=== PATIENT | female | born 1955 | race Caucasian/White ===

== ENCOUNTER 2019-10-29 10:30 | Outpatient (CLI) | payer MEDICARE, BC, OTHER, SELFPAY ==
--- NOTE | ~2019-10-29 | MM_ITS ---
EXAMINATION: MM screening ermias BI w kasandra HISTORY: Screening mammogram TECHNIQUE: Craniocaudal and mediolateral oblique 3-D tomosynthesis images were obtained and synthetic 2-D images were generated. CAD analysis was submitted and interpreted. COMPARISON: Comparison to multiple prior studies sequentially, with oldest reviewed study dated 06/01. BREAST PARENCHYMAL COMPOSITION: There are scattered areas of fibroglandular density. FINDINGS: There is no evidence of suspicious mass, calcification, or architectural distortion to sugg est malignancy in either breast. There has been no suspicious interval change. IMPRESSION: 1. No mammographic evidence of malignancy. 2. Recommend routine screening mammography in one year. BI-RADS Category 1: Negative Reviewed, dictated and finalized at location A. RY KILN OPERATOR
== END 2019-10-29 10:31 | disposition home or self-care (01) ==
LOC: ANHIMG 10:38
PROVIDERS: Visit Provider Student in an Organized Health Care Education/Training Program
DX: Z12.31 Encounter for screening mammogram for malignant neoplasm of breast (principal)
CPT/HCPCS: 77063; 77067

== ENCOUNTER 2021-01-25 08:46 | Outpatient (CLI) | payer MEDICARE, BC, OTHER, SELFPAY ==
--- NOTE | ~2021-01-25 | DEXA_ITS ---
Bone Density Report Name: Sally Blount Age: 65 Sex: Female Ethnicity: White Date of : 1955 Indication: monitoring treatment; height loss; hysterectomy; rheumatoid arthritis; Referring Provider: Karina Yoder Study: Bone densitometry was performed. Exam Date: January 25, 2021 Accession number: [id number] Bone Density: Region BMD T-score Z-score Classification AP Spine (L1, L2, L3) 1.085 0.6 2.5 Normal Femoral Neck (Left) 0.688 -1.5 0.2 Osteopenia Total Hip (Left) 0.863 -0.7 0.7 Normal Total Hip Bilateral Avg 0.855 -0.8 0.7 Normal Femoral Neck (Right) 0.689 -1.4 0.2 Osteopenia Total Hip (Right) 0.846 -0.8 0.6 Normal World Health Organization criteria for BMD impression classify patients as: Normal (T-score at or above -1.0), Osteopenia (T-score between -1.0 and -2.5), or Osteoporosis (T-score at or below -2.5). 10-year Fracture Risk: FRAX not reported because: Treated for osteoporosis Previous Exams: Region Exam Age BMD T-score BMD Change BMD Change Date g/cm2 vs Baseline vs Previous AP Spine(L1, L2, L3) 01/25/2021 65 1.085 0.6 0.043(4.1%)# 0.024(2.3%)* 10/21/2018 63 1.061 0.4 0.019(1.8%)# -0.076(-6.7%)* 09/12/2016 61 1.136 1.1 0.095(9.1%)# 0.062(5.7%)# 07/13/2013 58 1.075 0.5 0.033(3.2%)# -0.013(-1.2%)# 02/13/2011 55 1.088 0.6 0.046(4.4%)* -0.070(-6.0%)* 07/07/2008 53 1.158 1.3 0.116(11.1%)* 0.088(8.3%)* 05/27/2006 51 1.069 0.5 0.027(2.6%)* 0.027(2.6%)* 05/21/2003 48 1.042 0.2 Total Hip(Left) 01/25/2021 65 0.863 -0.7 -0.043(-4.8%)# -0.053(-5.8%)* 10/21/2018 63 0.916 -0.2 0.010(1.1%)# 0.025(2.8%) 09/12/2016 61 0.891 -0.4 -0.015(-1.7%)# 0.013(1.5%)# 07/13/2013 58 0.878 -0.5 -0.028(-3.1%)# -0.009(-1.0%)# 02/13/2011 55 0.886 -0.5 -0.019(-2.1%) 0.004(0.4%) 07/07/2008 53 0.883 -0.5 -0.023(-2.6%) 0.026(3.1%) 05/27/2006 51 0.856 -0.7 -0.049(-5.4%)* -0.049(-5.4%)* 05/21/2003 48 0.906 -0.3 Total Hip(Right) 01/25/2021 65 0.846 -0.8 -0.020(-2.3%)# -0.043(-4.9%)* 10/21/2018 63 0.889 -0.4 0.023(2.7%)# 0.028(3.2%)* 09/12/2016 61 0.861 -0.7 -0.005(-0.6%)# -0.008(-1.0%)# 07/13/2013 58 0.870 -0.6 0.003(0.4%)# 0.035(4.2%)# 02/13/2011 55 0.835 -0.9 -0.031(-3.6%)* -0.028(-3.3%)* 07/07/2008 53 0.863 -0.6 -0.003(-0.4%) 0.019(2.3%) 05/27/2006 51 0.844 -0.8 -0.023(-2.6%) -0.023(-2.6%) 05/21/2003 48 0.866 -0.6 *Denotes significance at 95% confidence level, LSC for AP Spine = 0
--- NOTE | ~2021-01-25 | MM_ITS ---
EXAMINATION: MM screening ermias BI w kasandra HISTORY: Screening mammogram TECHNIQUE: Craniocaudal and mediolateral oblique 3-D tomosynthesis images were obtained and synthetic 2-D images were generated. CAD analysis was submitted and interpreted. COMPARISON: 10/29/2019, 10/21/2018, 10/03/2017 bilateral digital screening mammogram examinations BREAST PARENCHYMAL COMPOSITION: There are scattered areas of fibroglandular density. FINDINGS: There is no evidence of suspicious mass, calcification, or architectural distortion to sugg est malignancy in either breast. There has been no suspicious interval change. IMPRESSION: 1. No mammographic evidence of malignancy. 2. Recommend routine screening mammography in one year. BI-RADS Category 1: Negative Reviewed, dictated and finalized at location A.
== END 2021-01-25 08:47 | disposition home or self-care (01) ==
LOC: ANHIMG 08:48
PROVIDERS: Visit Provider Student in an Organized Health Care Education/Training Program
DX: Z12.31 Encounter for screening mammogram for malignant neoplasm of breast (principal); Z78.0 Asymptomatic menopausal state; M85.852 Other specified disorders of bone density and structure, left thigh; M85.851 Other specified disorders of bone density and structure, right thigh
CPT/HCPCS: 77063; 77067; 77080

== ENCOUNTER 2022-01-29 10:20 | Outpatient (CLI) | payer MEDICARE, BC, OTHER, SELFPAY ==
--- NOTE | ~2022-01-29 | MM_ITS ---
EXAMINATION: MM screening ermias BI w kasandra HISTORY: Screening mammogram TECHNIQUE: Craniocaudal and mediolateral oblique 3-D tomosynthesis images were obtained and synthetic 2-D images were generated. CAD analysis was submitted and interpreted. COMPARISON: 01/25/2021, 10/29/2019, 10/21/2018 bilateral screening mammogram examinations BREAST PARENCHYMAL COMPOSITION: There are scattered areas of fibroglandular density. FINDINGS: There is no evidence of suspicious mass, calcification, or architectural distortion to sugg est malignancy in either breast. There has been no suspicious interval change. IMPRESSION: 1. No mammographic evidence of malignancy. 2. Recommend routine screening mammography in one year. BI-RADS Category 1: Negative Reviewed, dictated and finalized at location A.
== END 2022-01-29 10:21 | disposition home or self-care (01) ==
PROVIDERS: Visit Provider Student in an Organized Health Care Education/Training Program
DX: Z12.31 Encounter for screening mammogram for malignant neoplasm of breast (principal)
CPT/HCPCS: 77063; 77067

== ENCOUNTER 2022-09-30 14:40 | Emergency (ER) | payer MEDICARE, BC, OTHER, SELFPAY ==
--- NOTE | ~2022-09-30 | XR_ITS ---
EXAM: XR finger 3rd RT min 2V DATE: 09/30/2022 15:29 HISTORY: trauma, LACERATION TO POSTERIOR SIDE OF 3RD DIGIT @ DIP . COMPARISON: None available. FINDINGS: Normal mineralization. No fracture or dislocation. No lytic or blastic lesion. Severe join t space narrowing, osteophytosis or erosive deformity in the visualized PIP and DIP joints, likely re presenting erosive osteoarthritis or other arthropathy. No erosion or periosteal change. Posterior fi nger laceration, roughly at the level of the distal third proximal phalange of. IMPRESSION: No acute osseous finding in the right third finger. Reviewed, dictated and finalized at location K. ICIAN PRACTICE ADMINISTRATOR
[2022-09-30 14:42] VITALS: BP 136/78; PULSE 73; RESP 16; TEMP 36.6; O2SAT 100
[2022-09-30] MEDS: TETANUS,DIPHTHERIA,AC PERTUSSIS ADULT (0.5 ML) BOOSTRIX IM (15:22)
--- NOTE | 2022-09-30 16:22 | ED.WOUNDLAC ---
HPI - Wound/Laceration General Chief Complaint: Wound/Laceration Stated Complaint: laceration Time Seen by Provider: 09/30/22 14:52 History of Present Illness HPI narrative: Patient is a 67-year-old female who presents ER with a laceration to the right third digit. Middle phalanx dorsal aspect. No numbness or tingling. Normal strength and range of motion. 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 Unknown last tetanus shot. Related Data Home Medications Medication Instructions Recorded Confirmed bupropion HCl 150 mg 24 hr tablet, 150 mg PO QAM 11/02/19 08/13/22 extended release (Wellbutrin XL) irbesartan 150 mg tablet (Avapro) 150 mg PO DAILY 11/02/19 08/13/22 omeprazole 40 mg capsule,delayed 40 mg PO DAILY 11/02/19 08/13/22 release cholecalciferol (vitamin D3) 125 5,000 unit PO DAILY 04/20/20 08/13/22 mcg (5,000 unit) capsule aspirin 81 mg tablet,delayed 81 mg PO DAILY 07/17/21 08/13/22 release atorvastatin 20 mg tablet 20 mg PO DAILY 01/23/22 08/13/22 fenofibrate 54 mg tablet 54 mg PO DAILY 01/23/22 08/13/22 icosapent ethyl 1 gram capsule 2 g PO BID 01/23/22 08/13/22 (Vascepa) Allergies Allergy/AdvReac Type Severity Reaction Status Date / Time Penicillins Allergy Unknown Unknown Verified 08/13/22 10:54 promethazine Allergy Unknown Unknown Verified 08/13/22 10:54 Sulfa (Sulfonamide Allergy Unknown Unknown Verified 08/13/22 10:54 Antibiotics) sulfamethizole Allergy Unknown Unknown Verified 08/13/22 10:54 trimethoprim Allergy Unknown Unknown Verified 08/13/22 10:54 Review of Systems Musculoskeletal: Musculoskeletal: Denies arthralgias and Denies joint swelling Integumentary/Breasts: Skin/Breast: Denies erythema and Denies rash Comments: Finger laceration Neurologic: Denies focal weakness and Denies numbness PMFSH Past Medical History Medical History Acid reflux Epiretinal membrane, right eye FSGS (focal segmental glomerulosclerosis) Heart disease History of vaginal delivery Hypothyroid Kidney disease Liver disease Liver disease Macular hole of right eye Migraines Osteopenia Prediabetes Skin cancer Vitreous membranes and strands of right eye 10/28/2020 - macular peel Surgical History Surgical History H/O vitrectomy Mac repair with epiretinal membrane peel History of cholecystectomy History of hysterectomy [place] teeth removed Family History Family History Mother Hypertension Other Family history of hearing loss Social History Social History Smoking status: Never smoker Second hand tobacco smoke exposure: No Alcohol intake: never Exam Narrative: GENERAL: Well-appearing, well-nourished, and in no acute distress. HEAD: Normocephalic, atraumatic. HEART: Regular rate and rhythm. Normal peripheral pulses. EXTREMITIES: Right third digit with laceration over the middle phalanx on the dorsal aspect. Well approximated. No tendon involvement. Normal strength with flexion extension at the PIP and DIP. Neurovascular intact. SKIN: Warm, dry, no rash. NEURO: Alert and oriented x3. PSYCH: Normal mood and affect. Course Course Emergency Course: I repaired the finger. No bony injury on x-ray as interpreted by me and the radiologist. Tetanus shot updated. Discharge home. Vital Signs Vital signs: Vital Signs Temperature 98 F 09/30/22 14:42 Pulse Rate 73 09/30/22 14:42 Respiratory Rate 16 09/30/22 14:42 Blood Pressure 136/78 09/30/22 14:42 Pulse Oximetry 100 09/30/22 14:42 Temperature 98 F 09/30/22 14:42 Pulse Rate 73 09/30/22 14:42 Respiratory Rate 16 09/30/22 14:42 Blood Pressure 136/78 09/30/22 14:42 Pulse Oximetry 100 09/30/22 14:42 Procedures Laceration Laceratio
[2022-09-30 16:39] VITALS: BP 127/83; PULSE 77; RESP 15; O2SAT 99
== END 2022-09-30 16:40 | disposition home or self-care (01) ==
PROVIDERS: Emergency Provider Emergency Medicine
DX: S61.212A Laceration without foreign body of right middle finger without damage to nail, initial encounter (principal); Z23 Encounter for immunization; I51.9 Heart disease, unspecified; N28.9 Disorder of kidney and ureter, unspecified; K76.9 Liver disease, unspecified; E03.9 Hypothyroidism, unspecified; M85.80 Other specified disorders of bone density and structure, unspecified site; K21.9 Gastro-esophageal reflux disease without esophagitis; R73.03 Prediabetes; Z85.828 Personal history of other malignant neoplasm of skin; Z79.82 Long term (current) use of aspirin; Z90.710 Acquired absence of both cervix and uterus; W26.0XXA Contact with knife, initial encounter
CPT/HCPCS: 12001; 73140; 90471; 90715; 99283

== ENCOUNTER 2023-03-12 09:36 | Outpatient (CLI) | payer MEDICARE, BC, OTHER, SELFPAY ==
--- NOTE | ~2023-03-12 | MM_ITS ---
EXAMINATION: MM screening ermias BI w kasandra HISTORY: Screening mammogram TECHNIQUE: Craniocaudal and mediolateral oblique 3-D tomosynthesis images were obtained and synthetic 2-D images were generated. CAD analysis was submitted and interpreted. COMPARISON: No prior mammogram is available for comparison at this institution. BREAST PARENCHYMAL COMPOSITION: There are scattered areas of fibroglandular density. FINDINGS: There is no evidence of suspicious mass, calcification, or architectural distortion to sugg est malignancy in either breast. There has been no suspicious interval change. IMPRESSION: 1. No mammographic evidence of malignancy. 2. Recommend routine screening mammography in one year. BI-RADS Category 1: Negative Reviewed, dictated and finalized at location A.
--- NOTE | ~2023-03-12 | DEXA_ITS ---
Bone Density Report Name: LORENZA CONWAY Age: 68 Sex: Female Ethnicity: White Date of : 1955 Indication: postmenopausal; screening for osteoporosis; height loss; hysterectomy; rheumatoid arthritis; Referring Provider: LORIN CAPELLAN Study: Bone densitometry was performed. Exam Date: March 12, 2023 Accession number: [id number] Bone Density: Region BMD T-score Z-score Classification AP Spine(L1, L2, L3) 1.075 0.5 2.6 Normal Femoral Neck (Left) 0.711 -1.2 0.5 Osteopenia Total Hip (Left) 0.870 -0.6 0.9 Normal Femoral Neck (Right) 0.644 -1.9 -0.1 Osteopenia Total Hip (Right) 0.831 -0.9 0.6 Normal Total Hip Mean 0.850 -0.8 0.8 Normal World Health Organization criteria for BMD impression classify patients as: Normal (T-score at or above -1.0), Osteopenia (T-score between -1.0 and -2.5), or Osteoporosis (T-score at or below -2.5). 10-year Fracture Risk(1): Major Osteoporotic Fracture 14% Hip Fracture 2.7% Reported Risk Factors: [place] (), Neck BMD=0.644, BMI=27.4, rheumatoid arthritis (1) FRAX(R) Version 3.08. Fracture probability calculated for an untreated patient. Fracture probability may be lower if the patient has received treatment. Previous Exams: Region Exam Age BMD T-score BMD Change BMD Change Date g/cm2 vs Baseline vs Previous AP Spine (L1-L3) 03/12/2023 68 1.075 0.5 0.000 (0.0%)# -0.010 (-0.9%) 01/25/2021 65 1.085 0.6 0.010 (1.0%)# 0.024 (2.3%)* 10/21/2018 63 1.061 0.4 -0.014 (-1.3%) -0.076 (-6.7%) 09/12/2016 61 1.136 1.1 0.062 (5.7%)# 0.062 (5.7%)# 07/13/2013 58 1.075 0.5 Total Hip(Left) 03/12/2023 68 0.870 -0.6 -0.008 (-0.9%) 0.007 (0.9%) 01/25/2021 65 0.863 -0.7 -0.015 (-1.7%) -0.053 (-5.8%) 10/21/2018 63 0.916 -0.2 0.038 (4.3%)# 0.025 (2.8%) 09/12/2016 61 0.891 -0.4 0.013 (1.5%)# 0.013 (1.5%)# 07/13/2013 58 0.878 -0.5 Total Hip(Right) 03/12/2023 68 0.831 -0.9 -0.039 (-4.5%) -0.015 (-1.8%) 01/25/2021 65 0.846 -0.8 -0.024 (-2.7%) -0.043 (-4.9%) 10/21/2018 63 0.889 -0.4 0.020 (2.3%)# 0.028 (3.2%)* 09/12/2016 61 0.861 -0.7 -0.008 (-1.0%) -0.008 (-1.0%) 07/13/2013 58 0.870 -0.6 *Denotes significance at 95% confidence level, LSC for AP Spine = 0.022 g/cm2, LSC for Total Hip = 0.027 g/cm2 # Denotes dissimilar scan types or analysis methods Clinical Information Provided by Patient: Has rheumatoid arthritis Has used the following medications: Vitamin D
== END 2023-03-12 09:37 | disposition home or self-care (01) ==
LOC: ANHIMG 09:38
PROVIDERS: Visit Provider Registered Nurse
DX: Z12.31 Encounter for screening mammogram for malignant neoplasm of breast (principal); Z78.0 Asymptomatic menopausal state; M85.852 Other specified disorders of bone density and structure, left thigh; M85.851 Other specified disorders of bone density and structure, right thigh
CPT/HCPCS: 77063; 77067; 77080

== ENCOUNTER 2023-06-30 11:15 | Emergency (ER) | payer MEDICARE, BC, OTHER, SELFPAY ==
--- NOTE | ~2023-06-30 | XR_ITS ---
EXAMINATION: XR foot LT min 3V DATE: 06/30/2023 13:30 INDICATION: TECHNIQUE: Dorsoplantar, two oblique and lateral views of the left foot were obtained. COMPARISON: None. FINDINGS: 35 degrees hallux valgus. Suggestion of prior bunionectomy/osteotomy at the medial head of the left f irst metatarsal. No fracture. Polyarticular osteoarthritis, moderate severity at the first metatarsop halangeal, second and third tarsal metatarsal, the naviculocuneiform and multiple interphalangeal sruthi nts with mild osteoarthritis at many of the remaining joints throughout the left foot. Small Achilles and plantar calcaneal spurs. IMPRESSION: 1. Moderate polyarticular osteoarthritis at the left mid and forefoot. No acute osseous abnormality. 2. Hallux valgus with likely prior bunionectomy at the medial head of the first metatarsal. Reviewed, dictated and finalized at location A.
[2023-06-30 11:24] VITALS: BP 97/55; PULSE 84; RESP 16; TEMP 36.8; O2SAT 100
--- NOTE | 2023-06-30 13:03 | ED.GENADULT ---
HPI - General Adult General Chief complaint: Extremity Problem,Nontraumatic Stated complaint: L foot pain Time Seen by Provider: 06/30/23 15:31 History of Present Illness HPI narrative: Sally Blount is a 68 y/o female with reports of having pain/ feverish feeling to her left second and third toes that started 4 days ago. She denies any trauma or injury to her toes. Related Data Home Medications Medication Instructions Recorded Confirmed bupropion HCl 150 mg 24 hr tablet, 150 mg PO QAM 11/02/19 01/15/23 extended release (Wellbutrin XL) irbesartan 150 mg tablet (Avapro) 150 mg PO DAILY 11/02/19 01/15/23 omeprazole 40 mg capsule,delayed 40 mg PO DAILY 11/02/19 01/15/23 release cholecalciferol (vitamin D3) 125 5,000 unit PO DAILY 04/20/20 01/15/23 mcg (5,000 unit) capsule aspirin 81 mg tablet,delayed 81 mg PO DAILY 07/17/21 01/15/23 release atorvastatin 20 mg tablet 20 mg PO DAILY 01/23/22 01/15/23 fenofibrate 54 mg tablet 54 mg PO DAILY 01/23/22 01/15/23 omega 1-mje-tvb-fish oil 60 mg-90 1 cap PO DAILY 01/01/23 01/15/23 mg-500 mg capsule (Fish Oil) Allergies Allergy/AdvReac Type Severity Reaction Status Date / Time Penicillins Allergy Unknown Anaphylaxis Verified 06/30/23 15:24 promethazine Allergy Unknown Anaphylaxis Verified 06/30/23 15:24 Sulfa (Sulfonamide Allergy Unknown SHORTNESS Verified 06/30/23 15:24 Antibiotics) OF BREATH sulfamethizole Allergy Unknown SHORTNESS Verified 06/30/23 15:24 OF BREATH trimethoprim Allergy Unknown SHORTNESS Verified 06/30/23 15:24 OF BREATH PMFSH Past Medical History Medical History Acid reflux Epiretinal membrane, right eye FSGS (focal segmental glomerulosclerosis) Heart disease History of vaginal delivery Hypothyroid Kidney disease Liver disease Liver disease Macular hole of right eye Migraines Osteoarthritis (arthritis due to wear and tear of joints) Osteopenia Prediabetes Rheumatoid arteritis Skin cancer Vitreous membranes and strands of right eye 10/28/2020 - macular peel Surgical History Surgical History H/O vitrectomy Mac repair with epiretinal membrane peel History of cholecystectomy History of hysterectomy [place] teeth removed Family History Family History Mother Hypertension Other Family history of hearing loss Social History Social History Smoking status: Never smoker Second hand tobacco smoke exposure: No Alcohol intake: never Substance use: never Lack of Transportation: No Lack of Food: Never True Current Housing: I Have Housing Concerned About Future Housing: No Difficulty Paying Gas/Electric Bills: No Difficulty Paying for Meds: No Currently Unemployed: No Difficulty w/ Childcare or Family Care: Decline to Answer Living arrangements: with family Additional living arrangements comments: Occupation/Education: retired Gender identity (if verbalized by the patient): Female Sexual Orientation (if Verbalized by the Patient): Straight or Heterosexual Spiritual care concerns: No Course Vital Signs Vital signs: Vital Signs Temperature 36.8 C 06/30/23 11:24 Pulse Rate 84 06/30/23 11:24 Respiratory Rate 16 06/30/23 11:24 Blood Pressure 97/55 L 06/30/23 11:24 Pulse Oximetry 100 06/30/23 11:24 Oxygen Delivery Room Air 06/30/23 11:24 Temperature 36.8 C 06/30/23 15:00 Pulse Rate 71 06/30/23 16:51 Respiratory Rate 16 06/30/23 16:51 Blood Pressure 114/68 06/30/23 16:51 Pulse Oximetry 98 06/30/23 16:51 Oxygen Delivery Room Air 06/30/23 15:17 Medical Decision Making Vital Signs Vital Signs: Vital Signs Temperature 36.8 C 06/30/23 11:24 Pulse Rate 84 06/30/23 11:24 Respiratory Rate 16
[2023-06-30 13:16] LABS: Basophils Absolute Auto 0.1 K/mm3 (0.0-0.1); Basophils Percent Auto 0.5 % (0.2-1.2); Eosinophils Absolute Auto 0.2 K/mm3 (0-0.3); Eosinophils Percent Auto 2.3 % (0-4.4); Hematocrit 39.3 % (37.0-47.0); Hemoglobin 12.1 g/dL (12.0-15.0); Immature Granulocyte Absolute 0.02 K/mm3 (0.00-0.031); Immature Granulocyte Percent A 0.2 % (0-0.5); Lymphocytes Absolute Auto 1.82 K/mm3 (0.9-3.2); Lymphocytes Percent Auto 17.9 % (18.3-44.2); Mean Corpuscular HGB Conc 30.8 g/dl (32-36); Mean Corpuscular Hemoglobin 32.2 pg (26-34); Mean Corpuscular Volume 104.5 fl (80-100); Mean Platelet Volume 11.2 fl (7.4-10.4); Monocytes Absolute Auto 0.7 K/mm3 (0.1-0.6); Monocytes Percent Auto 6.7 % (2.6-8.5); Neutrophils Absolute Auto 7.4 K/mm3 (1.3-6.7); Neutrophils Percent Auto 72.4 % (45.5-73.1); Platelet Count Result 208 k/mm3 (150-375); Red Blood Count 3.76 M/mm3 (4.2-5.4); Red Cell Distribution Width 12.6 % (11.5-14.5); White Blood Count 10.2 K/mm3 (4.5-10.0)
[2023-06-30 13:42] LABS: Alanine Aminotransferase 25 U/L (6-35); Albumin Level 4.3 g/dL (3.5-5.1); Alkaline Phosphatase 33 U/L (38-126); Anion Gap 9 mmol/L (8-16); Aspartate Amino Transferase 27 U/L (14-36); Bilirubin,Total 0.5 mg/dL (0.2-1.3); Blood Urea Nitrogen 31 mg/dL (7-17); Calcium 9.8 mg/dL (8.4-10.2); Carbon Dioxide 24 mmol/L (22-30); Chloride 108 mmol/L (98-107); Estimated CRCL calculation 26 ml/min; Estimated Glomerular Filt Rate 30; Glucose 164 mg/dL (65-110); Potassium 4.3 mmol/L (3.4-5.0); Sodium 141 mmol/L (137-145)
[2023-06-30 15:00] VITALS: BP 113/62; PULSE 67; RESP 16; TEMP 36.8; O2SAT 100
[2023-06-30 15:17] VITALS: BP 120/69; PULSE 67; RESP 16; O2SAT 98
[2023-06-30 15:22] VITALS: BP 120/69; PULSE 72; RESP 16; O2SAT 98
--- NOTE | 2023-06-30 16:14 | ED.EXTPRO ---
HPI - Extremity Problem General Chief complaint: Extremity Problem,Nontraumatic Stated complaint: L foot pain Time Seen by Provider: 06/30/23 15:31 History of Present Illness HPI Narrative: This is a 68F with history of HTN, hepatitis and chronic kidney disease who presents to the ED complaining of left foot pain for the past 5 days. She describes it as sore and sharp rated 8-10/10, first present in the 2nd toe, then moving to the 3rd toe. It is associated with spreading redness. She denies recent injury, illness or change in diet. Related Data Home Medications Medication Instructions Recorded Confirmed bupropion HCl 150 mg 24 hr tablet, 150 mg PO QAM 11/02/19 01/15/23 extended release (Wellbutrin XL) irbesartan 150 mg tablet (Avapro) 150 mg PO DAILY 11/02/19 01/15/23 omeprazole 40 mg capsule,delayed 40 mg PO DAILY 11/02/19 01/15/23 release cholecalciferol (vitamin D3) 125 5,000 unit PO DAILY 04/20/20 01/15/23 mcg (5,000 unit) capsule aspirin 81 mg tablet,delayed 81 mg PO DAILY 07/17/21 01/15/23 release atorvastatin 20 mg tablet 20 mg PO DAILY 01/23/22 01/15/23 fenofibrate 54 mg tablet 54 mg PO DAILY 01/23/22 01/15/23 omega 0-dum-qpa-fish oil 60 mg-90 1 cap PO DAILY 01/01/23 01/15/23 mg-500 mg capsule (Fish Oil) Allergies Allergy/AdvReac Type Severity Reaction Status Date / Time Penicillins Allergy Unknown Anaphylaxis Verified 06/30/23 15:24 promethazine Allergy Unknown Anaphylaxis Verified 06/30/23 15:24 Sulfa (Sulfonamide Allergy Unknown SHORTNESS Verified 06/30/23 15:24 Antibiotics) OF BREATH sulfamethizole Allergy Unknown SHORTNESS Verified 06/30/23 15:24 OF BREATH trimethoprim Allergy Unknown SHORTNESS Verified 06/30/23 15:24 OF BREATH Review of Systems Review of Systems: CONSTITUTIONAL: Denies fever, chills, or sweats. CARDIOVASCULAR: Denies chest pain, palpitations, or edema. RESPIRATORY: Denies cough or dyspnea. GASTROINTESTINAL: Denies abdominal pain, nausea, vomiting, or diarrhea. GENITOURINARY: Denies dysuria or hematuria. SKIN: Redness and swelling of the toes of the left foot. Denies itching. MUSCULOSKELETAL: 2nd and 3rd toe pain of the left foot Denies back pain, or myalgia. NEUROLOGIC: Denies headache, numbness, dizziness, or weakness. PSYCHIATRIC: Denies anxiety or depression. [facility] Past Medical History Medical History Acid reflux Epiretinal membrane, right eye FSGS (focal segmental glomerulosclerosis) Heart disease History of vaginal delivery Hypothyroid Kidney disease Liver disease Liver disease Macular hole of right eye Migraines Osteoarthritis (arthritis due to wear and tear of joints) Osteopenia Prediabetes Rheumatoid arteritis Skin cancer Vitreous membranes and strands of right eye 10/28/2020 - macular peel Surgical History Surgical History H/O vitrectomy Mac repair with epiretinal membrane peel History of cholecystectomy History of hysterectomy [place] teeth removed Family History Family History Mother Hypertension Other Family history of hearing loss Social History Social History Smoking status: Never smoker Second hand tobacco smoke exposure: No Alcohol intake: never Substance use: never Lack of Transportation: No Lack of Food: Never True Current Housing: I Have Housing Concerned About Future Housing: No Difficulty Paying Gas/Electric Bills: No Difficulty Paying for Meds: No Currently Unemployed: No Difficulty w/ Childcare or Family Care: Decline to Answer Living arrangements: with family Additional living arrangements comments: Occupation/Education: retired Gender identity (if verbalized by the patient): Female Sexual Orientation (if Verbalized by the Patient): Straight or H
[2023-06-30 16:51] VITALS: BP 114/68; PULSE 71; RESP 16; O2SAT 98
== END 2023-06-30 16:59 | disposition home or self-care (01) ==
PROVIDERS: Nurse Practitioner Family; Emergency Provider Preventive Medicine Aerospace Medicine
DX: L03.116 Cellulitis of left lower limb (principal); E03.9 Hypothyroidism, unspecified; K76.9 Liver disease, unspecified; K21.9 Gastro-esophageal reflux disease without esophagitis; M19.90 Unspecified osteoarthritis, unspecified site; M85.80 Other specified disorders of bone density and structure, unspecified site; Z85.828 Personal history of other malignant neoplasm of skin; Z90.49 Acquired absence of other specified parts of digestive tract; Z90.710 Acquired absence of both cervix and uterus; Z79.82 Long term (current) use of aspirin
CPT/HCPCS: 36415; 73630; 80053; 85025; 99283

== ENCOUNTER 2024-03-09 14:09 | Outpatient (CLI) | payer MEDICARE, BC, OTHER, SELFPAY ==
--- NOTE | ~2024-03-09 | MM_ITS ---
EXAMINATION: MM screening ermias BI w kasandra HISTORY: Screening TECHNIQUE: Craniocaudal and mediolateral oblique 3-D tomosynthesis images were obtained and synthetic 2-D images were generated. CAD analysis was submitted and interpreted. COMPARISON: Comparison to multiple prior studies sequentially, with oldest reviewed study dated 10/2017. BREAST PARENCHYMAL COMPOSITION: Not dense: There are scattered areas of fibroglandular density. FINDINGS: There is no evidence of suspicious mass, calcification, or architectural distortion to sugg est malignancy in either breast. There has been no suspicious interval change. IMPRESSION: 1. No mammographic evidence of malignancy. 2. Recommend routine screening mammography in one year. BI-RADS Category 1: Negative Reviewed, dictated and finalized at location B.
== END 2024-03-09 14:10 | disposition home or self-care (01) ==
LOC: ANHIMG 14:10
PROVIDERS: Visit Provider Registered Nurse
DX: Z12.31 Encounter for screening mammogram for malignant neoplasm of breast (principal)
CPT/HCPCS: 77063; 77067

== ENCOUNTER 2025-02-21 14:14 | Outpatient (CLI) | payer MEDICARE, BC, OTHER, SELFPAY ==
--- NOTE | ~2025-02-21 | DEXA_ITS ---
Bone Density Report Name: LORENZA CONWAY Age: 69 Sex: Female Ethnicity: White Date of : 1955 Indication: postmenopausal; screening for osteoporosis; height loss; hysterectomy; rheumatoid arthritis; Referring Provider: TANJA GUZMAN Study: Bone densitometry was performed. Exam Date: February 21, 2025 Accession number: [id number] Bone Density: Region BMD T-score Z-score Classification AP Spine(L1-L4) 1.145 0.9 3.1 Normal Femoral Neck (Left) 0.710 -1.3 0.7 Osteopenia Total Hip (Left) 0.929 -0.1 1.5 Normal Femoral Neck (Right) 0.677 -1.6 0.4 Osteopenia Total Hip (Right) 0.860 -0.7 0.9 Normal Total Hip Mean 0.894 -0.4 1.2 Normal World Health Organization criteria for BMD impression classify patients as: Normal (T-score at or above -1.0), Osteopenia (T-score between -1.0 and -2.5), or Osteoporosis (T-score at or below -2.5). 10-year Fracture Risk(1): Major Osteoporotic Fracture 13% Hip Fracture 2.4% Reported Risk Factors: [place] (), Neck BMD=0.677, BMI=27.8, rheumatoid arthritis (1) FRAX(R) Version 3.08. Fracture probability calculated for an untreated patient. Fracture probability may be lower if the patient has received treatment. Previous Exams: Region Exam Age BMD T-score BMD Change BMD Change Date g/cm2 vs Baseline vs Previous AP Spine (L1-L4) 02/21/2025 69 1.145 0.9 0.052 (4.8%)# 0.034 (3.0%)* 10/21/2018 63 1.111 0.6 0.018 (1.7%)# -0.035 (-3.0%) 09/12/2016 61 1.146 0.9 0.053 (4.8%)# 0.053 (4.8%)# 07/13/2013 58 1.093 0.4 Total Hip(Left) 02/21/2025 69 0.929 -0.1 0.051 (5.9%)# 0.059 (6.8%)* 03/12/2023 68 0.870 -0.6 -0.008 (-0.9%) 0.007 (0.9%) 01/25/2021 65 0.863 -0.7 -0.015 (-1.7%) -0.053 (-5.8%) 10/21/2018 63 0.916 -0.2 0.038 (4.3%)# 0.025 (2.8%) 09/12/2016 61 0.891 -0.4 0.013 (1.5%)# 0.013 (1.5%)# 07/13/2013 58 0.878 -0.5 Total Hip(Right) 02/21/2025 69 0.860 -0.7 -0.010 (-1.1%) 0.029 (3.5%)* 03/12/2023 68 0.831 -0.9 -0.039 (-4.5%) -0.015 (-1.8%) 01/25/2021 65 0.846 -0.8 -0.024 (-2.7%) -0.043 (-4.9%) 10/21/2018 63 0.889 -0.4 0.020 (2.3%)# 0.028 (3.2%)* 09/12/2016 61 0.861 -0.7 -0.008 (-1.0%) -0.008 (-1.0%) 07/13/2013 58 0.870 -0.6 *Denotes significance at 95% confidence level, LSC for AP Spine = 0.022 g/cm2, LSC for Total Hip = 0.027 g/cm2 # Denotes dissimilar scan types or analysis methods Clinical Information Provided by Patient: Has rheumatoid arthritis Has used the following medications: Vitamin D Has the following medical conditions: Hysterectomy, FSGS/KIDNEY DISEASE Patient maximum height was 63 Menopause Age: 36 Onset of menses at age 12 Number of children 1 Impression: The patient has low bone mass, based on the Right Femoral Neck T-score. The patient has an estimated ten-year risk of hip fracture of 2.4% and an estimated ten-year risk of major fracture of 13%, based on the WHO FRAX algorithm. No significant bone loss was observed. Discussion: BONE DENSITY IS LOW AT ONE OR MORE SKELETAL SITES. This patient's lowest T-score is low at one or more skeletal sites. It meets the World Health Organization's (WHO) criteria for ?low bone mass? (T-score between -1.0 and -2.5). The patient's 10-year risk of fracture as calculated by FRAX is less than the threshold where pharmacological therapy is recommended by the National Osteoporosis Foundation (NOF). However, all treatment decisions require clinical judgment and consideration of individual patient factors, including patient preferences, comorbidities, previous drug use, risk factors not captured in the FRAX model (e.g., frailty, falls, vitamin D deficiency, increased bone turnover, interval significant decline in bone density) and possible under or overestimation of fracture risk by FRAX. The patient should follow a healthful lifestyle (good nutrition with adequate calcium and vitamin D, and appropriate weight-bearing exercise). Follow-Up: Consider repeating this study in 2 to 3 years to reassess this patient's status, or sooner if there is some new clinical indication. Reported by: SEVERO on 02/21/2025 2:55:00 PM. Reviewed, dictated and finalized at location A.
== END 2025-02-21 14:15 | disposition home or self-care (01) ==
PROVIDERS: Visit Provider Nurse Practitioner Family
DX: M85.89 Other specified disorders of bone density and structure, multiple sites (principal); M85.852 Other specified disorders of bone density and structure, left thigh; M85.851 Other specified disorders of bone density and structure, right thigh; R79.89 Other specified abnormal findings of blood chemistry; Z13.820 Encounter for screening for osteoporosis
CPT/HCPCS: 77080

== ENCOUNTER 2025-05-11 08:59 | Outpatient (CLI) | payer MEDICARE, BC, OTHER, SELFPAY ==
--- NOTE | ~2025-05-11 | MM_ITS ---
EXAMINATION: screening [facility] BI w kasandra INDICATION: Asymptomatic, referred for screening mammogram COMPARISON: 03/09/2024 through 10/21/2018 TECHNIQUE: Digital Breast Tomosynthesis CC, MLO views of Both breasts were obtained with computer-aided detection to assist in interpretation of the study. FINDINGS: There are scattered areas of fibroglandular density. There is a mass in the inferior central right breast at middle third. Elsewhere, there are no mammographic features of malignancy. IMPRESSION: 1. Right breast Mass. 2. No evidence of malignancy in the Left breast. RECOMMENDATION: Right breast Diagnostic mammogram with true lateral, appropriate spot compression views and an ultrasound. BI-RADS Category 0: Incomplete: Needs additional imaging evaluation. Reviewed, dictated and finalized at location B. IMPRESSION: 1. Right breast Mass. 2. No evidence of malignancy in the Left breast. RECOMMENDATION: Right breast Diagnostic mammogram with true lateral, appropriate spot compressi on views and an ultrasound. BI-RADS Category 0: Incomplete: Needs additional imaging evaluation.
--- OUTSIDE RECORDS SUMMARY | 2025-05-11 09:44 | XMS_ITS | Encounter Summary ---
Author Organization [facility] Address [address] [place] [address] Phone Care Team Providers Care Heel Sprayer First Name Role Phone Chas Osuna MD Unavailable [phone] Frank Alvarado MD Unavailabl e Margaret Brewster MD Unavailable [phone] Alisha Moe DO Primary Care Provider [phone] Garrett Pierre MD Primary Care Provi sherie Reggie Perry MD Primary Care Provider + Encounter Details Date Type Department Care Team (Late st Contact Info) Description 08/18/2024 Telephone [facility] Medicine Gastroenterology [address] [facility] 12th [place] [address] [place] [address] Cassie Atkins LPN Social History Tobacco Use Types Packs/Day Years Used Date Smoking Tobacco: Never Smokeless Tobacco: Never Alcohol Use Standard Drinks/Week Comments Never 0 (1 standard drink = 0.6 oz pur e alcohol) AUDIT-C Answer Date Recorded Q1: How often do you have a drink containing alcohol? Never 08/09/2024 Q2: How many drinks containi ng alcohol do you have on a typical day when you are drinking? Patient does not drink Q3: How often do you have si x or more drinks on one occasion? 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 Gender Identity Female 06/19/2020 1:01 PM CDT Sexual Orientation Straight 04/20/2019 8: 05 PM CDT documented as of this encounter Plan of Treatment Not on file documented as of this encounter Visit Diagnoses Not on filedocumented in this encounter Care Teams Heel Sprayer First Relationship Specialty Start Date End Date Alisha Moe DO [address] [address] PCP - General Family Medicine 08/09/24 10/11/24 Garrett Pierre MD [address] [facility] [address] [place] [address] PCP - General Internal Medicine 10/12/24 03/08/25 Reggie Perry MD [address] [place] [address] PCP - General Internal Medicine 03/09/25 Chas Osuna MD [address] [facility] [address] [place] [address] Consulting Physician Cardiology 08/09/24 Frank Alvarado MD [address] [place] [address] Consulting Physician Nephrology 08/09/24 Margaret Brewster MD [address] [place] [address] Referring Physician Gastroenterology 08/09/24 documented as of this encounter
--- OUTSIDE RECORDS SUMMARY | 2025-05-11 09:44 | XMS_ITS | Encounter Summary ---
Author Organization [facility] Address [address] [place] [address] Phone Care Team Providers Care Camouflage Specialist Name Role Phone Melvi Coffey MD Primary Care Provider Richardson Navarro Trejo DO Primary Care Provider [phone] Unknown, Notinfile Primary Care Provider Unavail able Dylan Navarro Trejo DO Primary Care Provider [phone] Miscellaneous, Not In File Primary Care Provider Unavailable Miscellaneous, Not In File Primary Care Provider Unavailable [facility] Primary Care Provider [phone] Reggie Padilla MD Primary Care Provider +- [phone] [facility] Primary Care Provider +- [phone] Chas Osuna MD Unavailable [phone] Frank Alvarado MD Unavailabl e Margaret Brewster MD Unavailable + [phone] Alisha Moe DO Primary Care Provider + [phone] Garrett Pierre MD Primary Care Provi sherie Reggie Perry MD Primary Care Provider + Encounter Details Date Type Department Care Team (Late st Contact Info) Description 02/05/2019 Orders Only [facility] Scanning, Provider Social History Tobacco Use Types Packs/Day Years Used Date Smoking Tobacco: Never Smokeless Tobacco: Never Comments Unknown Sex and Gender Information Value Date Recorded Sex Assigned at Not on file Legal Sex Female 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 Gender Identity Female 06/19/2020 1:01 PM CDT Sexual Orientation Straight 04/20/2019 8: 05 PM CDT documented as of this encounter Plan of Treatment Not on file documented as of this encounter Procedures Procedure Name Priority Date/Time Associated Diagnosis Comments SCAN - LABS 02/05/2019 documented in this encounter Results * SCAN - LABS (02/05/2019) us Provider Scanning Final Result documented in this encounter Visit Diagnoses Not on filedocumented in this encounter Care Teams Camouflage Specialist Relationship Specialty Start Date End Date Melvi Coffey MD [address] [place] [address] PCP - General 11/25/17 03/11/21 Navarro Richardson DO [address] [place] [address] PCP - General Family Medicine 03/12/21 03/14/21 Unknown, Notinfile PCP - General 03/15/21 05/27/21 Navarro Richardson DO [address] [place], [place] [address] PCP - General Family Medicine 05/28/21 10/09/21 Miscellaneous, Not In File PCP - General 10/10/21 2 Miscellaneous, Not In File PCP - General 10/11/21 [facility] [address] [place] [address] PCP - General 01/22/22 05/01/22 Reggie Padilla MD [address] [place] [address] PCP - General Internal Medicine 05/02/22 05/05/23 [facility] [address] [place] [address] PCP - General 05/06/23 08/08/24 Alisha Moe DO [address] [address] PCP - General Family Medicine 08/09/24 10/11/24 Garrett Pierre MD [address] [facility] [address] [place] [address] PCP - General Internal Medicine 10/12/24 03/08/25 Reggie Perry MD [address] [place] [address] PCP - General Internal Medicine 03/09/25 Chas Osuna MD [address] [facility] [address] [place] [address] Consulting Physician Cardiology 08/09/24 Frank Alvarado MD [address] [place] [address] Consulting Physician Nephrology 08/09/24 Margaret Brewster MD [address] [place] [address] Referring Physician Gastroenterology 08/09/24 documented as of this encounter
--- OUTSIDE RECORDS SUMMARY | 2025-05-11 09:44 | XMS_ITS | Encounter Summary ---
Author Organization [facility] Address [address] [place] [address] Phone Care Team Providers Care Marketing Support Coordinator Name Role Phone Reggie Padilla MD Primary Care Provider [phone] [facility] Primary Care Provider Chas Osuna MD Unavailable [phone] Frank Alvarado MD Unavailabl e Margaret Brewster MD Unavailable [phone] Alisha Moe DO Primary Care Provider [phone] Garrett Pierre MD Primary Care Provi sherie Reggie Perry MD Primary Care Provider + Encounter Details Date Type Department Care Team (Latest Contact Info) Description 03/14/2023 Orders Only [facility] Scanning, Provider Social History Tobacco Use Types Packs/Day Years Used Date Smoking Tobacco: Never Smokeless Tobacco: Never Alcohol Use Standard Drinks/Week Comments Never 0 (1 standard drink = 0.6 oz pur e alcohol) AUDIT-C Answer Date Recorded Q1: How often do you have a drink containing alc ohol? 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 Gender Identity Female 06/19/2020 1:01 PM CDT Sexual Orientation Straight 04/20/2019 8: 05 PM CDT documented as of this encounter Plan of Treatment Not on file documented as of this encounter Procedures Procedure Name Priority Date/Time Associated Diagnosis Comments SCAN - LABS 03/14/2023 documented in this encounter Results * SCAN - LABS (03/14/2023) us Provider Scanning Edited Result - Final documented in this encounter Visit Diagnoses Not on filedocumented in this encounter Care Teams Marketing Support Coordinator Relationship Specialty Start Date End Date Reggie Padilla MD [address] [place] [address] PCP - General Internal Medicine 05/02/22 05/05/23 [facility] [address] [place] [address] PCP - General 05/06/23 08/08/24 Alisha Moe DO [address] [facility] [address] [address] PCP - General Family Medicine 08/09/24 10/11/24 Garrett Peirre MD [address] [facility] [address] [place] [address] PCP - General Internal Medicine 10/12/24 03/08/25 Reggie Perry MD [address] [place] [address] PCP - General Internal Medicine 03/09/25 Chas Osuna MD [address] [facility] [address] [place] [address] Consulting Physician Cardiology 08/09/24 Frank Alvarado MD [address] [place] [address] Consulting Physician Nephrology 08/09/24 Margaret Brewster MD [address] [place] [address] Referring Physician Gastroenterology 08/09/24 documented as of this encounter
--- OUTSIDE RECORDS SUMMARY | 2025-05-11 09:44 | XMS_ITS | Encounter Summary ---
Author Organization [facility] Address [address] [place] [address] Phone Care Team Providers Care Calculus Professor Name Role Phone Melvi Coffey MD Primary Care Provider Kayla Hall MD Primary Care Provider [phone] Melvi Coffey MD Primary Care Provider Navarro Richardson DO Primary Care Provider [phone] Unknown, Notinfile Primary Care Provider Unavail able Navarro Richardson DO Primary Care Provider [phone] Miscellaneous, Not In File Primary Care Provider Unavailable Miscellaneous, Not In File Primary Care Provider Unavailable [facility] Primary Care Provider [phone] Reggie Padilla MD Primary Care Provider [phone] [facility] Primary Care Provider [phone] Chas Osuna MD Unavailable [phone] Frank Alvarado MD Unavailabl e Margaret Brewster MD Unavailable [phone] Alisha Moe DO Primary Care Provider [phone] Garrett Pierre MD Primary Care Provi sherie Reggie Perry MD Primary Care Provider + Encounter Details Date Type Department Care Team (Late st Contact Info) Description 1955 Orders Only [facility] Scanning, Provider Social History Tobacco Use Types Packs/Day Years Used Date Smoking Tobacco: Never Assessed Comments Unknown Sex and Gender Information Value Date Recorded Sex Assigned at Not on file 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 Gender Identity Female 06/19/2020 1:01 PM CDT Sexual Orientation Straight 04/20/2019 8: 05 PM CDT documented as of this encounter Plan of Treatment Not on file documented as of this encounter Procedures Procedure Name Priority Date/Time Associated Diagnosis Comments SCAN - RADIOLOGY/IMAGING 1955 documented in this encounter Results * SCAN - RADIOLOGY/IMAGING (1955) Anatomical Region Laterality Modality Other us Provider Scanning Final Result documented in this encounter Visit Diagnoses Not on filedocumented in this encounter Care Teams Calculus Professor Relationship Specialty Start Date End Date Melvi Coffey MD [address] [place] [address] PCP - General 07/07/17 11/09/17 [place] [address] [facility] [address] [email or web address], [place] [address] PCP - General 11/10/17 11/24/17 Melvi Coffey MD [address] [place] [address] PCP - General 11/25/17 03/11/21 [place] [address] [facility] [address] [email or web address] [address] PCP - General Family Medicine 03/12/21 03/14/21 Unknown, Notinfile PCP - General 03/15/21 05/27/21 Navarro Richardson Maya [address] [place] [address] PCP - General Family Medicine 05/28/21 10/09/21 Miscellaneous, Not In File PCP - General 10/10/21 2 Miscellaneous, Not In File PCP - General 10/11/21 [facility] [address] [place] [address] PCP - General 01/22/22 05/01/22 Reggie Padilla MD [address] [place] [address] PCP - General Internal Medicine 05/02/22 05/05/23 [facility] [address] [place] [address] PCP - General 05/06/23 08/08/24 Alisha Moe DO [address] [facility] [address] [address] PCP - General Family Medicine 08/09/24 10/11/24 Garrett Pierre MD [address] [place] [address] PCP - General Internal Medicine 10/12/24 03/08/25 Reggie Perry MD [address] [place] [address] PCP - General Internal Medicine 03/09/25 Chas Osuna MD [address] [place] [address] Consulting Physician Cardiology 08/09/24 Frank Alvarado MD [address] [place] [address] Consulting Physician Nephrology 08/09/24 Margaret Brewster MD [address] [place] [address] Referring Physician Gastroenterology 08/09/24 documented as of this encounter
--- OUTSIDE RECORDS SUMMARY | 2025-05-11 09:44 | XMS_ITS | Encounter Summary ---
Author Organization [facility] Address [address] [place] [address] Phone Care Team Providers Care Glue Jointer Operator Name Role Phone Miscellaneous, Not In File Primary Care Provider Unavailable [facility] Primary Care Provider [phone] Reggie Padilla MD Primary Care Provider [phone] [facility] Primary Care Provider [phone] Chas Osuna MD Unavailable [phone] Frank Alvarado MD Unavailabl e Margaret Brewster MD Unavailable [phone] Alisha Moe DO Primary Care Provider [phone] Garrett Pierre MD Primary Care Provi sherie Reggie Perry MD Primary Care Provider + Encounter Details Date Type Department Care Team (Late st Contact Info) Description 10/29/2021 Orders Only [facility] Scanning, Provider [...] on file 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 Gender Identity Female 06/19/2020 1:01 PM CDT Sexual Orientation Straight 04/20/2019 8: 05 PM CDT documented as of this encounter Plan of Treatment Not on file documented as of this encounter Procedures Procedure Name Priority Date/Time Associated Diagnosis Comments SCAN - LABS 10/29/2021 documented in this encounter Results * SCAN - LABS (10/29/2021) us Provider Scanning Final Result documented in this encounter Visit Diagnoses Not on filedocumented in this encounter Care Teams Glue Jointer Operator Relationship Specialty Start Date End Date Miscellaneous, Not In File PCP - General 10/11/21 [facility] [address] [place] [address] PCP - General 01/22/22 05/01/22 Reggie Padilla MD [address] [place] [address] PCP - General Internal Medicine 05/02/22 05/05/23 [facility] [address] [place] [address] PCP - General 05/06/23 08/08/24 Alisha Moe DO [address] [facility] [address] [place] [address] PCP - General Family Medicine 08/09/24 10/11/24 Garrett Pierre MD [address] [facility] [place] [address] PCP - General Internal Medicine 10/12/24 03/08/25 Reggie Perry MD [address] [place] [address] PCP - General Internal Medicine 03/09/25 Chas Osuna MD [address] [facility] [address] [place] [address] Consulting Physician Cardiology 08/09/24 Frank Alvarado MD [address] [place] [address] Consulting Physician Nephrology 08/09/24 Margaret Brewster MD [address] [place] [address] Referring Physician Gastroenterology 08/09/24 documented as of this encounter
--- OUTSIDE RECORDS SUMMARY | 2025-05-11 09:44 | XMS_ITS | Encounter Summary ---
Author Organization [facility] Address [address] [place] [address] Phone Care Team Providers Care Rigging Up Worker Name Role Phone [facility] Primary Care Provider [phone] Chas Osuna MD Unavailable [phone] Frank Alvarado MD Unavailabl e Margaret Brewster MD Unavailable [phone] Alisha Moe DO Primary Care Provider [phone] Garrett Pierre MD Primary Care Provi sherie Reggie Perry MD Primary Care Provider + Encounter Details Date Type Department Care Team (Latest Contact Info) Description 07/15/2023 Orders Only [facility] Scanning, Provider [...] on file 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 Gender Identity Female 06/19/2020 1:01 PM CDT Sexual Orientation Straight 04/20/2019 8: 05 PM CDT documented as of this encounter Plan of Treatment Not on file documented as of this encounter Procedures Procedure Name Priority Date/Time Associated Diagnosis Comments SCAN - LABS 07/15/2023 documented in this encounter Results * SCAN - LABS (07/15/2023) us Provider Scanning Final Result documented in this encounter Visit Diagnoses Not on filedocumented in this encounter Care Teams Rigging Up Worker Relationship Specialty Start Date End Date [facility] [address] [place] [address] PCP - General 05/06/23 08/08/24 Alisha Moe DO [address] [facility] [address] [place] [address] PCP - General Family Medicine 08/09/24 10/11/24 Garrett Pierre MD [address] [facility] [address] [place] [address] PCP - General Internal Medicine 10/12/24 03/08/25 Reggie Perry MD [address] [place] [address] PCP - General Internal Medicine 03/09/25 Cahs Osuna MD [address] [facility] [address] [place] [address] Consulting Physician Cardiology 08/09/24 Frank Alvarado MD [address] [place] [address] Consulting Physician Nephrology 08/09/24 Margaret Brewster MD [address] [place] [address] Referring Physician Gastroenterology 08/09/24 documented as of this encounter
--- OUTSIDE RECORDS SUMMARY | 2025-05-11 09:44 | XMS_ITS | Encounter Summary ---
Author Organization [facility] Address [address] [place] [address] Phone Care Team Providers Care Vending Service Technician Name Role Phone Melvi Coffey MD Primary Care Provider Richardson Navarro Trejo DO Primary Care Provider [phone] Unknown, Notinfile Primary Care Provider Unavail able Dylan Navarro Trejo DO Primary Care Provider [phone] Miscellaneous, Not In File Primary Care Provider Unavailable Miscellaneous, Not In File Primary Care Provider Unavailable [facility] Primary Care Provider [phone] Reggie Padilla MD Primary Care Provider +- [phone] [facility] Primary Care Provider +- [phone] Chas Osuna MD Unavailable [phone] Frank Alvarado MD Unavailabl e Margaret Brewster MD Unavailable + [phone] Alisha Moe DO Primary Care Provider + [phone] Garrett Pierre MD Primary Care Provi sherie Reggie Perry MD Primary Care Provider + Encounter Details Date Type Department Care Team (Late st Contact Info) Description 03/07/2021 Orders Only [facility] Scanning, Provider Social History Tobacco Use Types Packs/Day Years Used Date Smoking Tobacco: Never Smokeless Tobacco: Never Alcohol Use Standard Drinks/Week Comments Never 0 (1 standard drink = 0.6 oz pur e alcohol) AUDIT-C Answer Date Recorded Frequency of Alcohol Consumption Never 04/26/2019 Average Number of Drinks Not on file 019 Frequency of Binge Drinking Not on file 04/02 Comments No Sex and Gender Information Value Date Recorded Sex Assigned at Not on file 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 Gender Identity Female 06/19/2020 1:01 PM CDT Sexual Orientation Straight 04/20/2019 8: 05 PM CDT documented as of this encounter Plan of Treatment Not on file documented as of this encounter Procedures Procedure Name Priority Date/Time Associated Diagnosis Comments SCAN - RADIOLOGY/IMAGING 03/07/2021 documented in this encounter Results * SCAN - RADIOLOGY/IMAGING (03/07/2021) Anatomical Region Laterality Modality Other us Provider Scanning Final Result documented in this encounter Visit Diagnoses Not on filedocumented in this encounter Care Teams Vending Service Technician Relationship Specialty Start Date End Date Melvi Coffey MD [address] [place], [place] [address] PCP - General 11/25/17 03/11/21 Navarro Richardson DO [address] [place] [address] PCP - General Family Medicine 03/12/21 03/14/21 Unknown, Notinfile PCP - General 03/15/21 05/27/21 Navarro Richardson DO [address] [place] [address] PCP - General Family Medicine 05/28/21 10/09/21 Miscellaneous, Not In File PCP - General 10/10/21 2 Miscellaneous, Not In File PCP - General 10/11/21 [facility] [address] [place] [address] PCP - General 01/22/22 05/01/22 Reggie Padilla MD [address] [place] [address] PCP - General Internal Medicine 05/02/22 05/05/23 [facility] [address] [place] [address] PCP - General 05/06/23 08/08/24 Alisha Moe DO [address] [address] PCP - General Family Medicine 08/09/24 10/11/24 Garrett Pierre MD [address] [facility] [address] [place] [address] PCP - General Internal Medicine 10/12/24 03/08/25 Reggie Perry MD [address] [place] [address] PCP - General Internal Medicine 03/09/25 Chas Osuna MD [address] [facility] 2300 [place] [address] Consulting Physician Cardiology 08/09/24 Frank Alvarado MD [address] [place] [address] Consulting Physician Nephrology 08/09/24 Margaret Brewster MD [address] [place] [address] Referring Physician Gastroenterology 08/09/24 documented as of this encounter
--- OUTSIDE RECORDS SUMMARY | 2025-05-11 09:44 | XMS_ITS | Encounter Summary ---
Author Organization [facility] Address [address] [place] [address] Phone Care Team Providers Care Back Joiner Name Role Phone Melvi Coffey MD Primary Care Provider Richardson Navarro Trejo DO Primary Care Provider [phone] Unknown, Notinfile Primary Care Provider Unavail able Dylan Navarro Trejo DO Primary Care Provider [phone] Miscellaneous, Not In File Primary Care Provider Unavailable Miscellaneous, Not In File Primary Care Provider Unavailable [facility] Primary Care Provider [phone] Reggie Padilla MD Primary Care Provider +- [phone] [facility] Primary Care Provider +- [phone] Chas Osuna MD Unavailable [phone] Frank Alvarado MD Unavailabl e Margaret Brewster MD Unavailable + [phone] Alisha Moe DO Primary Care Provider + [phone] Garrett Pierre MD Primary Care Provi sherie Reggie Perry MD Primary Care Provider + Encounter Details Date Type Department Care Team (Latest Contact Info) Description 03/01/2021 Orders Only [facility] Scanning, Provider Social History Tobacco Use Types [...] on file 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 Gender Identity Female 06/19/2020 1:01 PM CDT Sexual Orientation Straight 04/20/2019 8: 05 PM CDT documented as of this encounter Plan of Treatment Not on file documented as of this encounter Procedures Procedure Name Priority Date/Time Associated Diagnosis Comments CARDIOLOGY DOCUMENT SCAN 03/01/2021 documented in this encounter Results * SCAN - CARDIOLOGY (03/01/2021) Anatomical Region Laterality Modality Other us Provider Scanning CV CARDIAC SERVICES PROCEDURES Final Result documented in this encounter Visit Diagnoses Not on filedocumented in this encounter Care Teams Back Joiner Relationship Specialty Start Date End Date Melvi Coffey MD [address] [place], [place] [address] PCP - General 11/25/17 03/11/21 Navarro Richardson DO [address] [place], [place] [address] PCP - General Family Medicine 03/12/21 03/14/21 Unknown, Notinfile PCP - General 03/15/21 05/27/21 Navarro Richardson DO [address] [place], [place] [address] PCP - General Family Medicine 05/28/21 10/09/21 Miscellaneous, Not In File PCP - General 10/10/21 2 Miscellaneous, Not In File PCP - General 10/11/21 [facility] [address] [place] [address] PCP - General 01/22/22 05/01/22 Reggie Padilla MD [address] [place] [address] PCP - General Internal Medicine 05/02/22 05/05/23 [facility] [address] [place] [address] PCP - General 05/06/23 08/08/24 Alisha Moe DO [address] [address] PCP - General Family Medicine 08/09/24 10/11/24 Garrett Pierre MD [address] [facility] [address] [place] [address] PCP - General Internal Medicine 10/12/24 03/08/25 Reggie Perry MD [address] [place] [address] PCP - General Internal Medicine 03/09/25 Chas Osuna MD [address] [facility] [address] [place] [address] Consulting Physician Cardiology 08/09/24 Frank Alvarado MD [address] [place] [address] Consulting Physician Nephrology 08/09/24 Margaret Brewster MD [address] [place] [address] Referring Physician Gastroenterology 08/09/24 documented as of this encounter
--- OUTSIDE RECORDS SUMMARY | 2025-05-11 09:44 | XMS_ITS | Encounter Summary ---
Author Organization [facility] Address [address] [place] [address] Phone Care Team Providers Care Extractions Technologist Name Role Phone Melvi Coffey MD Primary Care Provider Richardson Navarro Trejo DO Primary Care Provider [phone] Unknown, Notinfile Primary Care Provider Unavail able Dylan Navarro Trejo DO Primary Care Provider [phone] Miscellaneous, Not In File Primary Care Provider Unavailable Miscellaneous, Not In File Primary Care Provider Unavailable [facility] Primary Care Provider [phone] Reggie Padilla MD Primary Care Provider +- [phone] [facility] Primary Care Provider +- [phone] Chas Osuna MD Unavailable [phone] Frank Alvarado MD Unavailabl e Margaret Brewster MD Unavailable + [phone] Alisha Moe DO Primary Care Provider + [phone] Garrett Pierre MD Primary Care Provi sherie Reggie Perry MD Primary Care Provider + Encounter Details Date Type Department Care Team (Latest Contact Info) Description 03/07/2021 Orders Only [facility] Scanning, Provider [...] on file 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 Gender Identity Female 06/19/2020 1:01 PM CDT Sexual Orientation Straight 04/20/2019 8: 05 PM CDT documented as of this encounter Plan of Treatment Not on file documented as of this encounter Procedures Procedure Name Priority Date/Time Associated Diagnosis Comments SCAN - RADIOLOGY/IMAGING 03/07/2021 documented in this encounter Results * SCAN - RADIOLOGY/IMAGING (03/07/2021) Anatomical Region Laterality Modality Other us Provider Scanning Edited Result - Final documented in this encounter Visit Diagnoses Not on filedocumented in this encounter Care Teams Extractions Technologist Relationship Specialty Start Date End Date Melvi Coffey MD [address] [place], [place] [address] PCP - General 11/25/17 03/11/21 Navarro Richardson DO [address] [place] [address] PCP - General Family Medicine 03/12/21 03/14/21 Unknown, Notinfile PCP - General 03/15/21 05/27/21 Navarro Richardson DO [address] [place] [address] PCP - General Family Medicine 05/28/21 10/09/21 Miscellaneous, Not In File PCP - General 10/10/21 2 Miscellaneous, Not In File PCP - General 10/11/21 [facility] [address] [place] [address] PCP - General 01/22/22 05/01/22 Reggie Padilla MD [address] [place] [address] PCP - General Internal Medicine 05/02/22 05/05/23 [facility] [address] [place] [address] PCP - General 05/06/23 08/08/24 Alisha Moe DO [address] [address] PCP - General Family Medicine 08/09/24 10/11/24 Garrett Pierre MD [address] [facility] [address] [place] [address] PCP - General Internal Medicine 10/12/24 03/08/25 Reggie Perry MD [address] [place] [address] PCP - General Internal Medicine 03/09/25 Chas Osuna MD [address] [facility] [address] [place] [address] Consulting Physician Cardiology 08/09/24 Frank Alvarado MD [address] [place] [address] Consulting Physician Nephrology 08/09/24 Margaret Brewster MD [address] [place] [address] Referring Physician Gastroenterology 08/09/24 documented as of this encounter
--- OUTSIDE RECORDS SUMMARY | 2025-05-11 09:44 | XMS_ITS | Encounter Summary ---
Author Organization [facility] Address [address] [place] [address] Phone Care Team Providers Care Overlay Plastician Name Role Phone Unknown, Notinfile Primary Care Provider Unavail able Dylan Navarro Trejo DO Primary Care Provider [phone] Miscellaneous, Not In File Primary Care Provider Unavailable Miscellaneous, Not In File Primary Care Provider Unavailable [facility] Primary Care Provider [phone] Reggie Padilla MD Primary Care Provider +[phone] [facility] Primary Care Provider +[phone]- [phone] Chas Osuna MD Unavailable [phone] Frank Alvarado MD Unavailabl e Margaret Brewster MD Unavailable +[phone] Alisha Moe DO Primary Care Provider +[phone]- [phone] Garrett Pierre MD Primary Care Provi sherie Reggie Perry MD Primary Care Provider + Encounter Details Date Type Department Care Team (Latest Contact Info) Description 04/02/2021 Orders Only [facility] Scanning, Provider [...] on file 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 Gender Identity Female 06/19/2020 1:01 PM CDT Sexual Orientation Straight 04/20/2019 8: 05 PM CDT documented as of this encounter Plan of Treatment Not on file documented as of this encounter Procedures Procedure Name Priority Date/Time Associated Diagnosis Comments SCAN - LABS 04/02/2021 documented in this encounter Results * SCAN - LABS (04/02/2021) us Provider Scanning Final Result documented in this encounter Visit Diagnoses Not on filedocumented in this encounter Care Teams Overlay Plastician Relationship Specialty Start Date End Date Unknown, Notinfile PCP - General 03/15/21 05/27/21 Navarro Richardson DO [address] [place], [place] [address] PCP - General Family Medicine 05/28/21 10/09/21 Miscellaneous, Not In File PCP - General 10/10/21 2 Miscellaneous, Not In File PCP - General 10/11/21 [facility] [address] [place], [place] [address] PCP - General 01/22/22 05/01/22 Reggie Padilla MD [address] [place] [address] PCP - General Internal Medicine 05/02/22 05/05/23 [facility] [address] [place] [address] PCP - General 05/06/23 08/08/24 Alisha Moe DO [address] [facility] [address] [place] [address] PCP - General Family Medicine 08/09/24 10/11/24 Garrett Pierre MD [address] [facility] [address] [place] [address] PCP - General Internal Medicine 10/12/24 03/08/25 Reggie Perry MD [address] [place] [address] PCP - General Internal Medicine 03/09/25 Chas Osuna MD [address] [facility] [address] [place] [address] Consulting Physician Cardiology 08/09/24 Frank Alvarado MD [address] [place] [address] Consulting Physician Nephrology 08/09/24 Margaret Brewster MD [address] [place] [address] Referring Physician Gastroenterology 08/09/24 documented as of this encounter
--- OUTSIDE RECORDS SUMMARY | 2025-05-11 09:44 | XMS_ITS | Encounter Summary ---
Author Organization [facility] Address [address] [place] [address] Phone Care Team Providers Care Steamer Tender Name Role Phone Melvi Coffey MD Primary Care Provider Richardson Navarro Trejo DO Primary Care Provider [phone] Unknown, Notinfile Primary Care Provider Unavail able Dylan Navarro Trejo DO Primary Care Provider [phone] Miscellaneous, Not In File Primary Care Provider Unavailable Miscellaneous, Not In File Primary Care Provider Unavailable [facility] Primary Care Provider [phone] Reggie Padilla MD Primary Care Provider +- [phone] [facility] Primary Care Provider +- [phone] Chas Osuna MD Unavailable [phone] Frank Alvarado MD Unavailabl e Margaret Brewster MD Unavailable + [phone] Alisha Moe DO Primary Care Provider + [phone] Garrett Pierre MD Primary Care Provi sherie Reggie Perry MD Primary Care Provider + Encounter Details Date Type Department Care Team (Latest Contact Info) Description 08/08/2020 Orders Only [facility] Scanning, Provider [...] on file 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 Gender Identity Female 06/19/2020 1:01 PM CDT Sexual Orientation Straight 04/20/2019 8: 05 PM CDT documented as of this encounter Plan of Treatment Not on file documented as of this encounter Procedures Procedure Name Priority Date/Time Associated Diagnosis Comments SCAN - RADIOLOGY/IMAGING 08/08/2020 documented in this encounter Results * SCAN - RADIOLOGY/IMAGING (08/08/2020) Anatomical Region Laterality Modality Other us Provider Scanning Edited Result - Final documented in this encounter Visit Diagnoses Not on filedocumented in this encounter Care Teams Steamer Tender Relationship Specialty Start Date End Date Melvi Coffey MD [address] [place], [place] [address] PCP - General 11/25/17 03/11/21 Navarro Richardson DO [address] [place], [place] [address] PCP - General Family Medicine 03/12/21 03/14/21 Unknown, Notinfile PCP - General 03/15/21 05/27/21 Navarro Richardson DO [address] [place], [place] [address] PCP - General Family Medicine 05/28/21 10/09/21 Miscellaneous, Not In File PCP - General 10/10/21 2 Miscellaneous, Not In File PCP - General 10/11/21 [facility] [address] [place] [address] PCP - General 01/22/22 05/01/22 Reggie Padilla MD [address] [place] [address] PCP - General Internal Medicine 05/02/22 05/05/23 [facility] [address] [place] [address] PCP - General 05/06/23 08/08/24 Alisha Moe DO [address] [address] PCP - General Family Medicine 08/09/24 10/11/24 Garrett Pierre MD [address] [facility] [address] [place] [address] PCP - General Internal Medicine 10/12/24 03/08/25 Reggie Perry MD [address] [place] [address] PCP - General Internal Medicine 03/09/25 Chas Osuna MD [address] [facility] [address] [place] [address] Consulting Physician Cardiology 08/09/24 Frank Alvarado MD [address] [place] [address] Consulting Physician Nephrology 08/09/24 Margaret Brewster MD [address] [place] [address] Referring Physician Gastroenterology 08/09/24 documented as of this encounter
--- OUTSIDE RECORDS SUMMARY | 2025-05-11 09:44 | XMS_ITS | Encounter Summary ---
Author Organization [facility] Address [address] [place] [address] Phone Care Team Providers Care Remediation Bioanalytics Consultant Name Role Phone Melvi Coffey MD Primary Care Provider Richardson Navarro Trejo DO Primary Care Provider [phone] Unknown, Notinfile Primary Care Provider Unavail able Dylan Navarro Trejo DO Primary Care Provider [phone] Miscellaneous, Not In File Primary Care Provider Unavailable Miscellaneous, Not In File Primary Care Provider Unavailable [facility] Primary Care Provider [phone] Reggie Padilla MD Primary Care Provider +- [phone] [facility] Primary Care Provider +- [phone] Chas Osuna MD Unavailable [phone] Frank Alvarado MD Unavailabl e Margaret Brewster MD Unavailable + [phone] Alisha Moe DO Primary Care Provider + [phone] Garrett Pierre MD Primary Care Provi sherie Reggie Perry MD Primary Care Provider + Encounter Details Date Type Department Care Team (Late st Contact Info) Description 03/06/2021 Orders Only [facility] Scanning, Provider Social [...] on file 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 Gender Identity Female 06/19/2020 1:01 PM CDT Sexual Orientation Straight 04/20/2019 8: 05 PM CDT documented as of this encounter Plan of Treatment Not on file documented as of this encounter Procedures Procedure Name Priority Date/Time Associated Diagnosis Comments SCAN - LABS 03/06/2021 documented in this encounter Results * SCAN - LABS (03/06/2021) us Provider Scanning Final Result documented in this encounter Visit Diagnoses Not on filedocumented in this encounter Care Teams Remediation Bioanalytics Consultant Relationship Specialty Start Date End Date Melvi Coffey MD [address] [place] [address] PCP - General 11/25/17 03/11/21 Navarro Richardson DO [address] [place] [address] PCP - General Family Medicine 03/12/21 03/14/21 Unknown, Notinfile PCP - General 03/15/21 05/27/21 Navarro Richardson DO [address] [place], [place] [address] PCP - General Family Medicine 05/28/21 10/09/21 Miscellaneous, Not In File PCP - General 10/10/21 2 Miscellaneous, Not In File PCP - General 10/11/21 [facility] [address] [place] [address] PCP - General 01/22/22 05/01/22 Reggie Padilla MD [address] [place] [address] PCP - General Internal Medicine 05/02/22 05/05/23 [facility] [address] [place] [address] PCP - General 05/06/23 08/08/24 Alisha Moe DO [address] [address] PCP - General Family Medicine 08/09/24 10/11/24 Garrett Pierre MD 969 [facility] [address] [place] [address] PCP - General Internal Medicine 10/12/24 03/08/25 Reggie Perry MD [address] [place] [address] PCP - General Internal Medicine 03/09/25 Chas Osuna MD [address] [facility] [address] [place] [address] Consulting Physician Cardiology 08/09/24 Frank Alvarado MD [address] [place] [address] Consulting Physician Nephrology 08/09/24 Margaret Brewster MD [address] [place] [address] Referring Physician Gastroenterology 08/09/24 documented as of this encounter
--- OUTSIDE RECORDS SUMMARY | 2025-05-11 09:44 | XMS_ITS | Encounter Summary ---
Author Organization [facility] Address [address] [place] [address] Phone Care Team Providers Care Sales Teacher Name Role Phone Reggie Padilla MD Primary Care Provider [phone] [facility] Primary Care Provider Chas Osuna MD Unavailable [phone] Frank Alvarado MD Unavailabl e Margaret Brewster MD Unavailable [phone] Alisha Moe DO Primary Care Provider +[phone]- [phone] Garrett Pierre MD Primary Care Provi sherie Reggie Perry MD Primary Care Provider + Encounter Details Date Type Department Care Team (Latest Contact Info) Description 08/09/2022 Orders Only [facility] Scanning, Provider [...] on file 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 Gender Identity Female 06/19/2020 1:01 PM CDT Sexual Orientation Straight 04/20/2019 8: 05 PM CDT documented as of this encounter Plan of Treatment Not on file documented as of this encounter Procedures Procedure Name Priority Date/Time Associated Diagnosis Comments SCAN - LABS 08/09/2022 documented in this encounter Results * SCAN - LABS (08/09/2022) us Provider Scanning Final Result documented in this encounter Visit Diagnoses Not on filedocumented in this encounter Care Teams Sales Teacher Relationship Specialty Start Date End Date Reggie Padilla MD [address] [place] [address] PCP - General Internal Medicine 05/02/22 05/05/23 [facility] [address] [place] [address] PCP - General 05/06/23 08/08/24 Alisha Moe DO [address] [facility] [address] [address] PCP - General Family Medicine 08/09/24 10/11/24 Garrett Pierre MD [address] [facility] [address] [place] [address] PCP - General Internal Medicine 10/12/24 03/08/25 Reggie Perry MD [address] [place] [address] PCP - General Internal Medicine 03/09/25 Chas Osuna MD [address] [facility] [place] [address] Consulting Physician Cardiology 08/09/24 Frank Alvarado MD [address] [place] [address] Consulting Physician Nephrology 08/09/24 Margaret Brewster MD [address] [place] [address] Referring Physician Gastroenterology 08/09/24 documented as of this encounter
--- OUTSIDE RECORDS SUMMARY | 2025-05-11 09:44 | XMS_ITS | Encounter Summary ---
Author Organization [facility] Address [address] [place] [address] Phone Care Team Providers Care Herbologist Name Role Phone [facility] Primary Care Provider Chas Osuna MD Unavailable [phone] Frank Alvarado MD Unavailabl e Margaret Brewster MD Unavailable [phone] Alisha Moe DO Primary Care Provider [phone] Garrett Pierre MD Primary Care Provi sherie Reggie Perry MD Primary Care Provider + Encounter Details Date Type Department Care Team (Latest Contact Info) Description 05/16/2023 Orders Only [facility] Katy Hale, CHICHI [address] [facility] [address] [place] [address] Social History Tobacco Use Types Packs/Day Years [...] on file 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 Gender Identity Female 06/19/2020 1:01 PM CDT Sexual Orientation Straight 04/20/2019 8: 05 PM CDT documented as of this encounter Plan of Treatment Not on file documented as of this encounter Procedures Procedure Name Priority Date/Time Associated Diagnosis Comments SCAN - LABS 05/16/2023 documented in this encounter Results * SCAN - LABS (05/16/2023) us Katy Hale RN Final Result documented in this encounter Visit Diagnoses Not on filedocumented in this encounter Care Teams Herbologist Relationship Specialty Start Date End Date [facility] [address] [place] [address] PCP - General 05/06/23 08/08/24 Alisha Moe DO [address] [address] PCP - General Family Medicine 08/09/24 10/11/24 Garrett Pierre MD [address] [place] [address] PCP - General Internal Medicine 10/12/24 03/08/25 Reggie Perry MD [address] [place] [address] PCP - General Internal Medicine 03/09/25 Chas Osuna MD [address] [place] [address] Consulting Physician Cardiology 08/09/24 Frank Alvarado MD [address] [place] [address] Consulting Physician Nephrology 08/09/24 Margaret Brewster MD [address] [place] [address] Referring Physician Gastroenterology 08/09/24 documented as of this encounter
--- OUTSIDE RECORDS SUMMARY | 2025-05-11 09:44 | XMS_ITS | Encounter Summary ---
Author Organization [facility] Address [address] [place] [address] Phone Care Team Providers Care Foam Fabricator Name Role Phone Melvi Coffey MD Primary Care Provider Richardson Navarro Trejo DO Primary Care Provider [phone] Unknown, Notinfile Primary Care Provider Unavail able Dylan Navarro Trejo DO Primary Care Provider [phone] Miscellaneous, Not In File Primary Care Provider Unavailable Miscellaneous, Not In File Primary Care Provider Unavailable [facility] Primary Care Provider [phone] Reggie Padilla MD Primary Care Provider [phone] [facility] Primary Care Provider [phone] Chas Osuna MD Unavailable [phone] Frank Alvarado MD Unavailabl e Margaret Brewster MD Unavailable + [phone] Alisha Moe DO Primary Care Provider + [phone] Garrett Pierre MD Primary Care Provi sherie Reggie Perry MD Primary Care Provider + Encounter Details Date Type Department Care Team (Late st Contact Info) Description 08/08/2020 Orders Only [facility] Scanning, Provider [...] on file 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 Gender Identity Female 06/19/2020 1:01 [...] on filedocumented in this encounter Care Teams Foam Fabricator Relationship Specialty Start Date End Date Melvi Coffey MD [address] [place] [address] PCP - General 11/25/17 03/11/21 Navarro Richardson DO [address] [place] [address] PCP - General Family Medicine 03/12/21 03/14/21 Unknown, Notinfile PCP - General 03/15/21 05/27/21 Navarro Richardson DO [address] [place] [address] PCP - General Family Medicine 05/28/21 10/09/21 Miscellaneous, Not In File PCP - General 10/10/21 2 Miscellaneous, Not In File PCP - General 10/11/21 [facility] [address] [place] [address] PCP - General 01/22/22 05/01/22 Reggie Padilla MD [address] [place] [address] PCP - General Internal Medicine 05/02/22 05/05/23 [facility] [address] [place] [address] PCP - General 05/06/23 08/08/24 Alisha Moe DO [address] [address] PCP - General Family Medicine 08/09/24 10/11/24 Garrett Pierre MD [address] [facility] [address] [place] [address] PCP - General Internal Medicine 10/12/24 03/08/25 Reggie Perry MD [address] [place] [address] PCP - General Internal Medicine 03/09/25 Chas Osuna MD [address] [facility] [address] [place] [address] Consulting Physician Cardiology 08/09/24 Frank Alvarado MD [address] [place] [address] Consulting Physician Nephrology 08/09/24 Margaret Brewster MD [address] [place] [address] Referring Physician Gastroenterology 08/09/24 documented as of this encounter
--- OUTSIDE RECORDS SUMMARY | 2025-05-11 09:44 | XMS_ITS | Clinical Summary ---
Author Organization [facility] Medical [facility] [address] [facility] [place] [address] Care Team Providers Care Spray Dry Operator Name Role Phone Chas Osuna MD Unavailable Frank Alvarado MD Unavailabl e Margaret Brewster MD Unavailable [phone] Reggie Perry MD Primary Care Provider + Allergies Active Allergy Reactions Criticality Noted Date Comments Atorvastatin Joint pain,Fatigue Low 02/27/2024 Sulfamethoxazole-Trimet hoprim Swollen tongue High 05/20/2019 Morphine Headache,Nausea & Vomiting,Nausea And Vomiting,Stomach upset Low 07/04/2023 Penicillins Anaphylaxis,Other (See comments) High 11/01/2008 Promethazine Other (See comments) Low 07/28/2018 Pt states stroke like symptoms /phenergan Medications esomeprazole DR (NexIUM) 40 mg capsule pt 20mg states nightly Active cholecalciferol (VITAMIN D-3) 1,000 unit capsule Take 1 capsule (1,000 Units total) by mouth every morning 02/03/20 13 Active levothyroxine (SYNTHROID) 88 mcg tablet crnp before breakfast 01/24/20 Active Climara 0.0375 mg/[address] 1 patch on the skin once a week 03/07/20 Active azelastine (ASTELIN) 137 mcg (0.1 %) nasal spray Administer 1 spray into each nostril 2 (two) times a day Use in each nostril as directed 30 mL 3 11/20/19 25 Active evolocumab (Repatha SureClick) 140 mg/mL pen injector ADMINISTER 1 ML(140 MG) UNDER THE SKIN EVERY 14 DAYS 6 mL 01/20/20 25 Active diclofenac sodium (VOLTAREN) 1 % gel Apply 4 g topically 4 (four) times a day 200 g 02/02/20 25 026 Active aspirin 81 mg enteric coated tablet TAKE 1 TABLET BY MOUTH DAILY 90 tablet 3 02/10/20 25 Active irbesartan (AVAPRO) 300 mg tabletIndication s:Focal segmental glomeruloscleros is,Essential hypertension Take 1 tablet (300 mg total) by mouth daily 90 tablet 2 02/25/20 25 026 Active alpha lipoic acid 200 mg capsule Take 200 mg by mouth daily Active fluticasone propionate (FLONASE) 50 mcg/actuation nasal sprayIndications :Non-seasonal allergic rhinitis due to pollen Administer 2 sprays into each nostril daily 5 each 5 03/09/20 25 Active spironolactone (ALDACTONE) 25 mg tablet Take 1 tablet (25 mg total) by mouth daily 30 tablet 11 03/29/20 25 026 Active buPROPion (Wellbutrin) 100 mg tabletIndication s:Anxiety with Depression Take 1 tablet (100 mg total) by mouth 2 (two) times a day 180 tablet 1 04/07/20 25 Active icosapent ethyL (VASCEPA) 1 gram capsule TAKE 2 CAPSULES(2 GRAMS) BY MOUTH TWICE DAILY 360 capsule 3 05/01/20 25 Active icosapent ethyL (VASCEPA) 1 gram capsule Take 2 capsules (2 g total) by mouth 2 (two) times a day 360 capsule 3 05/12/20 24 025 Discontinued Active Problems Problem Noted Date Diagnosed Date Non-seasonal allergic rhinitis due to pollen 05/2025 Assessment & Plan (03/09/2025 11:05 AM CDT): Will try flonase 2 sprays each nostril once a day Statin myopathy 03/07/2025 Assessment & Plan (03/07/2025 7:31 AM CDT): Does not tolerate statins secondary to myalgias Greater trochanteric pain syndrome 02/01/2025 Postural dizziness with presyncope 12/08/2024 Assessment & Plan (12/08/2024 3:43 PM CDT): Work-up in ED 11/17/2023 was unremarkable. Upon obtaining further history this occurred amidst a high stress time so I suspect this was a panic attack. She also experienced globus and difficulty moving air transiently which she understandably describes as a traumatic experience. Add duloxetine as otherwise noted Globus sensation 12/08/2024 Assessment & Plan (12/08/2024 3:45 PM CDT): We discussed that this is most likely to be anxiety related particularly as it is not constant however a structural substrate cannot be definitively excluded so will proceed with soft tissue ultrasound Metabolic dysfunction-associated steatohepatitis (MASH) 11/19/2024 Assessment & Plan (03/07/2025 7:30 AM CDT): Most recent FibroScan shows some regression of fibrosis. Assessment & Plan (12/08/2024 3:49 PM CDT): Liver biopsy 2019 revealed steatosis. Most recent Fibroscan shows some regression of fibrosis which is highly encouraging. She continues concerted weight loss efforts Assessment & Plan (11/19/2024 2:21 PM CDT): Liver biopsy 2019 revealed steatosis. Most recent Fibroscan shows improvement. She continues concerted weight loss efforts Routine medical exam 11/19/2024 Assessment & Plan (11/19/2024 2:32 PM CDT): Health maintenance objectives reviewed in orders placed for any outstanding screening if indicated. Physical exam performed as above. Mixed hyperlipidemia 11/19/2024 Assessment & Plan (03/07/2025 7:32 AM CDT): Stable on Repatha and Vascepa. Does not tolerate statins secondary to myalgias Assessment & Plan (11/19/2024 2:37 PM CDT): LDL 98 on 09/2024 FLP Continue Repatha Coronary artery disease invo lving [place] coronary artery of [place] heart with angina pectoris 09/06/2024 Assessment & Plan (03/07/2025 7:30 AM CDT): Nonocclusive. Stable on Repatha. Assessment & Plan (12/08/2024 3:34 PM CDT): Non flow limiting disease on [facility]. Stress/rest MPI from 11/15/2024 shows intact LVSF with small reversible wall motion abnormality unchanged from last study Continue GDMT Assessment & Plan (11/19/2024 2:28 PM CDT): Non flow limiting disease on [facility]. Stress/rest MPI from 11/15/2024 shows intact LVSF with small reversible wall motion abnormality unchanged from last study Continue GDMT BMI 28.0-28.9,adult 08/09/2024 Assessment & Plan (12/08/2024 3:11 PM CDT): BMI Follow-up includes: nutrition counseling, exercise counseling, and education provided. Assessment & Plan (11/18/2024 12:13 PM CDT): BMI Follow-up includes: nutrition counseling, exercise counseling, and education provided. Influenza vaccine refused 08/09/2024 Hormone replacement therapy (postmenopausal) 05/2024 Overview (08/09/2024): Managed by Gynecology. Left hip pain 06/30/2023 Dysuria 06/30/2023 Urinary incontinence 06/30/2023 Mild episode of recurrent major depressive disor sherie 06/30/2023 Assessment & Plan (03/09/2025 10:00 AM CDT): Stable on bupropion Assessment & Plan (08/09/2024 1:42 PM ROLL FORMING SUPERVISOR): Stable. Cont. Current prescription medications. Essential hematuria 06/30/2023 Generalized anxiety disorder 06/30/2023 Assessment & Plan (08/09/2024 1:42 PM ROLL FORMING SUPERVISOR): Clinically improved, continue current prescription medications. History of shingles 06/30/2023 Overview (06/30/2023): Famvir 500mg tid for 7 days. Pictures and information given from [facility]MATOLOGY, ezio Jensen. Hyperopia 06/30/2023 Hypothyroidism 06/30/2023 Overview (08/09/2024): Followed by endocrinology. Assessment & Plan (03/07/2025 7:29 AM CDT): Stable on levothyroxine. Managed by endocrinology Assessment & Plan (08/09/2024 1:10 PM ROLL FORMING SUPERVISOR): Stable. Cont. Current prescription medications, levothyroxine. Managed by Endocrinology. Memory loss 06/30/2023 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 Presbyopia 06/30/2023 Proteinuria 06/30/2023 Regular astigmatism 06/30/2023 Sensorineural hearing loss 06/30/2023 Overview (06/30/2023): Pt has noted some decreased ability to understand conversation. Will refer for audiogram, possible new rx for hearing aids. NO RECORD OF PREVIOUS HEARING EVALUATIONS WERE AVAILABLE FOR COMPARISON -- PT HAS APPT WITH CIVILIAN CORPORATE TRAFFIC MANAGER FOR REVIEW. DIGITAL HEARING AIDS RECOMMENDED BILATERALLY. Varicose veins of both lower extremities Vitamin D deficiency 06/30/2023 Erosive osteoarthritis of multiple sites Overview (08/09/2024): Managed by Rheumatology. Assessment & Plan (03/09/2025 10:48 AM CDT): Multiple sites including left hip and hands. Follows with Rheumatology. Assessment & Plan (12/08/2024 3:34 PM CDT): Diffuse involvement. Presently not on any DMARDs. Presently in pain flare. CKD precludes use of NSAIDs. Trial of duloxetine 20mg q.d. Has upcoming appt with rheumatology Assessment & Plan (11/19/2024 2:27 PM CDT): Diffuse involvement. Presently not on any DMARDs. Presently in pain flare. CKD precludes use of NSAIDs. Trial of duloxetine 20mg q.d. Has upcoming appt with rheumatology Chronic cystitis 06/30/2023 Assessment & Plan (08/09/2024 1:43 PM ROLL FORMING SUPERVISOR): Offered to refer to urology. Patient reports that she has one, but does not have their name. She will call us back and let us know the name. Encouraged follow-up with Urology. Localized, primary osteoarthritis of hand 2022 Overview (06/30/2023): darvocet renewed Knee osteoarthritis 03/24/2021 Erosive osteoarthritis 03/24/2021 KIERRA (renal osteodystrophy) 02/09/2019 Steatosis of liver 11/10/2017 Abnormally low high density lipoprotein (HDL) cholesterol with hypertriglyceridemia 11/10/2017 Gastroesophageal reflux disease 12/26/2015 Assessment & Plan (03/07/2025 7:31 AM CDT): Stable on esomeprazole Focal segmental glomerulosclerosis 02/02/2013 Assessment & Plan (03/07/2025 7:31 AM CDT): Stable. Monitor by Nephrology Hypertensive heart and kidney disease without he art failure 12/29/2010 Assessment & Plan (03/07/2025 7:28 AM CDT): Stable on irbesartan Assessment & Plan (12/08/2024 3:52 PM CDT): Stable. Biopsy proven FSGS. Continue ARB Assessment & Plan (08/09/2024 1:42 PM ROLL FORMING SUPERVISOR): Blood pressure is at goal of less than 140/90, continue current prescription medications, Avapro. Patient's blood pressure is managed by her television cameraman. Stage 3a chronic kidney disease 12/29/2010 Assessment & Plan (03/07/2025 7:28 AM CDT): Stable. Secondary to focal segmental glomerulosclerosis. Follows with Nephrology Assessment & Plan (12/08/2024 3:34 PM CDT): On the basis of FSGS from kidney biopsy in 2019 Stable. Followed by Nephrology. Continue irbesartan Assessment & Plan (11/19/2024 2:18 PM CDT): On the basis of FSGS from kidney biopsy in 2019 Stable. Followed by Nephrology. Continue irbesartan Assessment & Plan (08/09/2024 1:42 PM ROLL FORMING SUPERVISOR): Stable, continue Avapro. Followed by Nephrology. Resolved Problems Problem Noted Date Diagnosed Date Resolved Date Osteoarthritis of left hip 02/01/2025 0 03/09/2025 Hypertension, essential 11/19/2024 07/0 03/2025 Assessment & Plan (11/19/2024 2:30 PM CDT): Normotensive on irbesartan Continue present management Hypertriglyceridemia 11/19/2024 07/07/ 025 Assessment & Plan (11/19/2024 2:31 PM CDT): Vascepa was recently titrated by Dr. Osuna for TG of 266 on 09/2024 FLP Abdominal pain 06/30/2023 08/09/2024 Bladder pain 06/30/2023 08/09/2024 Abnormal electrocardiogram 06/30/2023 1 10/10/2023 Abnormal findings on diagnos tic imaging of breast 06/30/2023 08/09/2024 Ankle edema 06/30/2023 08/09/2024 Candidiasis of vagina 06/30/20232023 Chronic maxillary sinusitis 06/30/2023 08/09/2024 [place] 06/30/2023 08/09/2024 Overview (06/30/2023): pt given RX for carmol; continue to wear pads on area pt agrees w/ POC Cough 06/30/2023 08/09/2024 Familial hypertriglyceridemia 06/30/2023 08/09/2024 Flatulence, eructation and gas pain 06/30/2023 08/09/2024 Ganglion of hand 06/30/2023 08/09/2024 Limb pain 06/30/2023 08/09/2024 Overweight 06/30/2023 08/09/2024 Pain of finger 06/30/2023 08/09/2024 Pain in wrist 06/30/2023 08/09/2024 Sinusitis 06/30/2023 08/09/2024 Stress and adjustment reaction 06/30/2023 08/09/2024 Symptoms involving urinary system 06/30/2023 08/09/2024 Tinea pedis 06/30/2023 08/09/2024 Urinary tract infection 06/30/2023 12/0 05/2024 Osteoarthritis 06/30/2023 06/30/2023 Rheumatoid arthritis of hand 06/30/2023 03/07/2025 Chronic kidney disease 06/30/202308/09 Calculus of gallbladder with out cholecystitis without obstruction 06/30/2023 08/09/2024 Fatty (change of) liver, not elsewhere classified 06/30/2023 08/09/2024 Cellulitis of finger of right hand 10/30/2022 08/09/2024 Pain in right hand 10/30/2022 Abnormal stress test 05/02/2021 024 Overview (05/02/2021): Added automatically from request for surgery [id number] Fatigue 03/25/2021 08/09/2024 Gallstones 04/27/2019 08/09/2024 Stage 3 chronic kidney disease 11/14/2015 08/09/2024 SOB (shortness of breath) Encounters Date Type Department Care Team Description 03/29/2025 Orders Only [facility] Ne[facility] [address] [facility] [address] [place] [id number] Frank Alvarado MD Stage 3a chronic kidney disease (HCC) (Primary Dx) 03/28/2025 Orders Only [facility] Ne[facility]rology [address] [facility] [address] [place] [address] [place] [address] Frank Alvarado MD 03/25/2025 Telephone [facility] [address] [facility] [address] [place] [address] [place] [address] Frank Alvarado MD Keendia PA 03/10/2025 Orders Only [facility] Nephrology [address] [facility] [address] [place] [address] [place] [address] Frank Alvarado MD Persistent proteinuria (Primary Dx); Focal segmental glomerulosclerosis; Stage 3a chronic kidney disease (HCC); Essential hypertension 03/10/2025 Results Follow-Up [facility] Nephrology [address] [facility] [address] [place] [address] [place] [address] Frank Alvarado MD Protein, urine, 24 hour 03/09/2025 10:30 AM CDT Office Visit [facility] [address] [place] [phone] Reggie Perry MD Hypertensive heart and kidney disease without heart failure (Primary Dx); Stage 3a chronic kidney disease (HCC); Acquired hypothyroidism; Metabolic dysfunction-associated steatohepatitis (MASH); Coronary artery disease involving [place] coronary artery of [place] heart with angina pectoris; Mixed hyperlipidemia; Statin myopathy; Focal segmental glomerulosclerosis; Gastroesophageal reflux disease without esophagitis; Erosive osteoarthritis of multiple sites; Mild episode of recurrent major depressive disorder; Non-seasonal allergic rhinitis due to pollen 03/09/2025 9:10 AM CDT - 03/09/2025 11:59 PM CDT Hospital Encounter [facility] [address] [place] [id number] Stage 3a chronic kidney disease (HCC); Persistent proteinuria Discharge Disposition: Discharge to home or self care 02/24/2025 10:30 AM CDT Office Visit [facility] Nephrology [address] [facility] [address] [place] [address] [place] [address] Frank Alvarado MD Stage 3a chronic kidney disease (HCC) (Primary Dx); Benign hypertension with CKD (chronic kidney disease) stage III (HCC); Focal segmental glomerulosclerosis; Persistent proteinuria; Essential hypertension 02/24/2025 Telephone [facility] Nephrology [address] [facility] [address] [place] [id number] Juliann Viera RN 02/24/2025 Orders Only [facility] Nephrology [address] [facility] [address] [place] [phone] Frank Alvarado MD Persistent proteinuria (Primary Dx); Stage 3a chronic kidney disease (HCC) 02/17/2025 8:10 AM CDT Lab [facility] [address] [place] [phone] Chronic kidney disease, unspecified CKD stage; Focal segmental glomerulosclerosis; Essential hypertension; KIERRA (renal osteodystrophy); Stage 3a chronic kidney disease (HCC) from Last 3 Months Immunizations Immunization Administration Dates Next Due Hep A, Adult 10/28/2019,04/26/2019 Hep B Vaccine 02/25/2019,09/11/2018,07/28/2018 Influenza, Quadrivalent, Spl it, Preservative Free, Intramuscular 07/02/2021,08/03/2019,07/28/2018 Influenza, Trivalent, Adjuva nted, Intramuscular 10/02/2024 Influenza, Trivalent, Preser vative Free, Intramuscular 09/04/2016,09/14/2012 Influenza, Unspecified 06/01/2024,2022,07/23/2022,09/08 Moderna SARS-CoV-2 Monovalen t Vaccination (12+ YRS) 12/06/2020,11/08/2020 Pneumococcal Conjugate PCV 13 07/28/2018 Pneumococcal Polysaccharide PPV23 08/03/2019 Sars-CoV-2, Unspecified 03/09/2025(Deferred: Daphney boston Refused) Sars-cov-2 Covid-19 Mrna, Bi valent, Original/usmanron Ba.1 06/17/2022 Td, adsorbed 03/11/2000 Tdap 09/30/2022,04/08/2016 ZOSTER LIVE 09/14/2012 ZOSTER Recombinant 04/26/2019,02/25/2019 Surgical History Surgery Date Site/Laterality Comments WI TOTAL ABDOMINAL HYSTERECT W/WO RMVL TUBE OVARY Hysterectomy - (Added by TW Conv) ABSCESS DRAINAGE Incision And Drainage Of Skin Abscess Back - (Added by TW Conv) WI EXC CYST/ABERRANT BREAST TISSUE OPEN /> LESION Breast Surgery Lumpectomy - (Added by TW Conv) BLADDER SURGERY Bladder Surgery - (Added by TW Conv) WRIST SURGERY Wrist Surgery - (Added by TW Conv) CATARACT EXTRACTION Cataract Surgery - (Added by TW Conv) WI ESOPHAGOGASTRODUODENOSCOP Y TRANSORAL DIAGNOSTIC Diagnostic Esophagogastroduodenoscopy - (Added by TW Conv) WI COLONOSCOPY FLX DX W/MARCO J SPEC WHEN PFRMD Colonoscopy (Fiberoptic) - (Added by TW Conv) WI CORRJ HLX VLGS BNCTY SESM DC W/DOUBLE OSTEOTOMY Hallux Valgus (Bunion) Correction - (Added by TW Conv) CHOLECYSTECTOMY 06/01/20 19 CATARACT EXTRACTION 2012 HYSTERECTOMY 1991 LASIK 2014 Medical History Medical History Date Comments Personal history of other di seases of the digestive system History of esophageal reflux - (Added by TW Conv) Personal history of other en docrine, nutritional and metabolic disease History of hypothyro idism - (Added by TW Conv) Personal history of other di seases of the musculoskeletal system and connective tissue History of osteoarthritis - (Added by TW Conv) Personal history of other di seases of the musculoskeletal system and connective tissue History of rheumatoid arthri tis - (Added by TW Conv) Personal history of other di seases of the nervous system and sense organs History of macular degeneration - (Added by TW Conv) History of colonic polyps Histor y of colon polyps - (Added by TW Conv) Overweight Gallstones Thyroid disease Osteoporosis Arthritis PONV (postoperative nausea a nd vomiting) LIPSCOMB (nonalcoholic steatohepatitis) Hypertension Chronic kidney disease Glomerulosclerosis Cancer (HCC) skin cancer on f julio Osteoarthritis 06/30/2023 GERD (gastroesophageal reflux disease) 2015 Anxiety 2003 Cataract 2015 Migraines 1975 Mixed conductive and sensori neural hearing loss 1984 Family History Medical History Relation Name Comments Heart disease Brother 1 stent Heart disease Brother 2 stent Cancer Father Tasneem Dimas Lung cancer Father Tasneem Dimas Family history of lung cancer - (Added by TW Conv) Aneurysm Mother Edita Dimas Aneurysm - (Add ed by TW Conv) Arthritis Mother Edita Dimas Hearing loss Mother Edita Dimas Heart disease Mother Edita Dimas Hypertension Mother Edita Dimas Family history of hypertension - (Added by TW Conv) Ovarian cancer Paternal Grandmother age u nknown Relation Name Status Comments Brother 1 Brother 2 Father Tasneem Dimas Mother Edita Dimas Paternal Grandmother Social History Tobacco Use Types Packs/Day Years Used Date Smoking Tobacco: Never Passive Smoke Exposure: Never Smokeless Tobacco: Never Alcohol Use Standard Drinks/Week Comments Never 0 (1 standard drink = 0.6 oz pur e alcohol) AUDIT-C Answer Date Recorded Q1: How often do you have a drink containing alcohol? Never 03/09/2025 Q2: How many drinks containi ng alcohol do you have on a typical day when you are drinking? Patient does not drink Q3: How often do you have si x or more drinks on one occasion? Never 03/09/2025 PHQ-2 Answer Date Recorded PHQ-2 Total Score (If total score is 3 or more points, staff should administer the PHQ-9) 2 03/09/2025 Comments No Sex and Gender Information Value Date Recorded Sex Assigned at Not on file Legal Sex Female 10:14 PM ROLL FORMING SUPERVISOR Gender Identity Female 06/19/2020 1:01 PM CDT Sexual Orientation Straight 04/20/2019 8: 05 PM CDT Obstetrics History Para Term AB IAB SAB Ectopic Multiple Livin g Live Births 1 1 1 1 1 Date Outcome GA Total Labor Labor/2nd/3rd Weight Sex Type Anes PTL Rayna A1 A5 Name Clin Term 3.969 kg (8 lb 12 oz) Vag-S pont Living Last Filed Vital Signs Vital Sign Reading Time Taken Comments Blood Pressure 106/60 03/09/2025 10:43 AM CDT Pulse 74 03/09/2025 10:43 AM CDT Temperature 36.8 C (98.2 F) 03/09/2025 10:43 AM CDT Respiratory Rate 18 03/09/2025 10:4 3 AM CDT Oxygen Saturation 98% 03/09/2025 10: 43 AM CDT Inhaled Oxygen Concentration - - Weight 70.2 kg (154 lb 11.2 oz) 025 10:43 AM CDT Height 157.5 cm (5' 2) 03/09/2025 10:4 3 AM CDT Body Mass Index 28.3 03/09/2025 10:43 AM CDT Plan of Treatment Health Maintenance Due Date Last Done Comments Hepatitis C Screening 1955 Osteoporosis Screening-Bone Density Scan 03/12/2025 03/12/2023 Covid-19 Vaccine (2024-10 6 season) 2025 06/17/2022, 07/31/2021, 12/06/2020, Additional history exists Influenza Vaccine (#1) 2025 , 06/01/2024, 07/22/2023, Additional history exists Well Visit 65+ 11/19/2025 11/19/2024 Breast Cancer Screening-Mammogram 03/09/2026 025, 03/09/2024 Depression Screening 03/09/2026 03/09/2025, 11/20/19 25 Fall Risk Assessment 03/09/2026 03/09/2025, 11/19/2024, 05/09/2021 DTaP/Tdap/Td Vaccine (3 - Td or Tdap) 09/30/2032 09/30/2022, 04/08/2016, 03/11/2000 Colon Cancer Screening-Colonoscopy 01/19/20342023 Zoster Vaccine Completed 04/26/2019, 01/31, 09/14/2012 Pneumococcal vaccine 65+ Completed 08/03/2019, 07/03 Procedures Procedure Name Priority Date/Time Associated Diagnosis Comments VOLUME AND PERIOD, URINE, 24 HOUR Routine 03/09/2025 8:00 AM CDT Stage 3a chronic kidney disease (HCC) Persistent proteinuria PROTEIN, URINE, 24 HOUR RESULT Routine 03/09/2025 8:00 AM CDT Stage 3a chronic kidney disease (HCC) Persistent proteinuria PROTEIN, URINE, 24 HOUR Routine 03/09/2025 8:00 AM CDT Stage 3a chronic kidney disease (HCC) Persistent proteinuria URINALYSIS, MICROSCOPIC ONLY Routine 02/17/2025 8:31 AM CDT Chronic kidney disease, unspecified CKD stage Focal segmental glomerulosclerosis Essential hypertension KIERRA (renal osteodystrophy) Stage 3a chronic kidney disease (HCC) URINALYSIS AND REFLEX TO MICROSCOPIC Routine 02/17/2025 8:31 AM CDT Chronic kidney disease, unspecified CKD stage Focal segmental glomerulosclerosis Essential hypertension KIERRA (renal osteodystrophy) Stage 3a chronic kidney disease (HCC) PROTEIN / CREATININE RATIO, URINE, RANDOM Routine 02/17/2025 8:31 AM CDT Chronic kidney disease, unspecified CKD stage Focal segmental glomerulosclerosis Essential hypertension KIERRA (renal osteodystrophy) Stage 3a chronic kidney disease (HCC) EGFR Routine 02/17/2025 8:18 AM CDT Chronic kidney disease, unspecified CKD stage Focal segmental glomerulosclerosis Essential hypertension KIERRA (renal osteodystrophy) Stage 3a chronic kidney disease (HCC) DIFFERENTIAL AUTO Routine 02/17/2025 8:1 8 AM CDT Chronic kidney disease, unspecified CKD stage Focal segmental glomerulosclerosis Essential hypertension KIERRA (renal osteodystrophy) Stage 3a chronic kidney disease (HCC) VITAMIN D 25 HYDROXY Routine 02/17/2025 8:18 AM CDT Chronic kidney disease, unspecified CKD stage Focal segmental glomerulosclerosis Essential hypertension KIERRA (renal osteodystrophy) Stage 3a chronic kidney disease (HCC) PTH Routine 02/17/2025 8:18 AM CDT Chronic kidney disease, unspecified CKD stage Focal segmental glomerulosclerosis Essential hypertension KIERRA (renal osteodystrophy) Stage 3a chronic kidney disease (HCC) CBC WITH AUTO DIFFERENTIAL Routine 02/17/2025 8:18 AM CDT Chronic kidney disease, unspecified CKD stage Focal segmental glomerulosclerosis Essential hypertension KIERRA (renal osteodystrophy) Stage 3a chronic kidney disease (HCC) RENAL FUNCTION PANEL Routine 02/17/2025 8:18 AM CDT Chronic kidney disease, unspecified CKD stage Focal segmental glomerulosclerosis Essential hypertension KIERRA (renal osteodystrophy) Stage 3a chronic kidney disease (HCC) SCREENING MAMMOGRAM Schedule Routine, Read Routine (OP Routine) 03/09/2024 1:00 PM CDT HM DEXA SCAN Routine 03/12/2023 10:34 AM CDT from Last 3 Months or Most Recently Relevant to Health Maintenance Results * (ABNORMAL) Protein, urine, 24 hour (03/09/2025 8:00 AM CDT) Protein, 24 hr, ur 1,461(H) 0 - 150 mg/24H Comment:Testing performed by : [address] [id number] Urine 03/09/2025 8:00 AM CDT 03/09/2025 11:57 AM CDT us Frank Page MD LAB URINE O RDERABLES Final Result [facility] [address] [facility] [place] [address] * Volume and period, urine, 24 hour (03/09/2025 8:00 AM CDT) Volume, ur 2,075 mL Comment:Testing performed by : [address] [address] Period, Urine Collection 1,350 min VIDHI SAMS Comment:Testing performed by : [address] [address] Urine 03/09/2025 8:00 AM CDT 03/09/2025 11:57 AM CDT us Frank Page MD LAB URINE O RDERABLES Final Result VIDHI [address] [facility] Department [place] [address] * (ABNORMAL) Urinalysis reflex to microscopic (02/17/2025 8:31 AM CDT) Color, ur Yellow Yellow Comment:Testing performed by : [address] [address] Clarity, ur Clear Clear VIDHI Comment:Testing performed by : [address] [address] Specific gravity, ur 1.012 1.003 - 1.030 VIDHI Comment:Testing performed by : [address] [address] pH, urine 6.0 VIDHI Comment: Interpretive Data U rine pH is affected by diet, medications, systemic acid-base disturbances, and renal tubular function. pH may affect urinary stone formation. For example, urine pH below 6.0 may help reduce the tendency for calcium phosphate stones and pH greater than 6.0 may reduce the tendency for uric acid stone formation. Source: [facility] Current Interpretive Data was last revised on 2017 Testing performed by: [address] [address] Protein, ur ql 1+(A) Negative VIDHI Comment:Testing performed by : [address] [address] Glucose, ur ql Negative Negative VIDHI Comment:Testing performed by : [address] [address] Ketones, ur Negative Negative VIDHI Comment:Testing performed by : [address] [address] Bilirubin, ur Negative Negative VIDHI Comment:Testing performed by : [address] [address] Blood, ur Trace(A) Negative VIDHI Comment:Testing performed by : [address] [address] Urobilinogen, ur <2.0 <2.0 mg/dL VIDHI Comment:Testing performed by : [address] [address] Nitrite, ur Negative Negative VIDHI SMAS Comment:Testing performed by : [address] [address] Leukocyte esterase, ur Negative Negative VIDHI SAMS Comment:Testing performed by : [address] [address] UA reflex comment Reflex to microscopic UA will be performed. VIDHI SAMS Comment:Testing performed by : [address] [address] Urine 02/17/2025 8:31 AM CDT 02/17/2025 9:04 AM CDT us Frank Page MD LAB URINE O RDERABLES Final Result Performing Organization Address [facility]/ZIP Co de Phone Number VIDHI SAMS [address] [facility] Department [place] [address] * (ABNORMAL) Protein / creatinine ratio, urine, random (02/17/2025 8:31 AM CDT) Protein, ur, quant 65.0 mg/dL Comment: Interpretive Data No reference range established. Current interpretive data was last revised 2019. Testing performed by: [address] [address] Creatinine Ur 65.2 mg/dL VIDHI SAMS Comment: Interpretive Data No reference range established. Current interpretive data was last revised 2019. Testing performed by: [address] [address] Protein/creatinin e ratio 996.9(H) 0.0 - 180.0 mg/g CR VIDHI SAMS Comment:Testing performed by : [address] [address] Urine 02/17/2025 8:31 AM CDT 02/17/2025 9:59 AM CDT us Frank Page MD LAB URINE O RDERABLES Final Result Performing Organization Address City/[facility] Co de Phone Number ELENI[address] [place] [address] * (ABNORMAL) Urinalysis, microscopic only (02/17/2025 8:31 AM CDT) WBC, ur 0-5 0 - 5 /HPF Comment:Testing performed by : [address] [address] RBC, ur 0-2 0 - 2 /HPF VIDHI Comment:Testing performed by : [address] [address] Epithelial cells, squamous, ur 11-20(A) 0 - 5 /HPF VIDHI Comment:Testing performed by : [address] [address] Bacteria, ur Trace(A) VIDHI Comment:Testing performed by : [address] [address] Urine 02/17/2025 8:31 AM CDT 02/17/2025 9:06 AM CDT us Frank Page MD LAB URINE O RDERABLES Final Result Performing Organization Address [facility] Co de Phone Number VIDHI [address] [place] [address] * (ABNORMAL) eGFR (02/17/2025 8:18 AM CDT) eGFR 43(L) >=60 mL/min/1. 73 m2 Comment: Interpretive Data Reference Interval Normal >/= 90 mL/min/1.73m2 Mildly decreased* 60 - 89 mL/min/1.73m2 Mildly to moderately decreased 45 - 59 mL/min/1.73m2 Moderately to severely decreased 30 - 44 mL/min/1.73m2 Severely decreased 15 - 29 mL/min/1.73m2 Kidney Failure < 15 mL/min/1.73m2 *Relative to young adult level Estimated glomerular filtration rate is determined by the 2020 CKD-EPI equation recommended by the National Kidney Foundation (A Unifying Approach to GFR Estimation: Recommendations of the NKF-ASK Task Force on Reassessing the Inclusion of Race in Diagnosing Kidney Disease, JASN 202). The CKD-EPI equation should not be used for patients with unstable renal function and has not been validated in children and those over 70. Current interpretive data was last reviewed 2021. Testing performed by: [facility], [address] [place] [address]., [address] Blood 02/17/2025 8:18 AM CDT 02/17/2025 8:52 AM CDT us Frank Page MD LAB BLOOD O RDERABLES Final Result VIDHI [facility] Department [place] [address] * Differential, auto (02/17/2025 8:18 AM CDT) Neutrophil abs 3.67 1.50 - 6.50 K/cumm Comment:Testing performed by : [address] [address] Imm gran abs 0.02 0.00 - 0.10 K/cumm VIDHI Comment:Testing performed by : [address] [address] Lymphocyte abs 1.69 0.80 - 3.30 K/cumm VIDHI Comment:Testing performed by : [address] [address] Monocyte abs 0.44 0.20 - 0.80 K/cumm VIDHI Comment:Testing performed by : [address] [address] Eosinophil abs 0.17 0.00 - 0.50 K/cumm VIDHI Comment:Testing performed by : [address] [address] Basophil abs 0.05 0.00 - 0.10 K/cumm VIDHI Comment:Testing performed by : [address] [address] Neutrophil pct 60.8 % [facility] Comment: Interpretive Data Percent cell count reference ranges are not reported, since discordance with absolute values may lead to misinterpretation of CBC data. Current Interpretive Data was last revised on 2017. Testing performed by: [address] [address] Imm gran pct 0.3 % [facility] Comment: Interpretive Data Percent cell count reference ranges are not reported, since discordance with absolute values may lead to misinterpretation of CBC data. Current Interpretive Data was last revised on 2017. Testing performed by: [address] [address] Lymphocyte pct 28.0 % [facility] Comment: Interpretive Data Percent cell count reference ranges are not reported, since discordance with absolute values may lead to misinterpretation of CBC data. Current Interpretive Data was last revised on 2017. Testing performed by: [address] [address] Monocyte pct 7.3 % [facility] Comment: Interpretive Data Percent cell count reference ranges are not reported, since discordance with absolute values may lead to misinterpretation of CBC data. Current Interpretive Data was last revised on 2017. Testing performed by: [address] [address] Eosinophil pct 2.8 % [facility] Comment: Interpretive Data Percent cell count reference ranges are not reported, since discordance with absolute values may lead to misinterpretation of CBC data. Current Interpretive Data was last revised on 2017. Testing performed by: [address] [address] Basophil pct 0.8 % [facility] Comment: Interpretive Data Percent cell count reference ranges are not reported, since discordance with absolute values may lead to misinterpretation of CBC data. Current Interpretive Data was last revised on 2017. Testing performed by: [address] [address] Blood 02/17/2025 8:18 AM CDT 02/17/2025 8:53 AM CDT us Frank Page MD LAB BLOOD O RDERABLES Final Result [facility] [address] [facility] Department [place] [address] * (ABNORMAL) CBC with auto differential (02/17/2025 8:18 AM CDT) WBC 6.04 3.80 - 9.90 K/cumm Comment:Testing performed by : [address] [address] Hgb 11.7(L) 11.9 - 15.5 g/dL VIDHI Comment:Testing performed by : [address] [address] Hct 36.4 35.6 - 45.5 % VIDHI Comment:Testing performed by : [address] [address] Plt 177 150 - 400 K/cumm VIDHI Comment:Testing performed by : [address] [address] MPV 11.1 9.1 - 12.3 fL VIDHI Comment:Testing performed by : [address] [address] RBC 3.68(L) 3.90 - 5.20 M/cumm VIDHI Comment:Testing performed by : [address] [address] MCV 98.9(H) 81.3 - 96.4 fL VIDHI Comment:Testing performed by : [address] [address] MCH 31.8 27.1 - 33.3 pg VIDHI Comment:Testing performed by : [address] [address] MCHC 32.1(L) 32.3 - 35.7 g/dL VIDHI Comment:Testing performed by : [address] [address] RDW CV 12.4 11.1 - 14.9 % VDIHI Comment:Testing performed by : [address] [address] RDW SD 44.9 35.7 - 48.1 fL VIDHI SAMS Comment:Testing performed by : [facility], [address] [place] [address]., [address] NRBC abs 0.00 0.00 - 0.01 K/cumm VIDHI SAMS Comment:Testing performed by : [facility], [address] [place] [address]., [address] Blood 02/17/2025 8:18 AM CDT 02/17/2025 8:53 AM CDT Frank Page MD LAB BLOOD O RDERABLES Final Result ELENI[address] [place] [address] * Vitamin D 25 hydroxy (02/17/2025 8:18 AM CDT) Vitamin D 25-OH 44.0 30.0 - 80.0 ng/mL Blood 02/17/2025 8:18 AM CDT 02/17/2025 10:17 AM CDT Frank Page MD LAB BLOOD O RDERABLES Final Result Performing Organization Address City/[facility]/ZIP Co de Phone Number [address] [place] [address] * PTH (02/17/2025 8:18 AM CDT) PTH 37 15 - 65 pg/mL Comment:Testing performed by : [address] [address] Blood 02/17/2025 8:18 AM CDT 02/17/2025 8:52 AM CDT Frank Page MD LAB BLOOD O RDERABLES Final Result [address] [place] [address] * (ABNORMAL) Renal function panel (02/17/2025 8:18 AM CDT) Sodium 142 135 - 145 mmol/L Comment:Testing performed by : [address] [address] Potassium, pl 4.6 3.3 - 4.9 mmol/L VIDHI Comment:Testing performed by : [address] [address] Chloride 108 97 - 110 mmol/L VIDHI Comment:Testing performed by : [address] [address] CO2 24 22 - 32 mmol/L VIDHI Comment:Testing performed by : [address] [address] Anion gap 10 2 - 15 mmol/L VIDHI Comment:Testing performed by : [address] [address] BUN 26(H) 6 - 25 mg/dL [facility] Comment:Testing performed by : [address] [address] Creatinine 1.32(H) 0.60 - 1.10 mg/dL VIDHI Comment:Testing performed by : [address] [address] Glucose 112 70 - 199 mg/dL [facility] Comment: Interpretive Data Fasting glucose >/= 126 mg/dl is diagnostic for diabetes. Fasting is defined as no caloric intake for at least 8 hours. Fasting glucose between 100 mg/dl to 125 mg/dl is diagnostic of prediabetes. In a patient with classic symptoms of hyperglycemia or hyperglycemic crisis, a random glucose >/= 200 mg/dl is diagnostic for diabetes. In the absence of unequivocal hyperglycemia, results should be confirmed by repeat testing. The classification and Diagnosis of Diabetes Diabetes Care 202; 46: S19-S40. Current interpretive data was last revised 2022. Testing performed by: [address] [address] Calcium 9.6 8.5 - 10.3 mg/dL IVDHI Comment:Testing performed by : [address] [address] Phosphorus, pl 3.8 2.3 - 4.5 mg/dL VIDHI SAMS Comment:Testing performed by : [address] [address] Albumin 3.7 3.5 - 5.0 g/dL VIDHI SAMS Comment:Testing performed by : [address] [address] Blood 02/17/2025 8:18 AM CDT 02/17/2025 8:52 AM CDT us Frank Page MD LAB BLOOD O RDERABLES Final Result VIDHI SAMS [address] [facility] Department [place] [address] * Screening Mammogram (03/09/2024 1:00 PM CDT) Anatomical Region Laterality Modality Breast N/A Mammography Historical Provider IMG MAMMO PROCEDURES Supriya l Result * HM DEXA SCAN (03/12/2023 10:34 AM CDT) Марияs Sydney Spaulding MA - 03/12/2023 10:34 AM CDT Results under imaging Historical Provider HEALTH MAINTENANCE Final Result from Last 3 Months or Most Recently Relevant to Health Maintenance Insurance MEDICARE [facility] FEDERAL MEDICARE [facility] FEDERAL FOR LIFE Advance Directives For more information, please contact: [phone] * Full Code (Latest Code Status on File) Date Activated Date Inactivated Comments 05/09/2021 2:18 PM 05/09/2021 11:15 PM * Full Code Date Activated Date Inactivated Comments 06/01/2019 1:50 PM 06/02/2019 7:07 PM 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
--- OUTSIDE RECORDS SUMMARY | 2025-05-11 09:44 | XMS_ITS | Clinical Summary ---
Author Organization [facility] Address [address] [place] [address] Care Team Providers Care Software Computer Specialist Name Role Phone Khalif Adhikari MD Primary Care Provider [phone] Source Comments [facility],non-owned Affiliates and Associated Physician Practices is amultiple site organization consisting of ambulatory clinics and hospital sitesin [place], [place], [place] and [place]. This disclosure is being madepursuant to the Care Everywhere program and may not contain all information available regarding this patient. 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 Gender Identity Not on file Sexual Orientation Not on file Plan of Treatment Health Maintenance Due Date Last Done Comments BONE DENSITY TESTING 1955 COLOGUARD (AGES 45-75) - COL ON CA SCREENING 1955 COLON MONITORING 1953 COLONOSCOPY - COLON CA SCREENING 1953 CT COLONOGRAPHY - COLON CA SCREENING 1955 Colorectal Cancer Screening 1953 FIT - COLON CA SCREENING 1953 FLEX SIG - COLON CA SCREENING 1953 LIPID TESTING 1955 MAMMOGRAM 1953 HEPATITIS C SCREENING 02/27/1971 DTAP/TDAP/TD VACCINES (1 - Tdap) 1972 PNEUMOCOCCAL VACCINE 50+ (1 of 1 - PCV) 2003 ZOSTER VACCINE (1 of 2) 2003 DEPRESSION SCREENING 09/01/2024 COVID-19 VACCINE (1 2023-2 5 season) 2025 INFLUENZA VACCINE (#1) 2025 Respiratory Syncytial Virus (RSV) Vaccine Pt: or over 60 yrs (1 - 1-dose 75+ series) 2028 HEPATITIS B VACCINE Aged Out No longe r eligible based on patient's age to complete this topic HIB VACCINE Aged Out No longer eligi ble based on patient's age to complete this topic HPV VACCINE Aged Out No longer eligi ble based on patient's age to complete this topic MENINGOCOCCAL (Group B) VACC INE SHARED DECISION-MAKING Aged Out No longer eligibl e based on patient's age to complete this topic MENINGOCOCCAL GROUPS A/C/Y/W VACCINE Aged Out No longer eligible b ased on patient's age to complete this topic Insurance [employer] MEDICARE Care Teams Software Computer Specialist Relationship Specialty Start Date End Date Khalif Adhikari MD PCP - General Internal Medicine 10/13/20
--- OUTSIDE RECORDS SUMMARY | 2025-05-11 09:44 | XMS_ITS | Encounter Summary ---
Author Organization [facility] Address [address] [place] [address] Phone Care Team Providers Care Balance Wheel Screw Hole Driller Name Role Phone [facility] Primary Care Provider [phone] Chas Osuna MD Unavailable [phone] Frank Alvarado MD Unavailabl e Margaret Brewster MD Unavailable [phone] Alisha Moe DO Primary Care Provider [phone] Garrett Pierre MD Primary Care Provi sherie Reggie Perry MD Primary Care Provider + Encounter Details Date Type Department Care Team (Latest Contact Info) Description 05/21/2023 Orders Only [facility] Scanning, Provider [...] on file 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 [address] [place] [address] PCP - General 05/06/23 08/08/24 Alisha Moe DO [address] [address] PCP - General Family Medicine 08/09/24 10/11/24 Garrett Pierre MD [address] [facility] [address] [place] [address] PCP - General Internal Medicine 10/12/24 03/08/25 Reggie Perry MD [address] [place] [address] PCP - General Internal Medicine 03/09/25 Chas Osuna MD [address] [facility] [address] [place] [address] Consulting Physician Cardiology 08/09/24 Frank Alvarado MD [address] [place] [address] Consulting Physician Nephrology 08/09/24 Margaret Brewster MD [address] [place] [address] Referring Physician Gastroenterology 08/09/24 documented as of this encounter
--- OUTSIDE RECORDS SUMMARY | 2025-05-11 09:44 | XMS_ITS | Encounter Summary ---
Author Organization [facility] Address [address] [place] [address] Phone Care Team Providers Care Textile Examiner Name Role Phone Reggie Padilla MD Primary Care Provider [facility] Primary Care Provider Chas Osuna MD Unavailable [phone] Frank Alvarado MD Unavailabl e Margaret Brewster MD Unavailable [phone] Alisha Moe DO Primary Care Provider [phone] Garrett Pierre MD Primary Care Provi sherie Reggie Perry MD Primary Care Provider + Encounter Details Date Type Department Care Team (Latest Contact Info) Description 12/25/2022 Orders Only [facility] Scanning, Provider [...] on file 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 Gender Identity Female 06/19/2020 1:01 PM CDT Sexual Orientation Straight 04/20/2019 8: 05 PM CDT documented as of this encounter Plan of Treatment Not on file documented as of this encounter Procedures Procedure Name Priority Date/Time Associated Diagnosis Comments SCAN - LABS 12/25/2022 documented in this encounter Results * SCAN - LABS (12/25/2022) us Provider Scanning Edited Result - Final documented in this encounter Visit Diagnoses Not on filedocumented in this encounter Care Teams Textile Examiner Relationship Specialty Start Date End Date Reggie Padilla MD [address] [place] [address] PCP - General Internal Medicine 05/02/22 05/05/23 [facility] [address] [place] [address] PCP - General 05/06/23 08/08/24 Alisha Moe DO [address] [facility] [address] [address] PCP - General Family Medicine 08/09/24 10/11/24 Garrett Pierre MD [address] [facility] [address] [place] [address] PCP - General Internal Medicine 10/12/24 03/08/25 Reggie Perry MD [address] [place] [address] PCP - General Internal Medicine 03/09/25 Chas Osuna MD [address] [place] [address] Consulting Physician Cardiology 08/09/24 Frank Alvarado MD [address] [place] [address] Consulting Physician Nephrology 08/09/24 Margaret Brewster MD [address] [place] [address] Referring Physician Gastroenterology 08/09/24 documented as of this encounter
--- OUTSIDE RECORDS SUMMARY | 2025-05-11 09:44 | XMS_ITS | Encounter Summary ---
Author Organization [facility] Address [address] [place] [address] Phone Care Team Providers Care Camera Repairer Name Role Phone Chas Osuna MD Unavailable [phone] Frank Alvarado MD Unavailabl e Margaret Brewster MD Unavailable [phone] Reggie Perry MD Primary Care Provider + Encounter Details Date Type Department Care Team (Late st Contact Info) Description 03/10/2025 Results Follow-Up 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 Gender Identity Female 06/19/2020 1:01 PM CDT Sexual Orientation Straight 04/20/2019 8: 05 PM CDT documented as of this encounter Plan of Treatment Not on file documented as of this encounter Visit Diagnoses Not on filedocumented in this encounter Care Teams Camera Repairer Relationship Specialty Start Date End Date Reggie Perry MD [address] [place] [address] PCP - General Internal Medicine 03/09/25 Chas Osuna MD [address] [place] [address] Consulting Physician Cardiology 08/09/24 Frank Alvarado MD [address] [place] [address] Consulting Physician Nephrology 08/09/24 Margaret Brewster MD [address] [place] [address] Referring Physician Gastroenterology 08/09/24 documented as of this encounter
== END 2025-05-11 09:00 | disposition home or self-care (01) ==
PROVIDERS: PCP Obstetrics & Gynecology; Visit Provider Obstetrics & Gynecology
DX: Z12.31 Encounter for screening mammogram for malignant neoplasm of breast (principal); R92.8 Other abnormal and inconclusive findings on diagnostic imaging of breast
CPT/HCPCS: 77063; 77067

== ENCOUNTER 2025-06-15 12:44 | Outpatient (CLI) | payer MEDICARE, BC, OTHER, SELFPAY ==
--- OUTSIDE RECORDS SUMMARY | 2025-06-14 08:30 | XMS_ITS | Encounter Summary ---
Author Organization [facility] Address [address] [place] [address] Care Team Providers Care Fountain Dispenser Name Role Phone Chas Osuna MD Unavailable [phone] Frank Alvarado MD Unavailabl e Margaret Brewster MD Unavailable [phone] Reggie Perry MD Primary Care Provider + Reason for Visit * Reason Comments URI No recent COVID test , symptoms started a little over 3 weeks ago Encounter Details Date Type Department Care Team (Late st Contact Info) Description 06/14/2025 8:30 AM CDT Office Visit [facility] Primary Care [address] [place] [address] Caro Mallory PA [address] [place], [place] [id number] Acute bronchitis, unspecified organism (Primary Dx) Social History Tobacco Use Types Packs/Day Years Used Date Smoking Tobacco: Never Passive Smoke Exposure: Never Smokeless Tobacco: Never Alcohol Use Standard Drinks/Week Comments Never 0 (1 standard drink = 0.6 oz pur e alcohol) PHQ-2 Answer Date Recorded PHQ-2 Total Score 0 06/14/2025 AUDIT-C Answer Date Recorded Q1: How often do you have a drink containing alcohol? Never 06/14/2025 Q2: How many drinks containi ng alcohol do you have on a typical day when you are drinking? Patient does not drink Q3: How often do you have si x or more drinks on one occasion? 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 Gender Identity Female 06/19/2020 1:01 PM CDT Sexual Orientation Straight 04/20/2019 8: 05 PM CDT documented as of this encounter Last Filed Vital Signs Vital Sign Reading Time Taken Comments Blood Pressure 116/74 06/14/2025 8:33 AM CDT Pulse 64 06/14/2025 8:33 AM CDT Temperature 36.7 C (98 F) 06/14/2025 8:33 AM CDT Respiratory Rate 16 06/14/2025 8:33 AM CDT Oxygen Saturation 98% 06/14/2025 8:33 AM CDT Inhaled Oxygen Concentration - - Weight 70.8 kg (156 lb) 06/14/2025 8:33 AM CDT Height 157.5 cm (5' 2) 06/14/2025 8:33 AM CDT Body Mass Index 28.53 06/14/2025 8:33 AM CDT documented in this encounter Functional Status * AUDIT-C Score Answer Date of Assessment Author 0 06/14/2025 8:28 AM CDT Yane Wise MA * Question Answer Date of Assessment Author Q1: How often do you have a drink containing alcohol? Never 06/14/2025 8:28 AM MILANAT Fadia Wise MA Q2: How many drinks containing alcohol do you have on a typical day when you are drinking? Patient does not drink 06/14/2025 8:28 AM IMLANAT Fadia Wise MA Q3: How often do you have six or more drinks on one occasion? Never 06/14/2025 8:28 AM MILANAT Fadia Wise MA documented as of this encounter Ordered Prescriptions Prescription Sig Dispense Quantity Refills Last Filled Start Date End Date albuterol HFA (ProAir HFA) 90 mcg/actuation inhalerIndications :Acute bronchitis, unspecified organism Inhale 2 puffs every 4 (four) hours as needed for wheezing or shortness of breath for up to 15 days 8.5 g 06/14/2025 benzonatate (TESSALON) 100 mg capsuleIndications :Cough Take 1-2 caps every 8 hours as needed 30 capsule 06/14/2025 azithromycin (ZITHROMAX) 250 mg tabletIndications: Acute bronchitis, unspecified organism Take 2 tablets the first day, then 1 tablet daily for 4 days. 6 tablet 06/14/2025 documented in this encounter Progress Notes * Caro Mallory, NEISHA - 06/14/2025 8:30 AM CDT Images from the original note were not included. This patient has verbally consented to recording this visit in order to utilize AI technology in generating this note. Subjective/Objective Patient ID: Sally Blount is a 70 y.o. female. Assessment/Plan Diagnoses and all orders for this visit: Acute bronchitis, unspecified organism (Primary) Assessment & Plan: URI onset 3 weeks ago, expectorant changed color to green and brown one-week ago. Will treat with Z-Gaetano and benzonatate, for shortness of breaths albuterol as needed. Due to more profound generalized malaise, will check chest x-ray to rule out pneumonia. No acute respiratory distress, pulse ox 98%. Orders: - XR Chest Pa Lateral 2 Views; Future - azithromycin (ZITHROMAX) 250 mg tablet; Take 2 tablets the first day, then 1 tablet daily for 4 days. - benzonatate (TESSALON) 100 mg capsule; Take 1-2 caps every 8 hours as needed - albuterol HFA (ProAir HFA) 90 mcg/actuation inhaler; Inhale 2 puffs every 4 (four) hours as needed for wheezing or shortness of breath for up to 15 days Patient stated she had bone density and mammogram at [facility] 4 months ago, will request records. 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 09/06/2024 BMI 28.0-28.9,adult 08/09/2024 Influenza vaccine refused 08/09/2024 Hormone replacement therapy (postmenopausal) 08/09/2024 Left hip pain 06/30/2023 Dysuria 06/30/2023 Urinary incontinence 06/30/2023 Mild episode of recurrent major depressive disorder 06/30/2023 Essential hematuria 06/30/2023 Generalized anxiety disorder 06/30/2023 History of shingles 06/30/2023 Hyperopia 06/30/2023 Hypothyroidism 06/30/2023 Memory loss 06/30/2023 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 Presbyopia 06/30/2023 Proteinuria 06/30/2023 Regular astigmatism 06/30/2023 Sensorineural hearing loss 06/30/2023 Varicose veins of both lower extremities 06/30/2023 Vitamin D deficiency 06/30/2023 Erosive osteoarthritis of multiple sites 06/30/2023 Chronic cystitis 06/30/2023 Localized, primary osteoarthritis of hand 10/30/2022 Knee osteoarthritis 03/24/2021 Erosive osteoarthritis 03/24/2021 KIERRA (renal osteodystrophy) 02/09/2019 Steatosis of liver 11/10/2017 Abnormally low high density lipoprotein (HDL) cholesterol with hypertriglyceridemia 11/10/2017 Gastroesophageal reflux disease 12/26/2015 Focal segmental glomerulosclerosis 02/02/2013 Hypertensive heart and kidney disease without heart failure 12/29/2010 Stage 3a chronic kidney disease (HCC) 12/29/2010 Chief Complaint Chief Complaint Patient presents with URI No recent COVID test, symptoms started a little over 3 weeks ago HPI History of Present Illness Sally Blount is a 70 year old female who presents with a three-week history of upper respiratory symptoms and fatigue. She had clear nasal drainage that progressed to a sore throat, productive cough with mucus, and significant fatigue. The cough is associated with dry mouth and cracked lips, and there is a bump on the inside of her lower lip. Severe fatigue persists, with ten hours of sleep at night and additional daytime naps. She experiences shortness of breath without wheezing, and there is no fever or chills.Approximately a week and a half ago, cough mucus changed to green and brown. Luwi-hwf-tfwfdod medications, including a cough suppressant and Sudafed, provide temporary relief. She has right-sided earpain without drainage. She is allergic to penicillin. Prior to getting ill patient fell well at baseline. Review of Systems All other systems reviewed and are negative. Vitals BP 116/74 (BP Location: Left arm, Patient Position: Sitting) Pulse 64 Temp 36.7 ??C (98 ??F) (Skin) Resp 16 Ht 157.5 cm (5' 2) Wt 70.8 kg (156 lb) SpO2 98% BMI 28.53 kg/m?? Current Outpatient Medications Medication Sig Dispense Refill alpha lipoic acid 200 mg capsule Take 200 mg by mouth daily aspirin 81 mg enteric coated tablet TAKE 1 TABLET BY MOUTH DAILY 90 tablet 3 azelastine (ASTELIN) 137 mcg (0.1 %) nasal spray Administer 1 spray into each nostril 2 (two) timesa day Use in each nostril as directed 30 mL 3 buPROPion (Wellbutrin) 100 mg tablet Take 1 tablet (100 mg total) by mouth 2 (two) times a day 180 tablet 1 cholecalciferol (VITAMIN D-3) 1,000 unit capsule Take 1 capsule (1,000 Units total) by mouth every morning Climara 0.0375 mg/[address] 1 patch on the skin once a week esomeprazole DR (NexIUM) 40 mg capsule pt 20mg states nightly evolocumab (Repatha SureClick) 140 mg/mL pen injector ADMINISTER 1 ML(140 MG) UNDER THE SKIN EVERY 14 DAYS 6 mL 3 icosapent ethyL (VASCEPA) 1 gram capsule TAKE 2 CAPSULES(2 GRAMS) BY MOUTH TWICE DAILY 360 capsule 3 irbesartan (AVAPRO) 300 mg tablet Take 1 tablet (300 mg total) by mouth daily 90 tablet 2 levothyroxine (SYNTHROID) 88 mcg tablet cardiology fellow before breakfast spironolactone (ALDACTONE) 25 mg tablet Take 1 tablet (25 mg total) by mouth daily 30 tablet 11 albuterol HFA (ProAir HFA) 90 mcg/actuation inhaler Inhale 2 puffs every 4 (four) hours as needed for wheezing or shortness of breath for up to 15 days 8.5 g 0 azithromycin (ZITHROMAX) 250 mg tablet Take 2 tablets the first day, then 1 tablet daily for 4 days. 6 tablet 0 benzonatate (TESSALON) 100 mg capsule Take 1-2 caps every 8 hours as needed 30 capsule 0 diclofenac sodium (VOLTAREN) 1 % gel Apply 4 g topically 4 (four) times a day (Patient not taking: Reported on 06/14/2025) 200 g 11 fluticasone propionate (FLONASE) 50 mcg/actuation nasal spray Administer 2 sprays into each nostrildaily (Patient not taking: Reported on 06/14/2025) 5 each 5 No current facility-administered medications for this visit. Facility-Administered Medications Ordered in Other Visits Medication Dose Route Frequency Provider Last Rate Last Admin tc-99m tetrofosmin (MYOVIEW) injection 30 millicurie 30 millicurie intravenous Once in imaging Chas Osuna MD Physical Exam Constitutional: General: She is not in acute distress. Appearance: She is well-developed. She is ill-appearing. HENT: Head: Normocephalic and atraumatic. Right Ear: Tympanic membrane and ear canal normal. Left Ear: Tympanic membrane and ear canal normal. Nose: No mucosal edema or rhinorrhea. Right Sinus: No maxillary sinus tenderness or frontal sinus tenderness. Left Sinus: No maxillary sinus tenderness or frontal sinus tenderness. Mouth/Throat: Pharynx: No oropharyngeal exudate or posterior oropharyngeal erythema. Tonsils: No tonsillar exudate. Eyes: General: Lids are normal. Conjunctiva/sclera: Conjunctivae normal. Cardiovascular: Rate and Rhythm: Normal rate and regular rhythm. Heart sounds: No murmur heard. Pulmonary: Effort: Pulmonary effort is normal. Breath sounds: No wheezing or rales. Skin: General: Skin is warm and dry. Findings: No rash. Neurological: Mental Status: She is alert. Cosigned by Reggie Perry MD at 06/14/2025 12:16 PM CDT documented in this encounter Miscellaneous Notes * Assessment & Plan Note - Caro Mallory PA - 06/14/2025 9:43 AM CDT Associated Problem(s): Acute bronchitis URI onset 3 weeks ago, expectorant changed color to green and brown one-week ago. Will treat with Z-Gaetano and benzonatate, for shortness of breaths albuterol as needed. Due to more profound generalized malaise, will check chest x-ray to rule out pneumonia. No acute respiratory distress, pulse ox 98%. documented in this encounter Plan of Treatment Not on file documented as of this encounter Results * XR Chest Pa Lateral 2 Views (06/14/2025 10:07 AM CDT) Anatomical Region Laterality Modality Body, Chest N/A Computed Radiogr aphy 06/15/2025 9:24 AM CDT Narrative 06/15/2025 9:26 AM CDT EXAM DESCRIPTION: XR CHEST PA LATERAL 2 VIEWS REASON FOR STUDY: cough x 3 weeks, SOB Shortness of breath, cough, congestion, fatigue, and sore throat for 3 weeks TECHNIQUE: Two views COMPARISON: 02/21/2023 FINDINGS: Heart size and vascularity appear normal. Aortic arch well-defined on the left. Granulomatous calcification hilar regions No dense consolidation, effusion or pneumothorax. Moderate bony degenerative changes 1st ribs obscures the apices. Also noted thoracic spine. IMPRESSION: No acute findings. THIS IS AN ELECTRONICALLY VERIFIED FINAL REPORT 06/15/2025 9:26 AM - Electronically signed by Donnie Doyle M.D. RB: RB Report ID: [id number] Reading Location: [id number] Procedure Note Donnie Doyle MD - 06/15/2025 EXAM DESCRIPTION: XR CHEST PA LATERAL 2 VIEWS REASON FOR STUDY: cough x 3 weeks, SOB Shortness of breath, cough, congestion, fatigue, and sore throat for 3weeks TECHNIQUE: Two views COMPARISON: 02/21/2023 FINDINGS: Heart size and vascularity appear normal. Aortic arch well-defined on the left. Granulomatous calcification hilar regions No dense consolidation, effusion or pneumothorax. Moderate bony degenerative changes 1st ribs obscures the apices. Alsonoted thoracic spine. IMPRESSION: No acute findings. THIS IS AN ELECTRONICALLY VERIFIED FINAL REPORT 06/15/2025 9:26 AM - Electronically signed by Donnie Doyle M.D. RB: RB Report ID: [id number] Reading Location: [id number] Caro DRIVER IMG XR PROCEDURES Fin al Result documented in this encounter Visit Diagnoses Diagnosis Acute bronchitis, unspecified organism- Primary Acute bronchitis, unspecified organism documented in this encounter Care Teams Fountain Dispenser Relationship Specialty Start Date End Date Reggie Perry MD [address] [place] [address] PCP - General Internal Medicine 03/09/25 Chas Osuna MD [address] [place] [address] Consulting Physician Cardiology 08/09/24 Frank Alvarado MD [address] [place] [address] Consulting Physician Nephrology 08/09/24 Margaret Brewster MD [address] [place] [address] Referring Physician Gastroenterology 08/09/24 documented as of this encounter
--- OUTSIDE RECORDS SUMMARY | 2025-06-14 09:53 | XMS_ITS | Encounter Summary ---
Author Organization [facility] Address [address] [place] [address] Care Team Providers Care Pig Handler Name Role Phone Chas Osuna MD Unavailable [phone] Frank Alvarado MD Unavailabl e Margaret Brewster MD Unavailable [phone] Reggie Perry MD Primary Care Provider + Encounter Details Date Type Department Care Team (Latest Contact Info) Description 06/14/2025 9:53 AM CDT - 06/14/2025 11:59 PM CDT Hospital Encounter [facility] [address] [place] [address] Acute bronchitis, unspecified organism Discharge Disposition: Discharge to home or self care Social History Tobacco Use Types Packs/Day Years [...] on file 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 Never 06/14/2025 8:28 AM Fadia Duncan MA Q2: How many drinks containing alcohol do you have on a typical day when you are drinking? Patient does not drink 06/14/2025 8:28 AM MILANAT Fadia Wise MA Q3: How often do you have six or more drinks on one occasion? Never 06/14/2025 8:28 AM Fadia Duncan MA documented as of this encounter Medications at Time of Discharge albuterol HFA (ProAir HFA) 90 mcg/actuation inhalerIndications :Acute bronchitis, unspecified organism Inhale 2 puffs every 4 (four) hours as needed for wheezing or shortness of breath for up to 15 days 8.5 g 06/14/2025 alpha lipoic acid 200 mg capsule Take 200 mg by mouth daily aspirin 81 mg enteric coated tablet TAKE 1 TABLET BY MOUTH DAILY 90 tablet 3 02/09/2025 azelastine (ASTELIN) 137 mcg (0.1 %) nasal spray Administer 1 spray into each nostril 2 (two) times a day Use in each nostril as directed 30 mL 3 11/19/2024 azithromycin (ZITHROMAX) 250 mg tabletIndications: Acute bronchitis, unspecified organism Take 2 tablets the first day, then 1 tablet daily for 4 days. 6 tablet 06/14/2025 benzonatate (TESSALON) 100 mg capsuleIndications :Cough Take 1-2 caps every 8 hours as needed 30 capsule 06/14/2025 buPROPion (Wellbutrin) 100 mg tabletIndications: Anxiety with Depression Take 1 tablet (100 mg total) by mouth 2 (two) times a day 180 tablet 1 04/07/2025 cholecalciferol (VITAMIN D-3) 1,000 unit capsule Take 1 capsule (1,000 Units total) by mouth every morning 02/02/2013 Climara 0.0375 mg/[address] 1 patch on the skin once a week 03/07/2022 diclofenac sodium (VOLTAREN) 1 % gel Apply 4 g topically 4 (four) times a day 200 g 11 02/01/[address] (NexIUM) 40 mg capsule pt 20mg states nightly evolocumab (Repatha SureClick) 140 mg/mL pen injector ADMINISTER 1 ML(140 MG) UNDER THE SKIN EVERY 14 DAYS 6 mL 3 01/19/2025 fluticasone propionate (FLONASE) 50 mcg/actuation nasal sprayIndications:N on-seasonal allergic rhinitis due to pollen Administer 2 sprays into each nostril daily 5 each 5 03/09/2025 icosapent ethyL (VASCEPA) 1 gram capsule TAKE 2 CAPSULES(2 GRAMS) BY MOUTH TWICE DAILY 360 capsule 3 05/01/2025 irbesartan (AVAPRO) 300 mg tabletIndications: Focal segmental glomerulosclerosis ,Essential hypertension Take 1 tablet (300 mg total) by mouth daily 90 tablet 2 02/24/2025 levothyroxine (SYNTHROID) 88 mcg tablet geothermal technician before breakfast 01/23/2022 spironolactone (ALDACTONE) 25 mg tablet Take 1 tablet (25 mg total) by mouth daily 30 tablet 11 03/29/2025 6 documented as of this encounter Discharge Disposition Disposition Code Departure Means Destination Discharge to home or self care documented in this encounter Plan of Treatment Not on file documented as of this encounter Procedures Procedure Name Priority Date/Time Associated Diagnosis Comments XR CHEST PA LATERAL 2 VIEWS Schedule Routine, Read Routine (OP Routine) 06/14/2025 10:07 AM CDT Acute bronchitis, unspecified organism documented in this encounter Results * XR Chest Pa [...] Electronically signed by Donnie Doyle M.D. RB: ALEE Report ID: [id number] Reading Location: [id number] Procedure Note Donnie Doyle MD - 06/15/2025 [...] Donnie Doyle M.D. RB: RB Report ID: [id number] Reading Location: [id number] Caro DRIVER IMG XR PROCEDURES Fin al Result documented in this encounter Visit Diagnoses Diagnosis Acute bronchitis, unspecified organism documented in this encounter Care Teams Pig Handler Relationship Specialty Start Date End Date Reggie Perry MD [address] [place] [address] PCP - General Internal Medicine 03/09/25 Chas Osuna MD [address] [facility] [address] [place] [address] Consulting Physician Cardiology 08/09/24 Frank Alvarado MD [address] [place] [address] Consulting Physician Nephrology 08/09/24 Margaret Brewster MD [address] [place] [address] Referring Physician Gastroenterology 08/09/24 documented as of this encounter
--- NOTE | ~2025-06-15 | MMUS_ITS ---
EXAMINATION: MM diagnostic ermias RT w kasandra, US breast RT limited HISTORY: Inconclusive mammogram. TECHNIQUE: Additional 3-D tomosynthesis images of right breast were performed and synthetic 2-D images were generated. CAD analysis was submitted and interpreted. High resolution right breast ultrasound was performed. COMPARISON: Mammograms from 05/11/2025, 03/09/2024 and 03/12/2023 BREAST PARENCHYMAL COMPOSITION: The right breast is heterogeneously dense, which may obscure small masses. FINDINGS: MAMMOGRAPHIC FINDINGS: Focal asymmetry in the right breast at the 6:00 position, middle depth. There is a probable sonographic correlate. No suspicious calcifications or architectural distortion. ULTRASOUND: There is a 3 x 4 x 2 mm hypoechoic cyst versus solid mass in the right breast at 4:00 position 2 cm from the nipple. The finding is wider than tall. No internal color flow. No posterior acoustic shadowing. The finding is probably benign. There is a 3 x 4 x 2 mm hypoechoic cyst versus solid mass in the right breast at the 6:00 position 3 cm from the nipple. The finding is wider than tall. No internal color Doppler flow. No posterior acoustic shadowing. The finding is probably benign. The finding may correspond with the mammographic focal asymmetry. There is a 5 x 8 x 2 mm hypoechoic cyst versus solid mass in the right breast at the 8:00 position 7 cm from the nipple. The finding is wider than tall. No internal color Doppler flow. No posterior acoustic shadowing. The finding is probably benign. IMPRESSION: 1. Probably benign findings in the right breast. A diagnostic right breast mammogram and a diagnostic right breast ultrasound is recommended. BI-RADS 3-Probably benign-Short interval follow-up suggested. Reviewed, dictated and finalized at location Q. IMPRESSION: 1. Probably benign findings in the right breast. A diagnostic right breast mamm ogram and a diagnostic right breast ultrasound is recommended. BI-RADS 3-Probably benign-Short interval follow-up suggested.
--- OUTSIDE RECORDS SUMMARY | 2025-06-15 14:30 | XMS_ITS | Encounter Summary ---
Author Organization [facility] Address [address] [place] [address] Phone Care Team Providers Care Naphthalene Operator Helper Name Role Phone Melvi Coffey MD Primary Care Provider Richardson Navarro Trejo DO Primary Care Provider [phone] Unknown, Notinfile Primary Care Provider Unavail able Dylan Navarro Trejo DO Primary Care Provider [phone] Miscellaneous, Not In File Primary Care Provider Unavailable Miscellaneous, Not In File Primary Care Provider Unavailable [facility] Primary Care Provider [phone] Reggie Padilla MD Primary Care Provider [phone] [facility] Primary Care Provider [phone]- [phone] Chas Osuna MD Unavailable [phone] Frank Alvarado MD Unavailabl e Margaret Brewster MD Unavailable + [phone] Alisha Moe DO Primary Care Provider + [phone] Garrett Pierre MD Primary Care Provi sherie [...] file 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 Gender Identity Female 06/19/2020 1:01 PM CDT [...] on filedocumented in this encounter Care Teams Naphthalene Operator Helper Relationship Specialty Start Date End Date Melvi Coffey MD [address] [place] [address] PCP - General 11/25/17 03/11/21 Navarro Richardson DO [address] [place] [address] PCP - General Family Medicine 03/12/21 03/14/21 Unknown, Notinfile PCP - General 03/15/21 05/27/21 Navarro Richardson DO [address] [place], [place] [address] PCP - General Family Medicine 05/28/21 10/09/21 Miscellaneous, Not In File PCP - General 10/10/21 2 Miscellaneous, Not In File PCP - General 10/11/21 [facility] [address] [place] [address] PCP - General 01/22/22 05/01/22 Reggie Padilla MD [address] [place] [address] PCP - General Internal Medicine 05/02/22 05/05/23 [facility] [address] [place] [address] PCP - General 05/06/23 08/08/24 Alisha Moe DO [address] [address] PCP - General Family Medicine 08/09/24 10/11/24 Garrett Pierre MD [address] [facility] [address] [place] [address] PCP - General Internal Medicine 10/12/24 03/08/25 Reggie Perry MD [address] [place] [address] PCP - General Internal Medicine 03/09/25 Chas Osuna MD [address] [facility] [address] [place] [address] Consulting Physician Cardiology 08/09/24 Frank Alvarado MD [address] [place] [address] Consulting Physician Nephrology 08/09/24 Margaret Brewster MD [address] [place] [address] Referring Physician Gastroenterology 08/09/24 documented as of this encounter
--- OUTSIDE RECORDS SUMMARY | 2025-06-15 14:30 | XMS_ITS | Encounter Summary ---
Author Organization [facility] Address [address] [place] [address] Phone Care Team Providers Care Prep Person Name Role Phone Melvi Coffey MD Primary Care Provider Richardson Navarro Trejo DO Primary Care Provider [phone] Unknown, Notinfile Primary Care Provider Unavail able Dylan Navarro Trejo DO Primary Care Provider [phone] Miscellaneous, Not In File Primary Care Provider Unavailable Miscellaneous, Not In File Primary Care Provider Unavailable [facility] Primary Care Provider [phone] Reggie Padilla MD Primary Care Provider [phone]- [phone] [facility] Primary Care Provider [phone]- [phone] Chas Osuna MD Unavailable [phone] Frank Alvarado MD Unavailabl e Margaret Brewster MD Unavailable + [phone] Alisha Moe DO Primary Care Provider + [phone] Garrett Pierre MD Primary Care Provi sherie [...] on file 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 Gender Identity Female 06/19/2020 1:01 PM CDT [...] on filedocumented in this encounter Care Teams Prep Person Relationship Specialty Start Date End Date Melvi Coffey MD [address] [place] [address] PCP - General 11/25/17 03/11/21 Navarro Richardson DO [address] [place] [address] PCP - General Family Medicine 03/12/21 03/14/21 Unknown, Notinfile PCP - General 03/15/21 05/27/21 Navarro Richardson DO [address] [place] [address] PCP - General Family Medicine 05/28/21 10/09/21 Miscellaneous, Not In File PCP - General 10/10/21 2 Miscellaneous, Not In File PCP - General 10/11/21 [facility] [address] [place] [address] PCP - General 01/22/22 05/01/22 Reggie Padilla MD [address] [place] [address] PCP - General Internal Medicine 05/02/22 05/05/23 [facility] [address] [place] [address] PCP - General 05/06/23 08/08/24 Alisha Moe DO [address] [address] PCP - General Family Medicine 08/09/24 10/11/24 Garrett Pierre MD [address] [facility] [address] [place] [address] PCP - General Internal Medicine 10/12/24 03/08/25 Reggie Perry MD [address] [place] [address] PCP - General Internal Medicine 03/09/25 Chas Osuna MD [address] [facility] [address] [place] [address] Consulting Physician Cardiology 08/09/24 Frank Alvarado MD [address] [place] [address] Consulting Physician Nephrology 08/09/24 Margaret Brewster MD [address] [place] [address] Referring Physician Gastroenterology 08/09/24 documented as of this encounter
--- OUTSIDE RECORDS SUMMARY | 2025-06-15 14:30 | XMS_ITS | Encounter Summary ---
Author Organization [facility] Address [address] [place] [address] Phone Care Team Providers Care Tea And Spice Supervisor Name Role Phone Chas Osuna MD Unavailable [phone] Frank Alvarado MD Unavailabl e Margaret Brewster MD Unavailable +[phone] Alisha Moe DO Primary Care Provider +[phone]- [phone] Garrett Pierre MD Primary Care Provi sherie Reggie Perry MD Primary Care Provider + Encounter Details Date Type Department Care Team (Late st Contact Info) Description 08/18/2024 Telephone [facility] Medicine Gastroenterology [address] [facility] 12th [place] [address] [place] [address] Cassie Atkins LPN Social History [...] on file 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 Gender Identity Female 06/19/2020 1:01 PM CDT Sexual Orientation Straight 04/20/2019 8: 05 PM CDT documented as of this encounter Plan of Treatment Not on file documented as of this encounter Visit Diagnoses Not on filedocumented in this encounter Care Teams Tea And Spice Supervisor Relationship Specialty Start Date End Date Alisha Moe DO [address] [address] PCP - General Family Medicine 08/09/24 10/11/24 Garrett Pierre MD [address] [facility] 110 [place] [address] PCP - General Internal Medicine 10/12/24 03/08/25 Reggie Perry MD [address] [place] [address] PCP - General Internal Medicine 03/09/25 Chas Osuna MD [address] [facility] 2300 [place] [address] Consulting Physician Cardiology 08/09/24 Frank Alvarado MD [address] [place] [address] Consulting Physician Nephrology 08/09/24 Margaret Brewster MD [address] [place] [address] Referring Physician Gastroenterology 08/09/24 documented as of this encounter
--- OUTSIDE RECORDS SUMMARY | 2025-06-15 14:30 | XMS_ITS | Encounter Summary ---
Author Organization [facility] Address [address] [place] [address] Phone Care Team Providers Care Salesperson Toy Trains And Accessories Name Role Phone Melvi Coffey MD Primary Care Provider Richardson Navarro Trejo DO Primary Care Provider [phone] Unknown, Notinfile Primary Care Provider Unavail able Dylan Navarro Trejo DO Primary Care Provider [phone] Miscellaneous, Not In File Primary Care Provider Unavailable Miscellaneous, Not In File Primary Care Provider Unavailable [facility] Primary Care Provider [phone] Reggie Padilla MD Primary Care Provider +- [phone] [facility] Primary Care Provider +- [phone] Chas Osuna MD Unavailable [phone] Frank Alvarado MD Unavailabl e Margaret Brewster MD Unavailable + [phone] Alisha Moe DO Primary Care Provider + [phone] Garrett Pierre MD Primary Care Provi sherie [...] on file 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 Gender Identity Female 06/19/2020 1:01 PM [...] on filedocumented in this encounter Care Teams Salesperson Toy Trains And Accessories Relationship Specialty Start Date End Date Melvi Coffey MD [address] [place], [place] [address] PCP - General 11/25/17 03/11/21 Navarro Richardson DO [address] [place] [address] PCP - General Family Medicine 03/12/21 03/14/21 Unknown, Notinfile PCP - General 03/15/21 05/27/21 Navarro Richardson DO [address] [place] [address] PCP - General Family Medicine 05/28/21 10/09/21 Miscellaneous, Not In File PCP - General 10/10/21 2 Miscellaneous, Not In File PCP - General 10/11/21 [facility] [address] [place] [address] PCP - General 01/22/22 05/01/22 Reggie Padilla MD [address] [place] [address] PCP - General Internal Medicine 05/02/22 05/05/23 [facility] [address] [place] [address] PCP - General 05/06/23 08/08/24 Alisha Moe DO [address] [address] PCP - General Family Medicine 08/09/24 10/11/24 Garrett Pierre MD [address] [facility] 110 [place] [address] PCP - General Internal Medicine 10/12/24 03/08/25 Reggie Perry MD [address] [place] [address] PCP - General Internal Medicine 03/09/25 Chas Osuna MD [address] [facility] 2300 [place] [address] Consulting Physician Cardiology 08/09/24 Frank Alvarado MD [address] [place] [address] Consulting Physician Nephrology 08/09/24 Margaret Brewster MD [address] [place] [address] Referring Physician Gastroenterology 08/09/24 documented as of this encounter
--- OUTSIDE RECORDS SUMMARY | 2025-06-15 14:30 | XMS_ITS | Encounter Summary ---
Author Organization [facility] Address [address] [place] [address] Phone Care Team Providers Care Caretaker Name Role Phone Unknown, Notinfile Primary Care Provider Unavail able Dylan Navarro Trejo DO Primary Care Provider Miscellaneous, Not In File Primary Care Provider Unavailable Miscellaneous, Not In File Primary Care Provider Unavailable [facility] Primary Care Provider [phone] Reggie Padilla MD Primary Care Provider +[phone]- [phone] [facility] Primary Care Provider +[phone]- [phone] Chas Osuna MD Unavailable [phone] Frank Alvarado MD Unavailabl e Margaret Brewster MD Unavailable +[phone]- [phone] Alisha Moe DO Primary Care Provider +[phone]- [phone] Garrett Pierre MD Primary Care Provi sherie [...] on file 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 Gender Identity Female 06/19/2020 1:01 PM CDT [...] on filedocumented in this encounter Care Teams Caretaker Relationship Specialty Start Date End Date Unknown, Notinfile PCP - General 03/15/21 05/27/21 Navarro Richardson DO [address] [place], [place] [address] PCP - General Family Medicine 05/28/21 10/09/21 Miscellaneous, Not In File PCP - General 10/10/21 2 Miscellaneous, Not In File PCP - General 10/11/21 [facility] [address] [place], [place] [address] PCP - General 01/22/22 05/01/22 Reggie Padilla MD [address] [place] [address] PCP - General Internal Medicine 05/02/22 05/05/23 [facility] [address] [place] [address] PCP - General 05/06/23 08/08/24 Alisha Moe DO [address] [facility] 260 [place] [address] PCP - General Family Medicine 08/09/24 10/11/24 Garrett Pierre MD [address] [facility] 110 [place] [address] PCP - General Internal Medicine 10/12/24 03/08/25 Reggie Perry MD [address] [place] [address] PCP - General Internal Medicine 03/09/25 Chas Osuna MD [address] [facility] 2300 [place] [address] Consulting Physician Cardiology 08/09/24 Frank Alvarado MD [address] [place] [address] Consulting Physician Nephrology 08/09/24 Margaret Brewster MD [address] [place] [address] Referring Physician Gastroenterology 08/09/24 documented as of this encounter
--- OUTSIDE RECORDS SUMMARY | 2025-06-15 14:30 | XMS_ITS | Encounter Summary ---
Author Organization [facility] Address [address] [place] [address] Phone Care Team Providers Care Pouncer Name Role Phone Melvi Coffey MD Primary Care Provider Richardson Navarro Trejo DO Primary Care Provider [phone] Unknown, Notinfile Primary Care Provider Unavail able Dylan Navarro Trejo DO Primary Care Provider [phone] Miscellaneous, Not In File Primary Care Provider Unavailable Miscellaneous, Not In File Primary Care Provider [facility]available [facility] Primary Care Provider [phone] Reggie Padilla MD Primary Care Provider +- [phone] [facility] Primary Care Provider +- [phone] Chas Osuna MD Unavailable [phone] Frank Alvarado MD Unavailabl e Margaret Brewster MD Unavailable + [phone] Alisha Moe DO Primary Care Provider + [phone] Garrett Pierre MD Primary Care Provi sherie [...] on file 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 Gender Identity Female 06/19/2020 1:01 PM CDT [...] on filedocumented in this encounter Care Teams Pouncer Relationship Specialty Start Date End Date Melvi Coffey MD [address] [place], [place] [address] PCP - General 11/25/17 03/11/21 Navarro Richardson DO [address] [place] [address] PCP - General Family Medicine 03/12/21 03/14/21 Unknown, Notinfile PCP - General 03/15/21 05/27/21 Navarro Richardson DO [address] [place] [address] PCP - General Family Medicine 05/28/21 10/09/21 Miscellaneous, Not In File PCP - General 10/10/21 2 Miscellaneous, Not In File PCP - General 10/11/21 [facility] [address] [place] [address] PCP - General 01/22/22 05/01/22 Reggie Padilla MD [address] [place] [address] PCP - General Internal Medicine 05/02/22 05/05/23 [facility] [address] [place] [address] PCP - General 05/06/23 08/08/24 Alisha Moe DO [address] [address] PCP - General Family Medicine 08/09/24 10/11/24 Garrett Pierre MD [address] [facility] 110 [place] [address] PCP - General Internal Medicine 10/12/24 03/08/25 Reggie Perry MD 130 [place] [address] PCP - General Internal Medicine 03/09/25 Chas Osuna MD [address] [facility] 2300 [place] [address] Consulting Physician Cardiology 08/09/24 Frank Alvarado MD [address] [place] [address] Consulting Physician Nephrology 08/09/24 Margaret Brewster MD [address] [place] [address] Referring Physician Gastroenterology 08/09/24 documented as of this encounter
--- OUTSIDE RECORDS SUMMARY | 2025-06-15 14:30 | XMS_ITS | Encounter Summary ---
Author Organization [facility] Address [address] [place] [address] Phone Care Team Providers Care Co Founder And Chief Strategy Officer Name Role Phone Melvi Coffey MD Primary Care Provider Richardson Navarro Trejo DO Primary Care Provider [phone] Unknown, Notinfile Primary Care Provider Unavail able Dylan Navarro Trejo DO Primary Care Provider [phone] Miscellaneous, Not In File Primary Care Provider Unavailable Miscellaneous, Not In File Primary Care Provider Unavailable [facility] Primary Care Provider [phone] Reggie Padilla MD Primary Care Provider +- [phone] [facility] Primary Care Provider +- [phone] Chas Osuna MD Unavailable [phone] Frank Alvarado MD Unavailabl e Margaret Brewster MD Unavailable + [phone] Alisha Moe DO Primary Care Provider + [phone] Garrett Pierre MD Primary Care Provi sherie [...] file 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 Gender Identity Female 06/19/2020 1:01 PM CDT [...] on filedocumented in this encounter Care Teams Co Founder And Chief Strategy Officer Relationship Specialty Start Date End Date Melvi Coffey MD [address] [place], [place] [address] PCP - General 11/25/17 03/11/21 Navarro Richardson DO [address] [place], [place] [address] PCP - General Family Medicine 03/12/21 03/14/21 Unknown, Notinfile PCP - General 03/15/21 05/27/21 Navarro Richardson DO [address] [place], [place] [address] PCP - General Family Medicine 05/28/21 10/09/21 Miscellaneous, Not In File PCP - General 10/10/21 2 Miscellaneous, Not In File PCP - General 10/11/21 [facility] [address] [place] [address] PCP - General 01/22/22 05/01/22 Reggie Padilla MD [address] [place] [address] PCP - General Internal Medicine 05/02/22 05/05/23 [facility] [address] [place] [address] PCP - General 05/06/23 08/08/24 Alisha Moe DO [address] [address] PCP - General Family Medicine 08/09/24 10/11/24 Garrett Pierre MD 969 [facility] 110 [place] [address] PCP - General Internal Medicine 10/12/24 03/08/25 Reggie Perry MD [address] [place] [address] PCP - General Internal Medicine 03/09/25 Chas Osuna MD 5[address] [facility] 2300 [place] [address] Consulting Physician Cardiology 08/09/24 Frank Alvarado MD [address] [place] [address] Consulting Physician Nephrology 08/09/24 Margaret Brewster MD [address] [place] [address] Referring Physician Gastroenterology 08/09/24 documented as of this encounter
--- OUTSIDE RECORDS SUMMARY | 2025-06-15 14:30 | XMS_ITS | Encounter Summary ---
Author Organization [facility] Address [address] [place] [address] Phone Care Team Providers Care Relief Cook Name Role Phone Chas Osuna MD Unavailable [phone] Frank Alvarado MD Unavailabl e Margaret Brewster MD Unavailable [phone] Reggie Perry MD Primary Care Provider + Encounter Details Date Type Department Care Team (Late st Contact Info) Description 05/19/2025 Results Follow-Up [facility] Medicine Gastroenterology [address] [facility] Advanced Medicine 12th [place] [address] [place] [address] Margaret Brewster MD [address] [place] [address] Liver Elastography w/o Imaging [facility] (All Locations) Social History Tobacco Use Types Packs/Day Years [...] on file 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 Gender Identity Female 06/19/2020 1:01 PM CDT Sexual Orientation Straight 04/20/2019 8: 05 PM CDT documented as of this encounter Plan of Treatment Not on file documented as of this encounter Visit Diagnoses Not on filedocumented in this encounter Care Teams Relief Cook Relationship Specialty Start Date End Date Reggie Perry MD [address] [place] [address] PCP - General Internal Medicine 03/09/25 Chas Osuna MD [address] [facility] [address] [place] [address] Consulting Physician Cardiology 08/09/24 Frank Alvarado MD [address] [place] [address] Consulting Physician Nephrology 08/09/24 Margaret Brewster MD [address] [place] [address] Referring Physician Gastroenterology 08/09/24 documented as of this encounter
--- OUTSIDE RECORDS SUMMARY | 2025-06-15 14:30 | XMS_ITS | Encounter Summary ---
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 [address] [place] [address] PCP - General Family Medicine 08/09/24 10/11/24 Garrett Pierre MD [address] [facility] 110 [place] [address] PCP - General Internal Medicine 10/12/24 03/08/25 Reggie Perry MD [address] [place] [address] PCP - General Internal Medicine 03/09/25 Chas Osuna MD 5[address] [facility] 23[address] [place] [address] Consulting Physician Cardiology 08/09/24 Frank Alvarado MD [address] [place] [address] Consulting Physician Nephrology 08/09/24 Margaret Brewster MD [address] [place] [address] Referring Physician Gastroenterology 08/09/24 documented as of this encounter
--- OUTSIDE RECORDS SUMMARY | 2025-06-15 14:30 | XMS_ITS | Encounter Summary ---
Author Organization [facility] Address [address] [place] [address] Phone Care Team Providers Care Pot Builder Name Role Phone Melvi Coffey MD Primary Care Provider Richardson Navarro Trejo DO Primary Care Provider [phone] Unknown, Notinfile Primary Care Provider Unavail able Dylan Navarro Trejo DO Primary Care Provider [phone] Miscellaneous, Not In File Primary Care Provider Unavailable Miscellaneous, Not In File Primary Care Provider Unavailable [facility] Primary Care Provider [phone] Reggie Padilla MD Primary Care Provider +- [phone] [facility] Primary Care Provider +- [phone] Chas Osuna MD Unavailable [phone] Frank Alvarado MD Unavailabl e Margaret Brewster MD Unavailable + [phone] Alisha Moe DO Primary Care Provider + [phone] Garrett Pierre MD Primary Care Provi sherie [...] on file 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 Gender Identity Female 06/19/2020 1:01 PM CDT [...] on filedocumented in this encounter Care Teams Pot Builder Relationship Specialty Start Date End Date Melvi Coffey MD [address] [place], [place] [address] PCP - General 11/25/17 03/11/21 Navarro Richardson DO [address] [place], [place] [address] PCP - General Family Medicine 03/12/21 03/14/21 Unknown, Notinfile PCP - General 03/15/21 05/27/21 Navarro Richardson DO [address] [place], [place] [address] PCP - General Family Medicine 05/28/21 10/09/21 Miscellaneous, Not In File PCP - General 10/10/21 2 Miscellaneous, Not In File PCP - General 10/11/21 [facility] [address] [place] [address] PCP - General 01/22/22 05/01/22 Reggie Padilla MD [address] [place] [address] PCP - General Internal Medicine 05/02/22 05/05/23 [facility] [address] [place] [address] PCP - General 05/06/23 08/08/24 Alisha Moe DO [address] [address] PCP - General Family Medicine 08/09/24 10/11/24 Garrett Pierre MD 969 [facility] 110 [place] [address] PCP - General Internal Medicine 10/12/24 03/08/25 Reggie Perry MD [address] [place] [address] PCP - General Internal Medicine 03/09/25 Chas Osuna MD [address] [facility] [address] [place] [address] Consulting Physician Cardiology 08/09/24 Frank Alvarado MD [address] [place] [address] Consulting Physician Nephrology 08/09/24 Margaret Brewster MD [address] [place] [address] Referring Physician Gastroenterology 08/09/24 documented as of this encounter
--- OUTSIDE RECORDS SUMMARY | 2025-06-15 14:30 | XMS_ITS | Clinical Summary ---
Author Organization [facility] Address [address] [place] [address] Care Team Providers Care Branding Machine Operator Name Role Phone Khalif Adhikari MD Primary Care Provider Source Comments [facility],non-owned Affiliates and Associated Physician Practices is amultiple site organization consisting of ambulatory clinics and hospital sitesin [place], [place], [place] and [place]. This disclosure is being madepursuant to the Care Everywhere program and may not contain all information available regarding this patient. 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
--- OUTSIDE RECORDS SUMMARY | 2025-06-15 14:31 | XMS_ITS | Encounter Summary ---
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 Gender Identity Female 06/19/2020 1:01 PM CDT [...] on filedocumented in this encounter Care Teams Strap Sewer Relationship Specialty Start Date End Date Reggie Padilla MD [address] [place] [address] PCP - General Internal Medicine 05/02/22 05/05/23 [facility] [address] [place] [address] PCP - General 05/06/23 08/08/24 Alisha Moe DO [address] [facility] [address] [address] PCP - General Family Medicine 08/09/24 10/11/24 Garrett Pierre MD [address] [facility] [address] [place] [address] PCP - General Internal Medicine 10/12/24 03/08/25 Reggie Perry MD [address] [place] [address] PCP - General Internal Medicine 03/09/25 Chas Osuna MD [address] [place] [address] Consulting Physician Cardiology 08/09/24 Frank Alvarado MD [address] [place] [address] Consulting Physician Nephrology 08/09/24 Margaret Brewster MD [address] [place] [address] Referring Physician Gastroenterology 08/09/24 documented as of this encounter
--- OUTSIDE RECORDS SUMMARY | 2025-06-15 14:31 | XMS_ITS | Clinical Summary ---
Author Organization [facility] Address [address] [place] [address] Care Team Providers Care Senior Reliability Engineer Name Role Phone Garrett Pierre MD Primary Care Provider [phone] Allergies Active Allergy Reactions Criticality Noted Date Comments Morphine Nausea and Vomiting 07/04/2023 Penicillins Anaphylaxis High 11/26/2021 Promethazine Anaphylaxis High 11/26/2021 Sulfa Antibiotics Shortness of Breath High 2 Medications irbesartan (AVAPRO) 300 MG tablet Take 1 tablet (300 mg total) by mouth nightly at bedtime. Active levothyroxine (SYNTHROID) 88 MCG tablet Take 1 tablet (88 mcg total) by mouth every morning. Active estradiol (CLIMARA) 0.0375 MG/24HR Place 1 patch (0.0375 mg total) onto the skin once a week. Active esomeprazole (NEXIUM) 20 MG capsule Take 1 capsule (20 mg total) by mouth nightly. Active buPROPion (WELLBUTRIN) 100 MG tablet Take 1 tablet (100 mg total) by mouth 2 (two) times daily. 1/2 tablet in the morning and 1 tablet at night Active aspirin 81 MG chewable tablet Chew 1 tablet (81 mg total) by mouth daily. Active atorvastatin (LIPITOR) 20 MG tablet Take 1 tablet (20 mg total) by mouth nightly at bedtime. Active Fenofibrate 40 MG Tab Take 40 mg by mouth daily. Active Vitamin D3 (CHOLECALCIFERO L) 50 mcg tablet Take 1 tablet (50 mcg total) by mouth daily. Active acidophilus (FLORAJEN) capsule Take 1 capsule by mouth daily. 14 capsule Active Additional Information Patient not taking.Reported on 01/08/2024 fish oil (OMEGA-3 FATTY ACID) 1000 MG Cap capsule Take 1 capsule (1,000 mg total) by mouth 2 (two) times daily. Active Active Problems Problem Noted Date Diagnosed Date Arteriosclerosis of coronary artery 07/07/2023 [place] 07/07/2023 Overview (07/07/2023): pt given RX for carmol; continue to wear pads on area pt agrees w/ POC First degree heart block 07/07/2023 Stage 3 chronic kidney disease 07/07/2023 Nonalcoholic steatohepatitis (LIPSCOMB) 07/07/2023 Cellulitis 07/04/2023 Urinary incontinence 06/30/2023 Candidiasis of vagina 06/30/2023 Depression 06/30/2023 Familial hypertriglyceridemia 06/30/2023 Essential hematuria 06/30/2023 Chronic cystitis 06/30/2023 Calculus of gallbladder with out cholecystitis without obstruction 06/30/2023 Generalized anxiety disorder 06/30/2023 Overview (07/07/2023): wellbutrin renewed wellbutrin renewed Outside Source Comment: wellbutrin renewed Ganglion of hand 06/30/2023 Rheumatoid arthritis of hand 06/30/2023 Vitamin D deficiency 06/30/2023 Hypothyroidism 06/10/2023 Fatigue 03/25/2021 KIERRA (renal osteodystrophy) 02/09/2019 Hyperlipidemia 11/10/2017 Gastroesophageal reflux disease 12/26/2015 Focal segmental glomerulosclerosis 02/02/2013 Hypertension 12/29/2010 Immunizations Immunization Administration Dates Next Due Fluzone 6 Months+ Quad (0.5 mL Prefilled Syringe) 07/07/2023(Deferred: Patient/family declined) Social History Tobacco Use Types Packs/Day Years Used Date Smoking Tobacco: Never Smokeless Tobacco: Never Alcohol Use Standard Drinks/Week Comments Never 0 (1 standard drink = 0.6 oz pur e alcohol) Humiliation, Afraid, Rape, and Kick questionnair e Answer Date Recorded Within the last year, have y ou been afraid of your partner or ex-partner? No 07/05/2023 Within the last year, have y ou been humiliated or emotionally abused in other ways by your partner or ex-partner? No Within the last year, have y ou been kicked, hit, slapped, or otherwise physically hurt by your partner or ex-partner? No 07/05/2023 Within the last year, have y ou been raped or forced to have any kind of sexual activity by your partner or ex-partner? No 07/05/2023 Overall Financial Resource Strain (CARDIA) Answe r Date Recorded How hard is it for you to pa y for the very basics like food, housing, medical care, and heating? Not hard at all 07/05/2023 Hunger Vital Sign Answer Date Recorded Within the past 12 months, y ou worried that your food would run out before you got the money to buy more. Never true 07/05/20 23 Within the past 12 months, t he food you bought just didn't last and you didn't have money to get more. Never true 07/05/2023 PRAPARE - Transportation Answer Date Re corded In the past 12 months, has l ack of transportation kept you from medical appointments or from getting medications? No 11/2022 In the past 12 months, has l ack of transportation kept you from meetings, work, or from getting things needed for daily living? No 07/05/2023 Housing Stability Vital Sign Answer Cody e Recorded In the last 12 months, was t here a time when you were not able to pay the mortgage or rent on time? No 07/05/2023 In the last 12 months, how many places have you lived? 1 07/05/2023 In the last 12 months, was t here a time when you did not have a steady place to sleep or slept in a senior living (including now)? No 07/05/2023 Comments No Sex and Gender Information Value Date Recorded Sex Assigned at Female 12/01/2024 2:58 PM CDT Legal Sex Female 7:06 PM CDT Gender Identity Not on file Sexual Orientation Not on file Last Filed Vital Signs Vital Sign Reading Time Taken Comments Blood Pressure 121/67 12/01/2024 3:59 PM CDT Pulse 65 12/01/2024 3:59 PM CDT Temperature 36.8 C (98.2 F) 12/01/2024 2:48 PM CDT Respiratory Rate 22 12/01/2024 3:59 PM CDT Oxygen Saturation 99% 12/01/2024 3:59 PM CDT Inhaled Oxygen Concentration - - Weight 71.4 kg (157 lb 6.5 oz) 12/01/2024 2:48 P M CDT Height 157.5 cm (5' 2) 12/01/2024 2:48 PM CDT Body Mass Index 28.79 12/01/2024 2:48 PM CDT Plan of Treatment Health Maintenance Due Date Last Done Comments ASCVD LDL 1953 ASCVD Statin 1953 Hepatitis C 1971 Mammogram Screening 1993 RSV Immunization or 60+ Years (1 - Risk 60-74 years 1-dose series) 2013 Annual Medicare Wellness Visit 2018 Dexa Scan (General) 2018 COVID-19 Vaccine ( season) 2025 06/17/2022, 07/31/2021, 12/06/2020, Additional history exists Influenza Adult (#1) 2025 10/02/2024, 06/01/2024, 07/22/2023, Additional history exists DTaP, Tdap and Td Vaccines (3 - Td or Tdap) 09/30/2032 09/30/2022, 04/08/2016, 03/11/2000 Colorectal Cancer Screening Colonoscopy (10 Years) 01/19/2034 01/20/2024, 01/20/2024 Zoster Vaccines Completed 04/26/2019, 01/31, 09/14/2012 Pneumococcal Vaccine: 50+ Years Completed 08/03/2019, 07/28/2018 Meningococcal B Vaccine Aged Out No l onger eligible based on patient's age to complete this topic Meningococcal Vaccine Aged Out No ashley bhavya eligible based on patient's age to complete this topic RSV Immunizations Under 20 Months Aged Out No longer eligible based on patient's age to complete this topic Goals Goal Patient Goal Type Associated Problems Recent Progress Patient-Stated? Author Patient will return to prior living situation and remain independent in ADLs upon discharge from hospital Lifestyle Rosibel Ron RN Procedures Procedure Name Priority Date/Time Associated Diagnosis Comments COLONOSCOPY Routine 01/20/2024 10:15 AM CDT from Last 3 Months or Most Recently Relevant to Health Maintenance Insurance [facility] MEDICARE [facility] Advance Directives * Full Code (Latest Code Status on File) Date Activated Date Inactivated Comments 07/04/2023 11:12 PM 07/07/2023 12:56 PM Care Teams Senior Reliability Engineer Relationship Specialty Start Date End Date Garrett Pierre MD [address] [place] [address] PCP - General INTERNAL MEDICINE 12/01/24
--- OUTSIDE RECORDS SUMMARY | 2025-06-15 14:31 | XMS_ITS | Encounter Summary ---
Author Organization [facility] Address [address] [place] [address] Phone Care Team Providers Care Log Washer Name Role Phone Miscellaneous, Not In File Primary Care Provider Unavailable [facility] Primary Care Provider [phone] Reggie Padilla MD Primary Care Provider [phone] [facility] Primary Care Provider [phone] Chas Osuna MD Unavailable [phone] Frank Alvarado MD Unavailabl e Margaret Brewster MD Unavailable [phone] Alisha Moe DO Primary Care Provider [phone] Garrett Pierre MD Primary Care Provi sherie [...] on file Legal 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 Gender Identity Female 06/19/2020 1:01 PM CDT [...] on filedocumented in this encounter Care Teams Log Washer Relationship Specialty Start Date End Date Miscellaneous, Not In File PCP - General 10/11/21 [facility] [address] [place] [address] PCP - General 01/22/22 05/01/22 Reggie Padilla MD [address] [place] [address] PCP - General Internal Medicine 05/02/22 05/05/23 [facility] [address] [place] [address] PCP - General 05/06/23 08/08/24 Alisha Moe DO [address] [place] [id number] PCP - General Family Medicine 08/09/24 10/11/24 Garrett Pierre MD [address] [place] [address] PCP - General Internal Medicine 10/12/24 03/08/25 Reggie Perry MD [address] [place] [address] PCP - General Internal Medicine 03/09/25 Chas Osuna MD [address] [place] [address] Consulting Physician Cardiology 08/09/24 Frank Alvarado MD [address] [place] [address] Consulting Physician Nephrology 08/09/24 Margaret Brewster MD [address] [place] [address] Referring Physician Gastroenterology 08/09/24 documented as of this encounter
--- OUTSIDE RECORDS SUMMARY | 2025-06-15 14:31 | XMS_ITS | Clinical Summary ---
Author Organization [facility] [place] [facility] [place] Address [address] [facility] [place] [address] Care Team Providers Care Vice President Global Digital Marketing Name Role Phone Chas Osuna MD Unavailable [phone] Frank Alvarado MD Unavailabl e Margaret Brewster MD Unavailable [phone] Reggie Perry MD Primary Care Provider + [...] (1,000 Units total) by mouth every morning 3 Active levothyroxine (SYNTHROID) 88 mcg tablet materials branch chief before breakfast 2 Active Climara 0.0375 mg/[address] 1 patch on the skin once a week 2 Active azelastine (ASTELIN) 137 mcg (0.1 %) nasal spray Administer 1 spray into each nostril 2 (two) times a day Use in each nostril as directed 30 mL 3 5 Active evolocumab (Repatha SureClick) 140 mg/mL pen injector ADMINISTER 1 ML(140 MG) UNDER THE SKIN EVERY 14 DAYS 6 mL 3 5 Active diclofenac sodium (VOLTAREN) 1 % gel Apply 4 g topically 4 (four) times a day 200 g 5 02/02/20 Active Additional Information Patient not taking.Reported on 06/14/2025 aspirin 81 mg enteric coated tablet TAKE 1 TABLET BY MOUTH DAILY 90 tablet 3 5 Active irbesartan (AVAPRO) 300 mg tabletIndication s:Focal segmental glomeruloscleros is,Essential hypertension Take 1 tablet (300 mg total) by mouth daily 90 tablet 2 5 02/25/20 26 Active alpha lipoic acid 200 mg capsule Take 200 mg by mouth daily Active fluticasone propionate (FLONASE) 50 mcg/actuation nasal sprayIndications :Non-seasonal allergic rhinitis due to pollen Administer 2 sprays into each nostril daily 5 each 5 5 Active Additional Information Patient not taking.Reported on 06/14/2025 spironolactone (ALDACTONE) 25 mg tablet Take 1 tablet (25 mg total) by mouth daily 30 tablet 11 5 03/29/20 26 Active buPROPion (Wellbutrin) 100 mg tabletIndication s:Anxiety with Depression Take 1 tablet (100 mg total) by mouth 2 (two) times a day 180 tablet 1 5 Active icosapent ethyL (VASCEPA) 1 gram capsule TAKE 2 CAPSULES(2 GRAMS) BY MOUTH TWICE DAILY 360 capsule 3 5 Active azithromycin (ZITHROMAX) 250 mg tabletIndication s:Acute bronchitis, unspecified organism Take 2 tablets the first day, then 1 tablet daily for 4 days. 6 tablet 5 Active benzonatate (TESSALON) 100 mg capsuleIndicatio ns:Cough Take 1-2 caps every 8 hours as needed 30 capsule Active albuterol HFA (ProAir HFA) 90 mcg/actuation inhalerIndicatio ns:Acute bronchitis, unspecified organism Inhale 2 puffs every 4 (four) hours as needed for wheezing or shortness of breath for up to 15 days 8.5 g 06/29/20 25 Active Active Problems Problem Noted Date Diagnosed Date Acute bronchitis 06/14/2025 Assessment & Plan (06/14/2025 9:43 AM CDT): URI onset 3 weeks ago, expectorant changed color to green and brown one-week ago. Will treat with Z-Gaetano and benzonatate, for shortness of breaths albuterol as needed. Due to more profound generalized malaise, will check chest x-ray to rule out pneumonia. No acute respiratory distress, pulse ox 98%. 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 Stable on Repatha. Assessment & Plan (12/08/2024 3:34 PM CDT): Non flow limiting disease on [facility]. Stress/rest MPI from 11/15/2024 shows intact LVSF with small reversible wall motion abnormality unchanged from last study Continue GDMT Assessment & Plan (11/19/2024 2:28 PM CDT): Non flow limiting disease on [facility]. Stress/rest MPI from 11/15/2024 shows intact LVSF [...] bupropion Assessment & Plan (08/09/2024 1:42 PM LACE SEWER): Stable. Cont. Current prescription medications. Essential hematuria 06/30/2023 Generalized anxiety disorder 06/30/2023 Assessment & Plan (08/09/2024 1:42 PM LACE SEWER): Clinically improved, continue current prescription medications. History of shingles 06/30/2023 Overview (06/30/2023): Famvir 500mg tid for 7 days. Pictures and information given from CLINICAL DERMATOLOGY, ezio Jensen. Hyperopia 06/30/2023 Hypothyroidism 06/30/2023 Overview (08/09/2024): Followed by endocrinology. Assessment & Plan (03/07/2025 7:29 AM CDT): Stable on levothyroxine. Managed by endocrinology Assessment & Plan (08/09/2024 1:10 PM LACE SEWER): Stable. Cont. Current prescription medications, levothyroxine. Managed [...] COMPARISON -- PT HAS APPT WITH CIVILIAN TECHNICAL SUPPORT MANAGER FOR REVIEW. DIGITAL HEARING AIDS RECOMMENDED [...] 06/30/2023 Assessment & Plan (08/09/2024 1:43 PM LACE SEWER): Offered to refer to urology. Patient reports that she has one, but does not have their name. She will call us back and let us know the name. Encouraged follow-up with Urology. Localized, primary osteoarthritis of hand 2022 Overview (06/30/2023): arethavocet renewed Knee osteoarthritis 03/24/2021 Erosive osteoarthritis 03/24/2021 [...] ARB Assessment & Plan (08/09/2024 1:42 PM LACE SEWER): Blood pressure is at goal of less than 140/90, continue current prescription medications, Avapro. Patient's blood pressure is managed by her winter intern. Stage 3a chronic kidney disease 12/29/2010 Assessment [...] irbesartan Assessment & Plan (08/09/2024 1:42 PM LACE SEWER): Stable, continue Avapro. Followed by Nephrology. Resolved Problems Problem Noted Date Diagnosed Date Resolved Date Osteoarthritis of left hip 02/01/2025 0 03/09/2025 Hypertension, essential 11/19/2024 07/0 03/2025 Assessment & Plan (11/19/2024 2:30 PM CDT): Normotensive on irbesartan Continue present management Hypertriglyceridemia 11/19/2024 07/07/2 025 Assessment & Plan (11/19/2024 2:31 PM CDT): Vascepa was recently titrated by Dr. Osuna for TG of 266 on 09/2024 FLP Abdominal pain 06/30/2023 08/09/2024 Bladder pain 06/30/2023 08/09/2024 Abnormal electrocardiogram 06/30/2023 1 10/10/2023 Abnormal findings on diagnos tic imaging of breast 06/30/2023 08/09/2024 Ankle edema 06/30/2023 08/09/2024 Candidiasis of vagina 06/30/20232023 Chronic maxillary sinusitis 06/30/2023 08/09/2024 [place] 06/30/2023 08/09/2024 Overview (06/30/2023): pt given RX [...] (05/02/2021): Added automatically from request for surgery [id number] Fatigue 03/25/2021 08/09/2024 Gallstones 04/27/2019 08/09/2024 Stage 3 chronic kidney disease 11/14/2015 08/09/2024 SOB (shortness of breath) Encounters Date Type Department Care Team Description 06/15/2025 Results Follow-Up [facility] Medical [facility] Primary [facility] [address] [place] [address] Caro Mallory PA XR Chest Pa Lateral 2 Views 06/14/2025 9:53 AM CDT - 06/14/2025 11:59 PM CDT Hospital Encounter [facility] Imaging [address] [place] [address] Acute bronchitis, unspecified organism Discharge Disposition: Discharge to home or self care 06/14/2025 8:30 AM CDT Office Visit [facility] Medical [facility] Primary Care [address] [place] [address] Caro Mallory PA Acute bronchitis, unspecified organism (Primary Dx) 06/09/2025 9:23 AM CDT - 06/09/2025 11:59 PM CDT Hospital Encounter [facility] Lab [address] [place] [address] Stage 3a chronic kidney disease (HCC); Chronic kidney disease, unspecified CKD stage; Benign hypertension with CKD (chronic kidney disease) stage III (HCC); Essential hypertension; Focal segmental glomerulosclerosis; Persistent proteinuria; KIERRA (renal osteodystrophy) Discharge Disposition: Discharge to home or self care 06/09/2025 Results Follow-Up [facility] [address] [place] [address] [place] [address] Frank Alvarado MD Protein, urine, 24 hour 06/01/2025 Telephone [facility] [address] [place] [address] [place] [address] Juliann Viera RN 05/23/2025 Telephone [facility] [address] [place] [address] [place] [address] Juliann Viera RN 05/23/2025 Orders Only [facility] [address] [place] [address] [place] [address] Frank Alvarado MD Stage 3a chronic kidney disease (HCC) (Primary Dx); Chronic kidney disease, unspecified CKD stage; Benign hypertension with CKD (chronic kidney disease) stage III (HCC); Essential hypertension; Focal segmental glomerulosclerosis; Persistent proteinuria; KIERRA (renal osteodystrophy) 05/19/2025 11:20 AM CDT Office Visit [facility] [address] [place] [address] [place] [address] [place] [address] Margaret Brewster MD Hepatic fibrosis, advanced fibrosis (Primary Dx) 05/19/2025 11:00 AM CDT Procedure visit [facility] [address] [place] [address] [place] [address] [place] [address] Hepatic fibrosis, advanced fibrosis 05/19/2025 9:51 AM CDT - 05/19/2025 11:59 PM CDT Hospital Encounter [facility] [address] [place] [address] Hepatic fibrosis, advanced fibrosis Discharge Disposition: Discharge to home or self care 05/19/2025 Results Follow-Up [facility] [address] [facility] 12th [place] [address] [place] [address] Margaret Brewster MD Liver Elastography w/o Imaging W/I&R -[facility] (All Locations) 05/16/2025 9:20 AM CDT Lab [facility] [address] [place] [address] Stage 3a chronic kidney disease (HCC) 05/16/2025 Telephone [facility] [address] [facility] 5th [place] [address] [place] [address] Nisa Blue 03/29/2025 Orders Only [facility] [address] [facility] Medical Office Building [address] [place] [phone] Frank Alvarado MD Stage 3a chronic kidney disease (HCC) (Primary Dx) 03/28/2025 Orders Only [facility] [address] [facility] 5th [place] [address] [place] [address] Frank Alvarado MD 03/25/2025 Telephone [facility] [address] [facility] 5th [place] [address] [place] [address] Frank Alvarado MD Keendia PA from Last 3 Months Immunizations Immunization Administration Dates Next Due Hep A, Adult 10/28/2019,04/26/2019 Hep B Vaccine 02/25/2019,09/11/2018,07/28/2018 Influenza, Quadrivalent, Spl it, Preservative Free, Intramuscular 07/02/2021,08/03/2019,07/28/2018 Influenza, Trivalent, Adjuva nted, Intramuscular 10/02/2024 Influenza, Trivalent, Preser vative Free, Intramuscular 09/04/2016,09/14/2012 Influenza, Unspecified 06/14/2025(Deferr ed: Patient decision),06/01/2024,07/22/2023,2021,09/08/2020 Moderna SARS-CoV-2 Monovalen t Vaccination (12+ YRS) 12/06/2020,11/08/2020 Pneumococcal Conjugate PCV 13 07/28/2018 Pneumococcal Polysaccharide PPV23 08/03/2019 Sars-CoV-2, Unspecified 03/09/2025(Deferred: Pat ient Refused) Sars-cov-2 Covid-19 Mrna, Bi valent, Original/omicron Ba.1 06/17/2022 Td, adsorbed 03/11/2000 Tdap 09/30/2022,04/08/2016 ZOSTER LIVE 09/14/2012 ZOSTER Recombinant 04/26/2019,02/25/2019 Surgical History Surgery Date Site/Laterality Comments MT TOTAL ABDOMINAL HYSTERECT W/WO RMVL TUBE OVARY Hysterectomy - (Added by TW Conv) ABSCESS DRAINAGE Incision And Drainage Of Skin Abscess Back - (Added by TW Conv) MT EXC CYST/ABERRANT BREAST TISSUE OPEN 1/> LESION Breast Surgery Lumpectomy - (Added by TW Conv) BLADDER SURGERY Bladder Surgery - (Added by TW Conv) WRIST SURGERY Wrist Surgery - (Added by TW Conv) CATARACT EXTRACTION Cataract Surgery - (Added by TW Conv) MT ESOPHAGOGASTRODUODENOSCOP Y TRANSORAL DIAGNOSTIC Diagnostic Esophagogastroduodenoscopy - (Added by TW Conv) MT COLONOSCOPY FLX DX W/MARCO J SPEC WHEN PFRMD Colonoscopy (Fiberoptic) - (Added by TW Conv) MT CORRJ HLX VLGS BNCTY SESM DC W/DOUBLE [...] Mother Edita Dimas Heart disease Mother Edita [place] Hypertension Mother Edita Dim[place] Family history of hypertension - (Added by TW Conv) Ovarian cancer Paternal Grandmother age u nknown Relation Name Status Comments Brother 1 Brother 2 Father Tasneem Dimas Mother Edita Dimas Paternal Grandmother Social History Tobacco Use Types Packs/Day Years Used Date Smoking Tobacco: Never Passive Smoke Exposure: Never Smokeless Tobacco: Never Tobacco Cessation:Counseling Given: Not Answered Alcohol Use Standard Drinks/Week Comments Never 0 [...] on file Legal Sex Female 10:14 PM LACE SEWER Gender Identity Female 06/19/2020 1:01 PM CDT [...] Mass Index 28.53 06/14/2025 8:33 AM CDT Plan of Treatment Health Maintenance Due Date Last Done Comments Hepatitis C Screening 1955 Covid-19 Vaccine (2024- 6 season) 2025 06/17/2022, 07/31/2021, 12/06/2020, Additional history exists Influenza Vaccine (#1) 2025 , 06/01/2024, 07/22/2023, Additional history exists Well Visit 65+ 11/19/2025 11/19/2024 Fall Risk Assessment 03/09/2026 03/09/2025, 11/19/2024, 05/09/2021 Breast Cancer Screening-Mammogram 05/11/2026 05/11/2025, 03/09/2025, 03/09/2024 Depression Screening 06/14/2026 06/14/2025, 03/09/2025, 11/19/2024 Osteoporosis Screening-Bone Density Scan 02/21/2027 02/21/2025, 03/12/2023 DTaP/Tdap/Td Vaccine (3 - Td or Tdap) 09/30/2032 09/30/2022, 04/08/2016, 03/11/2000 Colon Cancer Screening-Colonoscopy 01/19/20342023 Zoster Vaccine Completed 04/26/2019, 01/31, 09/14/2012 Pneumococcal vaccine 65+ Completed 08/03/2019, 07/03 Procedures Procedure Name Priority Date/Time Associated Diagnosis Comments XR CHEST PA LATERAL 2 VIEWS Schedule Routine, Read Routine (OP Routine) 06/14/2025 10:07 AM CDT Acute bronchitis, unspecified organism CREATININE, URINE, 24 HOUR RESULT Routine 06/09/2025 8:00 AM CDT Stage 3a chronic kidney disease (HCC) Chronic kidney disease, unspecified CKD stage Benign hypertension with CKD (chronic kidney disease) stage III (HCC) Essential hypertension Focal segmental glomerulosclerosis Persistent proteinuria KIERRA (renal osteodystrophy) VOLUME AND PERIOD, URINE, 24 HOUR Routine 06/09/2025 8:00 AM CDT Stage 3a chronic kidney disease (HCC) Chronic kidney disease, unspecified CKD stage Benign hypertension with CKD (chronic kidney disease) stage III (HCC) Essential hypertension Focal segmental glomerulosclerosis Persistent proteinuria KIERRA (renal osteodystrophy) PROTEIN, URINE, 24 HOUR RESULT Routine 06/09/2025 8:00 AM CDT Stage 3a chronic kidney disease (HCC) Chronic kidney disease, unspecified CKD stage Benign hypertension with CKD (chronic kidney disease) stage III (HCC) Essential hypertension Focal segmental glomerulosclerosis Persistent proteinuria KIERRA (renal osteodystrophy) PROTEIN, URINE, 24 HOUR Routine 06/09/2025 8:00 AM CDT Stage 3a chronic kidney disease (HCC) Chronic kidney disease, unspecified CKD stage Benign hypertension with CKD (chronic kidney disease) stage III (HCC) Essential hypertension Focal segmental glomerulosclerosis Persistent proteinuria KIERRA (renal osteodystrophy) LIVER ELASTOGRAPHY W/O IMAGING W/I&R Routine 05/19/2025 11:17 AM CDT Hepatic fibrosis, advanced fibrosis US ABDOMEN LIMITED Schedule Routine, Read Routine (OP Routine) 05/19/2025 10:34 AM CDT Hepatic fibrosis, advanced fibrosis EGFR Routine 05/16/2025 9:38 AM CDT Stage 3a chronic kidney disease (HCC) COMPREHENSIVE METABOLIC PANEL Routine 05/16/2025 9:38 AM CDT Stage 3a chronic kidney disease (HCC) MAMMOGRAPHY Schedule Routine, Read Routine (OP Routine) 05/11/2025 1:30 PM CDT DEXA AXIAL SKELETON BONE DENSITY 1 OR MORE SITES Schedule Routine, Read Routine (OP Routine) 02/21/2025 1:34 PM CDT from Last 3 Months or Most Recently Relevant to Health Maintenance Results * XR Chest Pa Lateral 2 [...] Donnie Doyle M.D. RB: ALEE Report ID: [id number] Reading Location: [id number] Procedure Note Donnie Doyle MD - 06/15/2025 [...] Donnie Doyle M.D. RB: ALEE Report ID: [id number] Reading Location: [place] [address] Caro DRIVER IMG XR PROCEDURES Fin al Result * (ABNORMAL) Protein, urine, 24 hour (06/09/2025 8:00 AM CDT) Protein, 24 hr, ur 604(H) 0 - 150 mg/24H Comment:Testing performed by : [address] [address] Urine 06/09/2025 8:00 AM CDT 06/09/2025 10:11 AM CDT Frank Page MD LAB URINE O RDERABLES Final Result Performing Organization Address City/[facility] Co de Phone Number [address] [place] [address] * Volume and period, urine, 24 hour (06/09/2025 8:00 AM CDT) Volume, ur 1,950 mL Comment:Testing performed by : [address] [address] Period, Urine Collection 1,440 min VIDHI Comment:Testing performed by : [address] [address] Urine 06/09/2025 8:00 AM CDT 06/09/2025 10:11 AM CDT Frank Page MD LAB URINE O RDERABLES Final Result Performing Organization Address [facility]/ZIP Co de Phone Number [address] [place] [address] * Creatinine, urine, 24 hour (06/09/2025 8:00 AM CDT) Creatinine, 24 hr, ur 0.9 0.6 - 1.5 g/24H Comment:Testing performed by : [facility], [address] [place] [address], [place]., [address] Urine 06/09/2025 8:00 AM CDT 06/09/2025 10:11 AM CDT us Frank Page MD LAB URINE O RDERABLES Final Result [facility] [address] [facility] Department [place] [address] * Liver Elastography w/o Imaging W/I&R -[facility] (All Locations) (05/19/2025 11:17 AM CDT) Anatomical Region Laterality Modality Other us Margaret Brewster MD GI PROCEDURE ORDERAB LES Final Result * US Abdomen Limited (05/19/2025 10:34 AM CDT) Anatomical Region Laterality Modality Abdomen N/A Ultrasound 05/19/2025 10:4 4 AM CDT Impressions 05/19/2025 11:11 AM CDT 1. Mild diffuse hepatic steatosis. 2. US LI-RADS Screening/Surveillance Category: US 1 - Negative. 3. Visualization Score: A: No or minimal limitations in liver visualization. US LI-RADS 2023 REFERENCE: US Category: US-1 Negative: No ultrasound evidence of hepatocellular carcinoma (HCC). US-2 Subthreshold: Observation<10 mm in diameter, not definitely benign. US-3 Positive: Observation detected that may warrant multi-phase contrast-enhanced imaging. Observation >/= 10 mm in diameter, not definitely benign, including areas of parenchymal distortion OR new thrombus in vein. Visualization Score: A. No or minimal limitations: Limitations, if any, are unlikely to meaningfully affect sensitivity. The liver is homogenous or minimally heterogenous with minimal beam attenuation or shadowing, and is visualized in near entirety. B. Moderate limitations: Limitations may obscure small masses. The liver is moderately heterogenous with moderate beam attenuation or shadowing, and some portions of the liver or diaphragm are not visualized. C. Severe limitations: Limitations significantly lower sensitivity for focal liver lesions. The liver is severely heterogeneous with severe beam attenuation or shadowing, and the majority (>50%) of the liver or diaphragm is not visualized. Consider alternative surveillance imaging modality depending on risk factors. Dictated by: Gary Patel M.D. The radiology attending physician has personally reviewed this study, and had reviewed and/or edited this written report and agrees with it. Electronically signed by: Jonna Francois MD Narrative 05/19/2025 11:11 AM CDT EXAMINATION: LIVER SONOGRAM HISTORY: 70-year-old female with history of fatty liver disease and hepatic fibrosis. Surveillance ultrasound in patient at high risk for hepatocellular carcinoma. COMPARISON: Multiple prior ultrasounds most recently 05/19/2024 FINDINGS: Liver: Visualization Score: A: No or minimal limitations in liver visualization. Morphology/Parenchyma/contour: The liver is normal in size. The echotexture is normal. The echogenicity is increased. There is no surface nodularity. Liver observations: Unchanged hyperechoic focus within hepatic segment 6 measuring 4 x 4 by 4 mm. Unchanged hepatic cyst within hepatic segment 4B which measures up to 1.0 cm. Small cyst within hepatic segment 2 appears unchanged from prior exam and measures up to 5 mm. Multiple hyperechoic foci with posterior acoustic shadowing corresponding to calcified granulomas when compared to CT chest dated 02/21/2023. No new hepatic lesion. Ascites: No ascites. Procedure Note Jonna Francois MD - 05/19/2025 EXAMINATION: LIVER SONOGRAM HISTORY: 70-year-old female with history of fatty liver disease and hepatic fibrosis. Surveillance ultrasound in patient at high risk for hepatocellular carcinoma. COMPARISON: Multiple prior ultrasounds most recently 05/19/2024 FINDINGS: Liver: Visualization Score: A: No or minimal limitations in liver visualization. Morphology/Parenchyma/contour: The liver is normal in size. The echotexture is normal. The echogenicity is increased. There is no surface nodularity. Liver observations: Unchanged hyperechoic focus within hepatic segment 6 measuring 4 x 4 by 4 mm. Unchanged hepatic cyst within hepatic segment 4B which measures up to 1.0 cm. Small cyst within hepatic segment 2 appears unchanged from prior exam and measures up to 5 mm. Multiple hyperechoic foci with posterior acoustic shadowing corresponding to calcified granulomas when compared to CT chest dated 02/21/2023. No new hepatic lesion. Ascites: No ascites. IMPRESSION: 1. Mild diffuse hepatic steatosis. 2. US LI-RADS Screening/Surveillance Category: US 1 - Negative. 3. Visualization Score: A: No or minimal limitations in liver visualization. US LI-RADS 2023 REFERENCE: US Category: US-1 Negative: No ultrasound evidence of hepatocellular carcinoma (HCC). US-2 Subthreshold: Observation<10 mm in diameter, not definitely benign. US-3 Positive: Observation detected that may warrant multi-phase contrast-enhanced imaging. Observation >/= 10 mm in diameter, not definitely benign, including areas of parenchymal distortion OR new thrombus in vein. Visualization Score: A. No or minimal limitations: Limitations, if any, are unlikely to meaningfully affect sensitivity. The liver is homogenous or minimally heterogenous with minimal beam attenuation or shadowing, and is visualized in near entirety. B. Moderate limitations: Limitations may obscure small masses. The liver is moderately heterogenous with moderate beam attenuation or shadowing, and some portions of the liver or diaphragm are not visualized. C. Severe limitations: Limitations significantly lower sensitivity for focal liver lesions. The liver is severely heterogeneous with severe beam attenuation or shadowing, and the majority (>50%) of the liver or diaphragm is not visualized. Consider alternative surveillance imaging modality depending on risk factors. Dictated by: Gary Patel M.D. The radiology attending physician has personally reviewed this study, and had reviewed and/or edited this written report and agrees with it. Electronically signed by: Jonna Francois MD us Margaret Brewster MD IMG US PROCEDURES Fi nal Result * (ABNORMAL) eGFR (05/16/2025 9:38 AM CDT) eGFR 34(L) >=60 mL/min/1. 73 m2 Comment: Interpretive Data [...] of Race in Diagnosing Kidney Disease, JASN 2020). The CKD-EPI equation should not be used for patients with unstable renal function and has not been validated in children and those over 70. Current interpretive data was last reviewed 2021. Testing performed by: [address] [address] Blood 05/16/2025 9:38 AM CDT 05/16/2025 9:45 AM CDT us Frank Page MD LAB BLOOD O RDERABLES Final Result [facility] [address] Department [place] [address] * (ABNORMAL) Comprehensive metabolic panel (05/16/2025 9:38 AM CDT) Sodium 143 135 - 145 mmol/L Comment:Testing performed by : [address] [address] Potassium, pl 5.0(H) 3.3 - 4.9 mmol/L VIDHI SAMS Comment:Testing performed by : [address] [address] Chloride 108 97 - 110 mmol/L VIDHI Comment:Testing performed by : [address] [address] CO2 24 22 - 32 mmol/L VIDHI SAMS Comment:Testing performed by : [address] [address] Anion gap 11 2 - 15 mmol/L VIDHI SAMS Comment:Testing performed by : [address] [address] BUN 31(H) 6 - 25 mg/dL VIDHI SAMS Comment:Testing performed by : [address] [address] Creatinine 1.60(H) 0.60 - 1.10 mg/dL VIDHI Comment:Testing performed by : [address] [address] Glucose 112 70 - 199 mg/dL VIDHI Comment: Interpretive Data Fasting glucose >/= 126 [...] was last revised 2022. Testing performed by: [address] [address] Calcium 9.7 8.5 - 10.3 mg/dL VIDHI Comment:Testing performed by : [address] [address] Bilirubin, total 0.5 0.1 - 1.2 mg/dL VIDHI Comment:Testing performed by : [address] [address] Protein, pl 7.0 6.5 - 8.5 g/dL VIDHI Comment:Testing performed by : [address] [address] Albumin 4.1 3.5 - 5.0 g/dL VIDHI Comment:Testing performed by : [address] [address] Alk phos 70 40 - 130 Units/L VIDHI Comment:Testing performed by : [address] [address] ALT 22 7 - 45 Units/L VIDHI Comment:Testing performed by : [address] [address] AST 22 10 - 45 Units/L VIDHI Comment:Testing performed by : [address] [address] Blood 05/16/2025 9:38 AM CDT 05/16/2025 9:45 AM CDT Frank Page MD LAB BLOOD O RDERABLES Final Result VIDHI [address] [facility] Department of [address] [place] [address] * MAMMOGRAPHY (05/11/2025 1:30 PM CDT) Anatomical Region Laterality Modality Breast Mammography Historical Provider IMAdi MAMMO PROCEDURES Supriya l Result * Dexa Axial Skeleton Bone Density 1 or 2 Site (02/21/2025 1:34 PM CDT) Anatomical Region Laterality Modality Body N/A Radiographic Enedina ging Historical Provider MD COLLAZO DXA PROCEDURES Final Result from Last 3 Months or Most Recently Relevant to Health Maintenance Insurance MEDICARE FOR [employer] [facility] FEDERAL Member Subscriber Plan / Payer (Ef fective 2015-Present) Name:Sally Blount Relation to Subscriber:Spouse Name:SALLY BLOUNT Date of :1953 (Home) [address] [place] [address] Payer ID:[id number] (NAIC) Group ID:[id number] Type:[employer] Address: [facility] [address] [place] [address] MEDICARE [facility] Address: [address] [address] [place] [address] [facility] FEDERAL Member Subscriber Plan / Payer (Ef fective 2015-Present) Name:Sally Blount Relation to Subscriber:Spouse Name:Agus Blount Date of :1952 Address: [address] [place] [address] Payer ID:[id number] (NAIC) Group ID:[id number] Type:[employer] Address: [address] FOR LIFE Advance Directives For more information, please contact: [phone] * Full Code (Latest Code Status on File) Date Activated Date Inactivated Comments 05/09/2021 2:18 PM 05/09/2021 11:15 PM * Full Code Date Activated Date Inactivated Comments 06/01/2019 1:50 PM 06/02/2019 7:07 PM Care Teams Vice President Global Digital Marketing Relationship Specialty Start Date End Date Reggie Perry MD [address] [place] [address] PCP - General Internal Medicine 03/09/25 Chas Osuna MD [address] [place] [address] Consulting Physician Cardiology 08/09/24 Frank Alvarado MD [address] [place] [address] Consulting Physician Nephrology 08/09/24 Margaret Brewster MD [address] [place] [address] Referring Physician Gastroenterology 08/09/24
--- OUTSIDE RECORDS SUMMARY | 2025-06-15 14:31 | XMS_ITS | Encounter Summary ---
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 [place] [facility] [address] [place] [address] PCP - General 05/06/23 08/08/24 Alisha Moe DO [address] [address] PCP - General Family Medicine 08/09/24 10/11/24 Garrett Pierre MD [address] [facility] [address] [place] [address] PCP - General Internal Medicine 10/12/24 03/08/25 Reggie Perry MD [address] [place] [address] PCP - General Internal Medicine 03/09/25 Chas Osuna MD [address] [facility] [address] [place] [address] Consulting Physician Cardiology 08/09/24 Frank Alvarado MD [address] [place] [address] Consulting Physician Nephrology 08/09/24 Margaret Brewster MD [address] [place] [address] Referring Physician Gastroenterology 08/09/24 documented as of this encounter
--- OUTSIDE RECORDS SUMMARY | 2025-06-15 14:31 | XMS_ITS | Encounter Summary ---
Author Organization [facility] Address [address] [place] [address] Phone Care Team Providers Care Radiator Core Tester Name Role Phone Melvi Coffey MD Primary Care Provider Kayla Hall MD Primary Care Provider [phone] Melvi Coffey MD Primary Care Provider Navarro Richardson DO Primary Care Provider [phone] Unknown, Notinfile Primary Care Provider Unavail able Navarro Richardson DO Primary Care Provider [phone] Miscellaneous, Not In File Primary Care Provider Unavailable Miscellaneous, Not In File Primary Care Provider Unavailable [facility] Primary Care Provider [phone] Reggie Padilla MD Primary Care Provider [phone] [facility] Primary Care Provider [phone] Chas Osuna MD Unavailable [phone] Frank Alvarado MD Unavailabl e Margaret Brewster MD Unavailable [phone]- [phone] Alisha Moe DO Primary Care Provider [phone] Garrett Pierre MD Primary Care Provi sherie [...] on file 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 Gender Identity Female 06/19/2020 1:01 PM CDT [...] on filedocumented in this encounter Care Teams Radiator Core Tester Relationship Specialty Start Date End Date Melvi Coffey MD [address] [place] [address] PCP - General 07/07/17 11/09/17 [place] [address] [facility] [address] [place], [place] [address] PCP - General 11/10/17 11/24/17 Melvi Coffey MD [address] [place] [address] PCP - General 11/25/17 03/11/21 [place] [address] [facility] [address] [place] [address] PCP - General Family Medicine 03/12/21 03/14/21 Unknown, Notinfile PCP - General 03/15/21 05/27/21 Navarro Richardson Maya [address] [place] [place] [address] PCP - General Family Medicine 05/28/21 10/09/21 Miscellaneous, Not In File PCP - General 10/10/21 2 Miscellaneous, Not In File PCP - General 10/11/21 [facility] [address] [place] [address] PCP - General 01/22/22 05/01/22 Reggie Padilla MD [address] [place] [address] PCP - General Internal Medicine 05/02/22 05/05/23 [facility] [address] [place] [address] PCP - General 05/06/23 08/08/24 Alisha Moe DO [address] [facility] [address] [address] PCP - General Family Medicine 08/09/24 10/11/24 Garrett Pierre MD [address] [place] [address] PCP - General Internal Medicine 10/12/24 03/08/25 Reggie Perry MD [address] [place] [address] PCP - General Internal Medicine 03/09/25 Chas Osuna MD [address] [place] [address] Consulting Physician Cardiology 08/09/24 Frank Alvarado MD [address] [place] [address] Consulting Physician Nephrology 08/09/24 Margaret Brewster MD [address] [place] [address] Referring Physician Gastroenterology 08/09/24 documented as of this encounter
--- OUTSIDE RECORDS SUMMARY | 2025-06-15 14:31 | XMS_ITS | Encounter Summary ---
Author Organization [facility] Address [address] [place] [address] Phone Care Team Providers Care Door Assembler Name Role Phone Melvi Coffey MD Primary Care Provider Richardson Navarro Trejo DO Primary Care Provider [phone] Unknown, Notinfile Primary Care Provider Unavail able Dylan Navarro Trejo DO Primary Care Provider [phone] Miscellaneous, Not In File Primary Care Provider Unavailable Miscellaneous, Not In File Primary Care Provider Unavailable [facility] Primary Care Provider [phone] Reggie Padilla MD Primary Care Provider [phone] [facility] Primary Care Provider [phone] Chas Osuna MD Unavailable [phone] Frank Alvarado MD Unavailabl e Margaret Brewster MD Unavailable + [phone] Alisha Moe DO Primary Care Provider + [phone] Garrett Pierre MD Primary Care Provi sherie [...] on file 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 Gender Identity Female 06/19/2020 1:01 PM [...] on filedocumented in this encounter Care Teams Door Assembler Relationship Specialty Start Date End Date Melvi Coffey MD [address] [place] [address] PCP - General 11/25/17 03/11/21 Navarro Richardson DO [address] [place] [address] PCP - General Family Medicine 03/12/21 03/14/21 Unknown, Notinfile PCP - General 03/15/21 05/27/21 Navarro Richardson DO [address] [place], [place] [address] PCP - General Family Medicine 05/28/21 10/09/21 Miscellaneous, Not In File PCP - General 10/10/21 2 Miscellaneous, Not In File PCP - General 10/11/21 [facility] [address] [place] [address] PCP - General 01/22/22 05/01/22 Reggie Padilla MD [address] [place] [address] PCP - General Internal Medicine 05/02/22 05/05/23 [facility] [address] [place] [address] PCP - General 05/06/23 08/08/24 Alisha Moe DO [address] [address] PCP - General Family Medicine 08/09/24 10/11/24 Garrett Pierre MD [address] [facility] [address] [place] [address] PCP - General Internal Medicine 10/12/24 03/08/25 Reggie Perry MD [address] [place] [address] PCP - General Internal Medicine 03/09/25 Chas Osuna MD 5201 [facility] [address] [place] [address] Consulting Physician Cardiology 08/09/24 Frank Alvarado MD [address] [place] [address] Consulting Physician Nephrology 08/09/24 Margaret Brewster MD [address] [place] [address] Referring Physician Gastroenterology 08/09/24 documented as of this encounter
--- OUTSIDE RECORDS SUMMARY | 2025-06-15 14:31 | XMS_ITS | Encounter Summary ---
Author Organization [facility] Address [address] [place] [address] Phone Care Team Providers Care Intervention Nurse Name Role Phone [facility] Primary Care Provider Chas Osuna MD Unavailable [phone] Frank Alvarado MD Unavailabl e Margaret Brewster MD Unavailable [phone] Alisha Moe DO Primary Care Provider [phone] Garrett Pierre MD Primary Care Provi sherie Reggie Perry MD Primary Care Provider + Encounter Details Date Type Department Care Team (Latest Contact Info) Description 05/16/2023 Orders Only [facility] Katy Hale, CHICHI [address] [facility] [address] [place] [address] Social History Tobacco Use Types [...] on file 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 Gender Identity Female 06/19/2020 1:01 PM CDT [...] on filedocumented in this encounter Care Teams Intervention Nurse Relationship Specialty Start Date End Date [facility] [address] [place] [address] PCP - General 05/06/23 08/08/24 Alisha Moe DO [address] [address] PCP - General Family Medicine 08/09/24 10/11/24 Garrett Pierre MD [address] [facility] [address] [place] [address] PCP - General Internal Medicine 10/12/24 03/08/25 Reggie Perry MD [address] [place] [address] PCP - General Internal Medicine 03/09/25 Chas Osuna MD [address] [place] [address] Consulting Physician Cardiology 08/09/24 Frank Alvarado MD [address] [place] [address] Consulting Physician Nephrology 08/09/24 Margaret Brewster MD [address] [place] [address] Referring Physician Gastroenterology 08/09/24 documented as of this encounter
--- OUTSIDE RECORDS SUMMARY | 2025-06-15 14:31 | XMS_ITS | Encounter Summary ---
Author Organization [facility] Address [address] [place] [address] Phone Care Team Providers Care Military Logistics Specialist Name Role Phone Reggie Padilla MD Primary Care Provider [phone] [facility] Primary Care Provider [phone] Chas Osuna MD Unavailable [phone] Frank Alvarado MD Unavailabl e Margaret Brewster MD Unavailable [phone] Alisha Moe DO Primary Care Provider [phone] Garrett Pierre MD Primary Care Provi sherie [...] on file Legal Sex Female 10:14 PM MANAGER 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 Gender Identity Female 06/19/2020 1:01 PM CDT [...] on filedocumented in this encounter Care Teams Military Logistics Specialist Relationship Specialty Start Date End Date Reggie Padilla MD [address] [place] [address] PCP - General Internal Medicine 05/02/22 05/05/23 [facility] [address] [place] [address] PCP - General 05/06/23 08/08/24 Alisha Moe DO [address] [facility] [address] [address] PCP - General Family Medicine 08/09/24 10/11/24 Garrett Pierre MD [address] [facility] [address] [place] [address] PCP - General Internal Medicine 10/12/24 03/08/25 Reggie Perry MD [address] [place] [address] PCP - General Internal Medicine 03/09/25 Chas Osuna MD [address] [place] [address] Consulting Physician Cardiology 08/09/24 Frank Alvarado MD [address] [place] [address] Consulting Physician Nephrology 08/09/24 Margaret Brewster MD [address] [place] [address] Referring Physician Gastroenterology 08/09/24 documented as of this encounter
--- OUTSIDE RECORDS SUMMARY | 2025-06-15 14:31 | XMS_ITS | Encounter Summary ---
Author Organization [facility] Address [address] [place] [address] Phone Care Team Providers Care Manometer Technician Name Role Phone Reggie Padilla MD Primary Care Provider [facility] [place] [place] Primary Care Provider [phone] Chas Osuna MD Unavailable [phone] Frank Alvarado MD Unavailabl e Margaret Brewster MD Unavailable [phone] Alisha Moe DO Primary Care Provider [phone] Garrett Pierre MD Primary Care Provi sherie [...] on file 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 Gender Identity Female 06/19/2020 1:01 PM CDT [...] on filedocumented in this encounter Care Teams Manometer Technician Relationship Specialty Start Date End Date Reggie Padilla MD [address] [place] [address] PCP - General Internal Medicine 05/02/22 05/05/23 [facility] [place], [place] [address] [place] [address] PCP - General 05/06/23 08/08/24 Alisha Moe DO 46[address] [facility] [address] [address] PCP - General Family Medicine 08/09/24 10/11/24 Garrett Pierre MD [address] [facility] [address] [place] [address] PCP - General Internal Medicine 10/12/24 03/08/25 Reggie Perry MD [address] [place] [address] PCP - General Internal Medicine 03/09/25 Chas Osuna MD [address] [place] [address] Consulting Physician Cardiology 08/09/24 Frank Alvarado MD [address] [place] [address] Consulting Physician Nephrology 08/09/24 Margaret Brewster MD [address] [place] [address] Referring Physician Gastroenterology 08/09/24 documented as of this encounter
--- OUTSIDE RECORDS SUMMARY | 2025-06-15 14:32 | XMS_ITS | Encounter Summary ---
Author Organization [facility] Address [address] [place] [address] Phone Care Team Providers Care Dip Filler Name Role Phone Chas Osuna MD Unavailable [phone] Frank Alvarado MD Unavailabl e Margaret Brewster MD Unavailable [phone] Reggie Perry MD Primary Care Provider + Encounter Details Date Type Department Care Team (Late st Contact Info) Description 06/09/2025 Results Follow-Up [facility] Nephrology [facility] Advanced Medicine 5th [place] [address] [place] [address] Frank Alvarado MD [address] [place] [address] Protein, urine, 24 hour Social [...] on file Legal Sex Female 10: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 Gender Identity Female 06/19/2020 1:01 PM CDT Sexual Orientation Straight 04/20/2019 8: 05 PM CDT documented as of this encounter Plan of Treatment Not on file documented as of this encounter Visit Diagnoses Not on filedocumented in this encounter Care Teams Dip Filler Relationship Specialty Start Date End Date Reggie Perry MD [address] [place] [address] PCP - General Internal Medicine 03/09/25 Chas Osuna MD [address] [place] [address] Consulting Physician Cardiology 08/09/24 Frank Alvarado MD [address] [place] [address] Consulting Physician Nephrology 08/09/24 Margaret Brewster MD [address] [place] [address] Referring Physician Gastroenterology 08/09/24 documented as of this encounter
--- OUTSIDE RECORDS SUMMARY | 2025-06-15 14:32 | XMS_ITS | Encounter Summary ---
Author Organization [facility] Healthcare Address [address] [place] [address] Care Team Providers Care Web Mobile Designer Name Role Phone Chas Osuna MD Unavailable [phone] Frank Alvarado MD Unavailabl e Margaret Brewster MD Unavailable [phone] Reggie Perry MD Primary Care Provider + Encounter Details Date Type Department Care Team (Late st Contact Info) Description 06/15/2025 Results Follow-Up [facility] Medical [facility] Primary Care [address] [place] [address] Caro Mallory PA [address] [place], [place] [id number] XR Chest Pa Lateral 2 Views Social History Tobacco Use Types Packs/Day Years [...] on file 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 Gender Identity Female 06/19/2020 1:01 PM CDT Sexual Orientation Straight 04/20/2019 8: 05 PM CDT documented as of this encounter Plan of Treatment Not on file documented as of this encounter Visit Diagnoses Not on filedocumented in this encounter Care Teams Web Mobile Designer Relationship Specialty Start Date End Date Reggie Perry MD [address] [place] [address] PCP - General Internal Medicine 03/09/25 Chas Osuna MD [address] [facility] [address] [place] [address] Consulting Physician Cardiology 08/09/24 Frank Alvarado MD [address] [place] [address] Consulting Physician Nephrology 08/09/24 Margaret Brewster MD [address] [place] [address] Referring Physician Gastroenterology 08/09/24 documented as of this encounter
== END 2025-06-15 12:45 | disposition home or self-care (01) ==
LOC: ANHFOHIMG 12:46
PROVIDERS: PCP Obstetrics & Gynecology; Visit Provider Obstetrics & Gynecology
DX: N63.41 Unspecified lump in right breast, subareolar (principal)
CPT/HCPCS: 76642; 77061; 77065; G0279